=== PATIENT | male | born 1940 | race Caucasian/White ===

== ENCOUNTER 2020-01-14 12:06 | Inpatient (IN) | payer MEDICARE, SELFPAY ==
[2020-01-14] VITALS (9 sets, daily range): BP systolic 106–142; BP diastolic 56–96; PULSE 39–68; RESP 16–22; TEMP 36.1–36.6; O2SAT 99–100; BMI 37.5
--- NOTE | ~2020-01-14 | CT_ITS ---
EXAMINATION: CT brain wo con INDICATION: Dizziness COMPARISON: None TECHNIQUE: Standard unenhanced head CT. The dose-length product (DLP) was 681.00 mGy-cm. The mA was a djusted according to patient size. Iterative reconstruction technique was employed. FINDINGS: There is no acute intraparenchymal hemorrhage. No evidence of mass lesion. No evidence of a cute infarction. There is mild periventricular and subcortical hypodensity probably related to small vessel ischemic disease. There is mild prominence of the sulci and ventricles related to cerebral atr ophy. Intracranial calcified cerebral atherosclerosis is noted. There are no extra-axial collections. There is no mass effect or midline shift. The orbits and soft tissues are unremarkable. The visuali zed sinuses and mastoid air cells are well aerated. IMPRESSION: 1. No acute intracranial abnormality. 2. Age related findings. Reviewed, dictated and finalized at location A.
--- NOTE | ~2020-01-14 | US_ITS ---
EXAMINATION: US venous doppler [facility] DATE: 01/15/2020 12:42 INDICATION: Bilateral lower limb edema TECHNIQUE: Decker scale images without and with compression and Doppler images of the bilateral lower e xtremity veins were obtained. COMPARISON: None FINDINGS: The right common femoral vein, profunda femoral vein, femoral vein, popliteal vein, peroneal trunk, p osterior tibial veins, and greater saphenous vein are patent. The left common femoral vein, profunda femoral vein, femoral vein, popliteal vein, peroneal trunk, po sterior tibial veins, and greater saphenous vein are patent. IMPRESSION: 1. Patent bilateral lower extremity veins. No evidence of deep venous thrombosis. Reviewed, dictated and finalized at location A. IMPRESSION: 1. Patent bilateral lower extremity veins. No evidence of deep venous thrombosi s.
--- NOTE | ~2020-01-14 | MR_ITS ---
EXAMINATION: MR brain/brain stem wo con DATE: 01/15/2020 13:09 INDICATION: Falls with weakness, unsteady gait and balance issues. TECHNIQUE: Magnetic resonance imaging (MRI) of the brain and brainstem was performed without intraven ous contrast. Sequences included sagittal and axial T1-weighted SE, axial diffusion-weighted FS SE, a xial T2*-weighted GRE, axial T2-weighted FLAIR, and axial T2-weighted FSE. Apparent diffusion coeffic ient (ADC) maps were created. COMPARISON: Head CT dated 01/14/2020 FINDINGS: There are no areas of restricted diffusion to suggest acute infarction. No intracranial hemorrhage or abnormal intracranial mass lesion. There are scattered areas of nonspecific increased T2-weighted si gnal intensity in the cerebral white matter, predominantly involving the deep and periventricular whi te matter. There are no intraparenchymal signal abnormalities seen on the other pulse sequences. Symm etric prominence of the sulci and ventricles consistent with mild age-appropriate diffuse cerebral vo lume loss. The ventricles are symmetric and normal in size. There are no abnormal extra-axial fluid c ollections. Flow voids are seen in the cerebral arteries on the T2-weighted sequences consistent with their expected patency. Changes of bilateral intraocular lens replacement. Mild mucosal thickening i n the bilateral ethmoid and maxillary sinuses. Trace left mastoid effusion. IMPRESSION: 1. No acute intracranial process. 2. Age-related changes including mild diffuse volume loss and mild to moderate scattered nonspecific white matter T2 hyperintensity consistent with chronic small vessel ischemic disease. Reviewed, dictated and finalized at location A. IMPRESSION: 1. No acute intracranial process. 2. Age-related changes including mild diffuse volume loss and mild to moderate scattered nonspecific white matter T2 hyperintensity consistent with chronic sm all vessel ischemic disease.
--- NOTE | ~2020-01-14 | XR_ITS ---
EXAMINATION: XR chest 2V DATE: 01/14/2020 12:22 INDICATION: Weakness and loss of balance TECHNIQUE: AP and lateral views of the chest are obtained. COMPARISON: 11/26/2013 FINDINGS: The lungs are free of acute opacities. There is no pleural effusion or pneumothorax. Cardio megaly is noted. There is moderate-sized hiatal hernia. There is moderate thoracic spondylosis. IMPRESSION: 1. No acute cardiopulmonary abnormality. Reviewed, dictated and finalized at location A.
--- NOTE | 2020-01-14 12:11 | ECG_ITS ---
Measurements Intervals [place] Rate: 65 P: [place]: 0 QRS: -11 QRSD: 93 T: 1 QT: 431 QTc: 449 Interpretive Statements ATRIAL FIBRILLATION LOW QRS VOLTAGE IN PRECORDIAL LEADS BORDERLINE R WAVE PROGRESSION, ANTERIOR LEADS BASELINE ARTIFACT- V2 ABNORMAL ECG Electronically Signed On 01-14-2020 12:43:32 CDT by Devon Jarvis D.O.
[2020-01-14 12:35] LABS: Basophils Absolute Auto 0.1 K/mm3 (0.0-0.1); Basophils Percent Auto 1.2 % (0.2-1.2); Eosinophils Absolute Auto 0.1 K/mm3 (0-0.3); Eosinophils Percent Auto 1.2 % (0-4.4); Hematocrit 42.5 % (42.0-52.0); Hemoglobin 14.2 g/dL (14.0-18.0); Immature Granulocyte Absolute 0.02 K/mm3 (0.00-0.031); Immature Granulocyte Percent A 0.3 % (0-0.5); Lymphocytes Absolute Auto 2.01 K/mm3 (0.9-3.2); Lymphocytes Percent Auto 29.1 % (18.3-44.2); Mean Corpuscular HGB Conc 33.4 g/dl (32-36); Mean Corpuscular Hemoglobin 31.7 pg (26-34); Mean Corpuscular Volume 94.9 fl (80-100); Mean Platelet Volume 9.6 fl (7.4-10.4); Monocytes Absolute Auto 0.8 K/mm3 (0.1-0.6); Monocytes Percent Auto 11.6 % (2.6-8.5); Neutrophils Absolute Auto 3.9 K/mm3 (1.3-6.7); Neutrophils Percent Auto 56.6 % (45.5-73.1); Platelet Count Result 245 k/mm3 (150-375); Red Blood Count 4.48 M/mm3 (4.6-6.20); Red Cell Distribution Width 12.7 % (11.5-14.5); White Blood Count 6.9 K/mm3 (4.5-10.0)
[2020-01-14 12:48] LABS: Alanine Aminotransferase 32 U/L (4-50); Albumin Level 4.4 g/dL (3.5-5.1); Alkaline Phosphatase 61 U/L (38-126); Anion Gap 10 mmol/L (8-16); Aspartate Amino Transferase 36 U/L (17-59); Bilirubin,Total 0.6 mg/dL (0.2-1.3); Blood Urea Nitrogen 18 mg/dL (9-20); Calcium 8.7 mg/dL (8.4-10.2); Carbon Dioxide 29 mmol/L (22-30); Chloride 96 mmol/L (98-107); Estimated CRCL calculation 91 ml/min; Estimated Glomerular Filt Rate > 60; Glucose 156 mg/dL (75-110); Potassium 4.6 mmol/L (3.4-5.0); Sodium 135 mmol/L (137-145)
[2020-01-14 12:50] LABS: INR 2.4
[2020-01-14 12:59] LABS: NT Pro B Type Natriuretic Pept 793 PG/ML (5-100); Troponin I < 0.012 ng/mL (0.000-0.034)
--- NOTE | 2020-01-14 13:45 | ED.WEAKNESS ---
HPI - Weakness General Chief complaint: Weakness Stated complaint: dizziness Time Seen by Provider: 01/14/20 12:14 Source: patient, family and EMS Mode of arrival: EMS Limitations: no limitations History of Present Illness HPI Narrative: 79-year-old with a history of hypertension, diabetes, AF was brought in from home with complaints of feeling extremely dizzy for past 2 days. Patient states that he is unable to balance himself, fell couple times at home. He denies any headache, chest pain, shortness of breath. No history of nausea or vomiting. MD Complaint: generalized weakness Onset (ago): day(s) (2) Duration: constant Location: generalized Migration: none Relieving factors: none Exacerbating factors: none Related Data Home Medications Medication Instructions Recorded Confirmed tamsulosin 0.4 mg capsule 0.4 mg PO DAILY 12/15/19 12/15/19 Allergies Allergy/AdvReac Type Severity Reaction Status Date / Time No Known Allergies Allergy Verified 01/14/20 13:17 Review of Systems Constitutional: Constitutional: Reports as per HPI Eyes: Eyes: Reports no additional eye complaints ENT: Reports system reviewed and no additional complaints, except as documented Cardiovascular: Cardiovascular: Reports no additional cardiovascular complaints Respiratory: Respiratory: Reports no additional respiratory complaints Gastrointestinal: Gastrointestinal: Reports no additional gastrointestinal complaints Musculoskeletal: Musculoskeletal: Reports no additional musculoskeletal complaints Integumentary/Breasts: Skin/Breast: Reports system reviewed and no additional complaints, except as docu Neurologic: Reports system reviewed and no additional complaints, except as documented PMFSH Past Medical History Medical History Personal history of malignant neoplasm of bladder Social History Social History Smoking status: Never smoker Alcohol intake: never Exam Narrative: Exam Narrative: GENERAL: Well-appearing, well-nourished, and in no acute distress. HEAD: Normocephalic, atraumatic. EYES: .blind ENT: Nares clear, no rhinorrhea or epistaxis. Mucous membranes moist. NECK: Supple. CHEST: Clear to auscultation. No respiratory distress. HEART: Irregular ABDOMEN: Soft, nontender, nondistended, normal active bowel sounds. EXTREMITIES: Normal range of motion. No edema. SKIN: Warm, dry, no rash. NEURO: No focal deficits. Alert and oriented x3. PSYCH: Normal mood and affect. Course Course Emergency Course: Letter given history of unstable gait, fall will do a CT of the head make sure there is no bleed or stroke. Also do CBC and chemistry make sure that he is not anemic or having electrolyte imbalance. I suspect most likely could be from his peripheral neuropathy that his balance is off at this time however posterior cerebellar stroke stroke cannot be excluded. I discussed lab, CT Scan results with pt and is , pt is uncomfortable taking him home and is fear of falling. Vital Signs Vital signs: Vital Signs Temperature 36.6 C 01/14/20 12:05 Pulse Rate 67 01/14/20 12:05 Respiratory Rate 22 H 01/14/20 12:05 Blood Pressure 132/76 01/14/20 12:05 Pulse Oximetry 100 01/14/20 12:05 Temperature 36.6 C 01/14/20 12:05 Pulse Rate 51 L 01/14/20 13:18 Respiratory Rate 18 01/14/20 13:18 Blood Pressure 142/96 H 01/14/20 13:18 Pulse Oximetry 99 01/14/20 13:18 MDM - Weakness Differential Diagnosis Differential diagnosis: Likely hypoglycemia, dehydration and other (CVA, peripheral neuropathy, vertigo) Lab Data Result diagrams: 01/14/20 12:22 01/14/20 12:22 Labs: Lab Results 01/14/20 01/14/20 01/14/20 Range/Units 12:22 12:22 12:22 WBC 6.9 (4.5-10.0) K/mm3 RBC 4.48 L (4.6-6.20) M/mm3 Hgb 14.2 (14.0-18.0) g/dL Hct 42.5 (42.0-52.0)
[2020-01-14 15:05] LABS: Add Urine Microscopic? YES; Appearance Urine Cloudy (Clear); Bilirubin Urine Negative (Negative); Blood Urine Negative (Negative); Color Urine Yellow (Yellow); Glucose Urine UA Negative (Negative); Ketones Urine Negative (Negative); Leukocyte Esterase Ur Negative LEU/UL (Negative); Nitrate Urine Negative (Negative); Protein Urine Negative (Negative); RBC Urine 0-2 /hpf (0-2); Specific Grav Ur 1.014 (1.001-1.035); Squamous Epithelial Cell Urine Rare /hpf (Few); Urobilinogen Urine Negative mg/dL (<2.0); WBC Urine 0-3 /hpf
--- NOTE | 2020-01-14 15:15 | ADMGEN ---
This patient, Neri Ruiz, was admitted to Medical Room 249-01. Patient/family oriented to hospital policies and general routines including ID bracelet, bed and alarms, visiting hours, pain management, procedures, bathroom and other care routines, personal items, smoking policy, room service/diet, and visiting hours. Valuables list has been completed. Information on how to activate the Rapid Response Team has been discussed. Patient/Family are encouraged to report perceived risks to care and to ask questions if they do not understand what they are told or what they should do.
--- NOTE | 2020-01-14 17:15 | PM.IMHP ---
H&P: HPI History of Present Illness Date/Time: 01/14/20 17:30 Chief complaint: Falls, balance problems. 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 For the past couple of days he has been extremely off balance, and is difficult for him to further qualify that. Apparently he reported to the ED physician that he was feeling dizzy, however denies feeling lightheaded and dizzy to me and says I just keep losing my balance. He does not necessarily have vertigo either, specifically denying spinning sensations and feelings of being pulled. Two nights ago he fell, requiring EMS to come for lift assist, and he declined transport at that time. Unfortunately, his balance continues to be poor, mainly when standing and walking and thus he was brought in for evaluation. He denies head trauma and loss of consciousness with his falls, and states that he did not injure himself. It is been documented that he has peripheral neuropathy from his diabetes, however he adamantly denies that to me. He also denies paresthesias, focal weakness, chest pain, pleuritic pain, palpitations, and shortness of breath. He has been eating and drinking as per usual and denies nausea, vomiting, and diarrhea. He has not had any recent change in medications, and his pills are dispensed to him by his , thus he could not have accidentally taken extra medication. Review of Systems Review of Systems: Narrative: Twelve systems were reviewed with pertinent positives and negatives as per HPI. No headache. 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 No recent cold or flu symptoms. He denies recent travel and sick contacts. No cough or shortness of breath. He denies nausea, vomiting, diarrhea. No dysuria. Except as documented, all other systems were reviewed and are negative. [facility] Past Medical History Medical History (Updated 01/14/20 @ 18:34 by Lilliam Rice PA-C) Atrial fibrillation Benign prostatic hyperplasia Current use of senior care anticoagulation On warfarin for stroke prophylaxis due to atrial fibrillation. Depression Essential hypertension Gastroesophageal reflux disease Hearing loss Hiatal hernia Legal blindness Secondary to macular degeneration. Mixed hyperlipidemia Obstructive sleep apnea on CPAP Osteoarthritis Personal history of malignant neoplasm of bladder Type 2 diabetes mellitus Hemoglobin A1c was 7.1% in November 2019. Surgical History Surgical History (Updated 01/14/20 @ 18:22 by Lilliam Rice PA-C) History of appendectomy History of tonsillectomy Family History Family History Other Adopted Social History Social History (Updated 01/14/20 @ 18:23 by Lilliam Rice PA-C) Social History: Surrogate decision maker: Celina Ruiz, spouse. Code status: Full code. Smoking status: Never smoker Alcohol intake: never Substance use: never Additional living arrangements comments: Resides in [place], [place] with his . They have 2 grown daughters. 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 Previously enjoyed flying single engine airplanes. Gender identity (if verbalized by the patient): Male Spiritual care concerns: No Meds Home Medications and Allergies Home Medications Medication Instructions Recorded Confirmed Type glipizide 5 mg tablet, extended 5 mg PO DAILY #90 tablet 06/07/19 01/14/20 Rx release 24 hr spironolactone 25 mg tablet 25 mg PO DAILY #90 tablet 10/13/19 01/14/20 Rx metoprolol tartrate 25 mg tablet 25 mg P
[2020-01-14 17:48] LABS: Glucose Point of Care 124 (65-105)
[2020-01-14] MEDS: SERTRALINE HCL 50 MG TABLET PO (21:31)
[2020-01-14 22:13] LABS: Glucose Point of Care 128 (65-105)
[2020-01-15] VITALS (21 sets, daily range): BP systolic 101–141; BP diastolic 48–88; PULSE 46–86; RESP 12–20; TEMP 35.8–37.2; O2SAT 96–100
[2020-01-15 06:04] LABS: Hematocrit 40.4 % (42.0-52.0); Hemoglobin 13.4 g/dL (14.0-18.0); Mean Corpuscular HGB Conc 33.2 g/dl (32-36); Mean Corpuscular Hemoglobin 31.5 pg (26-34); Mean Corpuscular Volume 94.8 fl (80-100); Mean Platelet Volume 9.5 fl (7.4-10.4); Platelet Count Result 239 k/mm3 (150-375); Red Blood Count 4.26 M/mm3 (4.6-6.20); Red Cell Distribution Width 12.5 % (11.5-14.5); White Blood Count 6.3 K/mm3 (4.5-10.0)
[2020-01-15 06:22] LABS: Alanine Aminotransferase 31 U/L (4-50); Alkaline Phosphatase 65 U/L (38-126); Anion Gap 8 mmol/L (8-16); Aspartate Amino Transferase 36 U/L (17-59); Bilirubin,Total 0.6 mg/dL (0.2-1.3); Blood Urea Nitrogen 16 mg/dL (9-20); Calcium 8.6 mg/dL (8.4-10.2); Carbon Dioxide 26 mmol/L (22-30); Chloride 100 mmol/L (98-107); Estimated CRCL calculation 90 ml/min; Estimated Glomerular Filt Rate > 60; Glucose 130 mg/dL (75-110); Magnesium 2.5 mg/dL (1.6-2.3); Potassium 4.1 mmol/L (3.4-5.0); Sodium 134 mmol/L (137-145)
[2020-01-15 06:39] LABS: INR 2.6; Prothrombin Time 27.2 Seconds (11.1-14.7)
[2020-01-15] MEDS: ATORVASTATIN 20 MG TABLET PO (09:14)
[2020-01-15] MEDS: TAMSULOSIN HCL 0.4 MG CAPSULE PO (09:14)
[2020-01-15] MEDS: glipiZIDE XL 5 MG TABCR PO (09:14)
[2020-01-15] MEDS: SPIRONOLACTONE 25 MG TABLET PO (09:15)
[2020-01-15] MEDS: PANTOPRAZOLE 40 MG TABLET PO ×2 (09:15→16:51)
[2020-01-15 09:25] LABS: Glucose Point of Care 159 (65-105)
[2020-01-15] MEDS: ASPIRIN 81 MG CHEWABLE TABLET PO (09:55)
[2020-01-15] MEDS: LOSARTAN POTASSIUM 25 MG TABLET PO (12:01)
--- NOTE | 2020-01-15 13:06 | PM.IMPN ---
Progress Note: A&P Assessment and Plan (1) Recurrent falls: Code(s): R29.6 - Repeated falls Status: Acute Assessment and Plan: I am not certain why he just began having falls over the past couple of days, but seem to be related to his new onset of balance problems. Head CT and MRI were obtained due to concern for posterior stroke, both negative for acute process. He is orthostatic which may be contributing. Monitor on telemetry. Initiate fall precautions and consult PT/OT. (2) Balance problem: Code(s): R26.89 - Other abnormalities of gait and mobility Status: Acute Assessment and Plan: Patient has a difficult time describing why he feels off balance, but he denies vertigo, lightheadedness, and dizziness. He feels he must grab on to something to steady himself. 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 He denies symptoms with positional changes. As above, will initiate fall precautions and consult PT / OT. Brain MRI was negative for acute process. Patient is orthostatic which may explain symptoms. Continue to monitor Echo has been ordered and will await results (3) Orthostatic hypotension: Code(s): I95.1 - Orthostatic hypotension Status: Acute Assessment and Plan: Patient is orthostatic but reports he is asymptomatic with positional changes. Patient is euvolemic. Apply Edy hose Monitor orthostatics each shift Hold antihypertensives at this time and monitor blood pressures closely (4) Atrial fibrillation: Code(s): I48.91 - Unspecified atrial fibrillation Status: Acute Assessment and Plan: Rate controlled the time my evaluation however he has had episodes of bradycardia into the 30s and 40s. Review of telemetry shows atrial fibrillation with episodes of bradycardia into the 30-40s and sinus pauses. He remains asymptomatic with episodes. Possible that bradycardia/pauses are contributing to his balance issues/falls and therefore will obtain cardiology consult and appreciate recommendations. Continue metoprolol with parameters. (5) Current use of mcfp anticoagulation: Code(s): Z79.01 - intermodal dispatcher (current) use of anticoagulants Status: Acute Assessment and Plan: INR is 2.6 today. Warfarin had been held while awaiting MRI to rule out acute stroke. MRI was negative. Resume Warfarin Repeat INR tomorrow (6) Obstructive sleep apnea on CPAP: Code(s): G47.33 - Obstructive sleep apnea (adult) (pediatric); Z99.89 - Dependence on other enabling machines and devices Status: Acute Assessment and Plan: CPAP will be made available for him while hospitalized. (7) Essential hypertension: Code(s): I10 - Essential (primary) hypertension Status: Acute Assessment and Plan: Blood pressures were reviewed and they are well controlled however patient is orthostatic. Hold antihypertensives at this time and monitor blood pressures closely (8) Type 2 diabetes mellitus: Code(s): E11.9 - Type 2 diabetes mellitus without complications Status: Acute Assessment and Plan: Hemoglobin A1c was 7.1% in November 2019. Continue glipizide Initiate sliding scale insulin, Accu-Cheks, and hypoglycemic protocol. Subjective Date/time seen: 01/15/20 13:06 Interval history: Date of service: 01/15/2020 Patient is a legally blind 79-year-old male with a history of AFib, HTN, HLD, and RACHAEL who is here for evaluation of falls and balance problems. Patient reports that he is feeling well today. At this time, he denies any dizziness or lightheadedness. He says a when he gets up and walks he feels unsteady on his feet almost as if the earth is moving below him and he must grab onto something for balance. At rest, he feels comfortable. He does not endorse symptoms with positional changes.
[2020-01-15 13:29] LABS: Glucose Point of Care 125 (65-105)
[2020-01-15] MEDS: WARFARIN (*PBKC) 4 MG TABLET 8 MG PO (17:55)
[2020-01-15] MEDS: WARFARIN (*PBKC) 1 MG TABLET PO (17:56)
[2020-01-15 18:15] LABS: Glucose Point of Care 111 (65-105)
--- NOTE | 2020-01-15 18:50 | PC.NURSE ---
This patient, Neri Ruiz, was transferred to IMU on 01/15/20 at 1851. Personal belongings sent with patient. Belongings list checked and signed with receiving. Report given to Yumiko. Appropriate documentation sent with patient.
--- NOTE | 2020-01-15 18:55 | PC.NURSE ---
This patient, Neri uRiz, was received from [[id number] ] on 01/15/20 at 1845. Personal belongings list checked and signed. Patient/family oriented to unit policies and routines. Patient alert, awake, oriented. Vital signs stable, Patient on room air.
[2020-01-15 20:19] LABS: Glucose Point of Care 127 (65-105)
[2020-01-15] MEDS: SERTRALINE HCL 50 MG TABLET PO (20:22)
[2020-01-16] VITALS (20 sets, daily range): BP systolic 109–142; BP diastolic 54–84; PULSE 54–89; RESP 16–22; TEMP 36.1–36.6; O2SAT 95–100
[2020-01-16 04:58] LABS: Hematocrit 40.8 % (42.0-52.0); Hemoglobin 13.8 g/dL (14.0-18.0); Mean Corpuscular HGB Conc 33.8 g/dl (32-36); Mean Corpuscular Hemoglobin 32.2 pg (26-34); Mean Corpuscular Volume 95.1 fl (80-100); Mean Platelet Volume 9.4 fl (7.4-10.4); Platelet Count Result 225 k/mm3 (150-375); Red Blood Count 4.29 M/mm3 (4.6-6.20); Red Cell Distribution Width 12.5 % (11.5-14.5); White Blood Count 6.7 K/mm3 (4.5-10.0)
[2020-01-16 05:08] LABS: INR 1.9; Prothrombin Time 21.2 Seconds (11.1-14.7)
[2020-01-16 05:44] LABS: Alanine Aminotransferase 31 U/L (4-50); Albumin Level 3.9 g/dL (3.5-5.1); Alkaline Phosphatase 58 U/L (38-126); Anion Gap 7 mmol/L (8-16); Aspartate Amino Transferase 37 U/L (17-59); Blood Urea Nitrogen 14 mg/dL (9-20); Calcium 8.6 mg/dL (8.4-10.2); Carbon Dioxide 26 mmol/L (22-30); Chloride 101 mmol/L (98-107); Estimated CRCL calculation 90 ml/min; Estimated Glomerular Filt Rate > 60; Glucose 156 mg/dL (75-110); Magnesium 2.3 mg/dL (1.6-2.3); Potassium 4.3 mmol/L (3.4-5.0); Sodium 134 mmol/L (137-145)
--- NOTE | 2020-01-16 08:16 | PCPTNOTE ---
Patient okay to be continued to be seen by physical therapy, medically stable to progress as tolerated.
--- NOTE | 2020-01-16 08:17 | PCOTNOTE ---
Spoke to RN, ok to continue Occupational Therapy at this time.
[2020-01-16 08:56] LABS: Glucose Point of Care 157 (65-105)
--- NOTE | 2020-01-16 09:32 | PM.CNCAR ---
Assessment and Plan Additional Plan 79-year-old man who probably has chronic atrial fibrillation by his history. He has been treated with metoprolol and warfarin by his PCP and has not really had any other cardiac history from what he tells me. The concern at hand is that he has episodes of bradycardia. He is on a very small dose of metoprolol but nothing else to provide rate control. He is systemically anticoagulated with warfarin and his INR has been therapeutic. I would recommend discontinuing the metoprolol as I doubt he needs it for rate control any longer and follow his telemetry. At this point he does not have an indication for pacing he has no history of syncope with regard to this bradycardia. We will follow him with you while he is in the hospital Anatoliy Munoz MD [facility] History of Present Illness History of Present Illness Consult date/time: date of service:01/16/20 09:32 Consult reason: atrial fibrillation Reason For Visit: Falls, balance problems. Narrative: This is a 79-year-old man who I am seeing at the request of the hospitalist because of bradycardia which was noted on telemetry. He is unknown to me prior to this encounter. The patient is I believe legally blind and but is able to provide a fairly good history. He states that he was admitted to the hospital because he was having difficulty with unsteadiness of his gait at home. Over the last year this unsteady gait his resulted in a couple of falls he does not fall with any frequency he has never lost consciousness or had an abrupt syncopal episode. In the hospital he has been placed on telemetry and it is noticed that he is in atrial fibrillation with a somewhat slow ventricular response. At times his heart rate him on telemetry was as low as in the 30s and 40s so he was transferred to IMU from the regular telemetry floor last evening and we have been asked to see him in consultation. The patient follows with Dr. Macario Ferreira who is his PCP does not believe that he follows with a supervisor production managing. He does have a history of atrial fibrillation for a number of years he does not really know how many years this has been. He does not believe there has been any other difficulty with his heart besides AFib. For treatment of this he is taking warfarin and metoprolol. His metoprolol dosage is rather low at 25 mg daily. He does not report any symptoms of chest pain pressure or heaviness he denies any orthopnea PND or accumulating edema. Review of Systems Constitutional: Constitutional: Reports as per HPI Eyes: Eyes: Reports no additional eye complaints ENT: Reports system reviewed and no additional complaints, except as documented Cardiovascular: Cardiovascular: Reports no additional cardiovascular complaints Respiratory: Respiratory: Reports no additional respiratory complaints Gastrointestinal: Gastrointestinal: Reports no additional gastrointestinal complaints Genitourinary: Genitourinary: Reports no additional male genitourinary complaints Musculoskeletal: Musculoskeletal: Reports no additional musculoskeletal complaints Integumentary/Breasts: Skin/Breast: Reports system reviewed and no additional complaints, except as docu Neurologic: Reports abnormal gait Psychiatric: Psychiatric: Reports no additional psychiatric complaints Endocrine: Endocrine: Reports no additional endocrine complaints Hematologic/Lymphatic: Hematologic/Lymphatic: Reports no additional hematologic/lymphatic complaints Allergic/Immunologic: Allergic/Immunologic: Reports no additional allergic/immunologic complaints [facility] Past Medical History Medical History (Updated 01/15/20 @ 13:09 by Nancy Jay PA-C) Atrial fibrillation Benign prostatic hyperplasia Current use of mcfp anticoagulation On warfarin for stroke prophylaxis due to atrial fibrillation. Depression Essential hypertension Gastroesophageal reflux disease Hearing loss Hiatal hernia Legal blindness Se
[2020-01-16] MEDS: PERFLUTREN LIPID MICROSPHERES 1.5 ML VIAL DILUTED TO 10 ML TOTAL VOLUME IV PUSH (09:40)
[2020-01-16] MEDS: ATORVASTATIN 20 MG TABLET PO (10:03)
[2020-01-16] MEDS: ASPIRIN 81 MG CHEWABLE TABLET PO (10:03)
[2020-01-16] MEDS: glipiZIDE XL 5 MG TABCR PO (10:03)
[2020-01-16] MEDS: TAMSULOSIN HCL 0.4 MG CAPSULE PO (10:03)
[2020-01-16] MEDS: PANTOPRAZOLE 40 MG TABLET PO ×2 (10:04→17:05)
[2020-01-16] MEDS: SPIRONOLACTONE 25 MG TABLET PO (10:04)
--- NOTE | 2020-01-16 11:47 | P.PNIM_ITS ---
Progress Note: A&P Assessment and Plan (1) Recurrent falls: Code(s): R29.6 - Repeated falls Status: Acute Assessment and Plan: This seems to be related to his new onset of balance problems. Head CT and MRI were obtained due to concern for posterior stroke, both negative for acute process. He is orthostatic which may be contributing though he denies positional symptoms. * Monitor on telemetry. * Fall precautions and continue PT/OT. (2) Balance problem: Code(s): R26.89 - Other abnormalities of gait and mobility Status: Acute Assessment and Plan: Patient has a difficult time describing why he feels off balance, but he denies vertigo, lightheadedness, and dizziness. He feels he must grab on to something to steady himself. 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 He denies symptoms with positional changes. * As above, continue fall precautions and consult PT / OT. * Brain MRI was negative for acute process. * Patient is orthostatic which may contribute to symptoms. Continue to monitor * Echo has been performed and will await results (3) Orthostatic hypotension: Code(s): I95.1 - Orthostatic hypotension Status: Acute Assessment and Plan: Reports he is asymptomatic with positional changes. Patient is euvolemic. On r epeat monitoring today, he was not orthostatic. * Apply Edy hose * Monitor orthostatics each shift * Hold antihypertensives at this time and monitor blood pressures closely (4) Atrial fibrillation: Code(s): I48.91 - Unspecified atrial fibrillation Status: Acute Assessment and Plan: Review of telemetry shows atrial fibrillation with episodes of bradycardia into the 30-40s with sinus pauses lasting about 2 seconds. He remains asymptomatic with episodes. * Possible that bradycardia/pauses are contributing to his balance issues/falls and therefore will obtain cardiology consult and appreciate recommendations. * Metoprolol has been discontinued per cardiology recommendations. Monitor telemetry (5) Current use of superintendent container terminal anticoagulation: Code(s): Z79.01 - shelter (current) use of anticoagulants Status: Acute Assessment and Plan: Warfarin had been held while awaiting MRI to rule out acute stroke. MRI was negative. * Warfarin resumed 01/14. INR just below therapeutic range today at 1.9. No adjustments to be made at this time as this was probably a result of holding warfarin. Repeat INR tomorrow. (6) Obstructive sleep apnea on CPAP: Code(s): G47.33 - Obstructive sleep apnea (adult) (pediatric); Z99.89 - Dependence on o ther enabling machines and devices Status: Acute Assessment and Plan: * CPAP will be made available for him while hospitalized. (7) Essential hypertension: Code(s): I10 - Essential (primary) hypertension Status: Acute Assessment and Plan: Blood pressures were reviewed and they are well controlled, however patient is orthostatic. * Hold Losartan and monitor blood pressures closely (8) Type 2 diabetes mellitus: Code(s): E11.9 - Type 2 diabetes mellitus without complications Status: Acute Assessment and Plan: Hemoglobin A1c was 7.1% in November 2019. * Continue glipizide * sliding scale insulin, Accu-Cheks, and hypoglycemic protocol. Subjective Date/time seen: 01/16/20 11:47 Interval history: Date of service: 01/14
--- NOTE | 2020-01-16 11:47 | PM.IMPN ---
Progress Note: A&P Assessment and Plan (1) Recurrent falls: Code(s): R29.6 - Repeated falls Status: Acute Assessment and Plan: This seems to be related to his new onset of balance problems. Head CT and MRI were obtained due to concern for posterior stroke, both negative for acute process. He is orthostatic which may be contributing though he denies positional symptoms. Monitor on telemetry. Fall precautions and continue PT/OT. (2) Balance problem: Code(s): R26.89 - Other abnormalities of gait and mobility Status: Acute Assessment and Plan: Patient has a difficult time describing why he feels off balance, but he denies vertigo, lightheadedness, and dizziness. He feels he must grab on to something to steady himself. 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 He denies symptoms with positional changes. As above, continue fall precautions and consult PT / OT. Brain MRI was negative for acute process. Patient is orthostatic which may contribute to symptoms. Continue to monitor Echo has been performed and will await results (3) Orthostatic hypotension: Code(s): I95.1 - Orthostatic hypotension Status: Acute Assessment and Plan: Reports he is asymptomatic with positional changes. Patient is euvolemic. On repeat monitoring today, he was not orthostatic. Apply Edy hose Monitor orthostatics each shift Hold antihypertensives at this time and monitor blood pressures closely (4) Atrial fibrillation: Code(s): I48.91 - Unspecified atrial fibrillation Status: Acute Assessment and Plan: Review of telemetry shows atrial fibrillation with episodes of bradycardia into the 30-40s with sinus pauses lasting about 2 seconds. He remains asymptomatic with episodes. Possible that bradycardia/pauses are contributing to his balance issues/falls and therefore will obtain cardiology consult and appreciate recommendations. Metoprolol has been discontinued per cardiology recommendations. Monitor telemetry (5) Current use of intermediate frame tender anticoagulation: Code(s): Z79.01 - [facility] (current) use of anticoagulants Status: Acute Assessment and Plan: Warfarin had been held while awaiting MRI to rule out acute stroke. MRI was negative. Warfarin resumed 01/14. INR just below therapeutic range today at 1.9. No adjustments to be made at this time as this was probably a result of holding warfarin. Repeat INR tomorrow. (6) Obstructive sleep apnea on CPAP: Code(s): G47.33 - Obstructive sleep apnea (adult) (pediatric); Z99.89 - Dependence on other enabling machines and devices Status: Acute Assessment and Plan: CPAP will be made available for him while hospitalized. (7) Essential hypertension: Code(s): I10 - Essential (primary) hypertension Status: Acute Assessment and Plan: Blood pressures were reviewed and they are well controlled, however patient is orthostatic. Hold Losartan and monitor blood pressures closely (8) Type 2 diabetes mellitus: Code(s): E11.9 - Type 2 diabetes mellitus without complications Status: Acute Assessment and Plan: Hemoglobin A1c was 7.1% in November 2019. Continue glipizide sliding scale insulin, Accu-Cheks, and hypoglycemic protocol. 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 he denies any feelings of being off balance at this time. He worked with therapy earlier and tolerated this well. He did not feel dizzy or lightheaded. He denies symptoms at rest or with exertion. He did not any symptoms with positional changes. He denies chest pain or palpitations. He denies weakness
[2020-01-16] MEDS: INSULIN ASPART (*BKC) 100 UNITS/ML SUB-Q (11:58)
[2020-01-16 12:06] LABS: Glucose Point of Care 216 (65-105)
[2020-01-16] MEDS: MAGNESIUM HYDROXIDE SUSP 30 ML UDC PO (14:40)
[2020-01-16] MEDS: WARFARIN (*PBKC) 4 MG TABLET 8 MG PO (17:06)
[2020-01-16 17:21] LABS: Glucose Point of Care 114 (65-105)
--- NOTE | 2020-01-16 18:37 | ECHO_ITS ---
Patient Info Name: Neri Ruiz Age: 79 years : 1940 Gender: Male Ht: 71 in Wt: 269 lbs BSA: 2.52 m2 HR: 63 bpm BP: 109 / 63 mmHg Heart Rhythm: Atrial Fibrillation Technical Quality: Poor Exam Date: 01/16/2020 9:09 AM Exam Location: [facility] Pulmonary Patient Status: Inpatient Admit Date: 01/16/2020 Staff Ordering Physician: Lilliam Rice PA-C Licensing Analyst: Chandrika Covarrubias RDCS Attending Provider: Nancy Jay PA-C Referring Physician: Krystal MENDIOLA; Exam Type: CA echo dop color flow w con Study Info Indications I48.1 - Persistent atrial fibrillation Complete two-dimensional, color flow and Doppler transthoracic echocardiogram is performed with contrast to opacify the left ventricle and to improve the deliniation of the left ventricle endocardial borders. Contrast/Agitated Saline Contrast/Ag. Saline: Definity Amount: 1.00 ml IV Access Condition: patent with no signs of infiltration Site Condition: No extravasation Reason for Poor Study: patient body habitus Summary 1. Left ventricular chamber dimension is normal. 2. Left ventricular systolic function is normal, estimated at 55-60%. 3. Definity contrast injected to improve visualization. 4. Left atrial chamber dimension is moderately enlarged. 5. There is trace mitral valve regurgitation. Left Ventricle Left ventricular chamber dimension is normal. Left ventricular systolic function is normal, estimated at 55-60%. Definity contrast injected to improve visualization. Right Ventricle Right ventricular chamber dimension is normal. Left Atria Left atrial chamber dimension is moderately enlarged. Right Atria Right atrial chamber dimension is normal. Aortic Valve The aortic valve is trileaflet. There is mild aortic valve sclerosis. Pulmonic Valve The pulmonic valve is not well visualized. Mitral Valve The mitral valve has normal leaflets. There is trace mitral valve regurgitation. Tricuspid Valve The tricuspid valve leaflets are normal. Pericardium/Pleural The pericardium appears normal. Aorta The aortic root size at the sinus of Valsalva is normal. Left Ventricular Outflow Tract Name Value Normal LVOT 2D LVOT Diameter 1.86 cm LVOT Doppler LVOT Peak Gradient 3 mmHg LVOT Mean Gradient 2 mmHg LVOT VTI 26.94 cm LVOT VTI/AV VTI Ratio 0.93 LVOT Stroke Volume 73.49 ml LVOT CO 3.34 l/min LVOT CI 1.32 L/min/m2 Pulmonic Valve Name Value Normal RVOT Doppler RVOT Peak Gradient 3 mmHg PV Doppler PV
[2020-01-16 20:33] LABS: Glucose Point of Care 225 (65-105)
[2020-01-16] MEDS: SERTRALINE HCL 50 MG TABLET PO (21:14)
[2020-01-17] VITALS (10 sets, daily range): BP systolic 113–136; BP diastolic 68–71; PULSE 37–107; RESP 18–20; TEMP 36.1–36.7; O2SAT 97–100
[2020-01-17 04:46] LABS: Hematocrit 42.1 % (42.0-52.0); Hemoglobin 14.3 g/dL (14.0-18.0); Mean Corpuscular Hemoglobin 32.1 pg (26-34); Mean Corpuscular Volume 94.4 fl (80-100); Mean Platelet Volume 9.4 fl (7.4-10.4); Platelet Count Result 231 k/mm3 (150-375); Red Blood Count 4.46 M/mm3 (4.6-6.20); Red Cell Distribution Width 12.6 % (11.5-14.5); White Blood Count 6.5 K/mm3 (4.5-10.0)
[2020-01-17 04:58] LABS: INR 1.9
[2020-01-17 05:01] LABS: Anion Gap 7 mmol/L (8-16); Blood Urea Nitrogen 12 mg/dL (9-20); Calcium 8.5 mg/dL (8.4-10.2); Carbon Dioxide 27 mmol/L (22-30); Chloride 100 mmol/L (98-107); Estimated CRCL calculation 90 ml/min; Estimated Glomerular Filt Rate > 60; Glucose 154 mg/dL (75-110); Potassium 4.1 mmol/L (3.4-5.0); Sodium 134 mmol/L (137-145)
[2020-01-17] MEDS: ATORVASTATIN 20 MG TABLET PO (08:19)
[2020-01-17] MEDS: TAMSULOSIN HCL 0.4 MG CAPSULE PO (08:19)
[2020-01-17] MEDS: glipiZIDE XL 5 MG TABCR PO (08:19)
[2020-01-17] MEDS: PANTOPRAZOLE 40 MG TABLET PO (08:19)
[2020-01-17] MEDS: ASPIRIN 81 MG CHEWABLE TABLET PO (08:19)
[2020-01-17] MEDS: SPIRONOLACTONE 25 MG TABLET PO (08:19)
[2020-01-17 08:25] LABS: Glucose Point of Care 157 (65-105)
--- NOTE | 2020-01-17 13:26 | PM.PNCARD ---
Progress Note: A&P Assessment and Plan (1) Bradycardia: Code(s): R00.1 - Bradycardia, unspecified Status: Acute Assessment and Plan: Patient with persistent AFib and intermittent bradycardia with brief pauses. Metoprolol discontinued. Still has some mild bradycardia at night and brief pauses but nothing significant. Brief AFib RVR, but again very brief period So far nothing which would prompt pacemaker implant. If the patient had symptoms that could be definitely correlated with bradycardia we can reconsider. If he develops significant tachycardia and appears to have significant tachy-christopher syndrome we can also reconsider pacemaker. Okay for discharge from my point of view. Recommend outpatient monitoring for further evaluation. FU w/ my office. (2) Atrial fibrillation: Code(s): I48.91 - Unspecified atrial fibrillation Status: Acute Assessment and Plan: Persistent AFib, anticoagulated with warfarin, stable. (3) Orthostatic hypotension: Code(s): I95.1 - Orthostatic hypotension Status: Acute Assessment and Plan: History of balance problems, falls, and possible orthostasis. Patient feels improved. (4) Current use of parts counterman anticoagulation: Code(s): Z79.01 - senior living (current) use of anticoagulants Status: Acute Assessment and Plan: Takes warfarin, INR 1.9 - 2.6 . Subjective Date/time seen: 01/17/20 13:26 Patient with persistent AFib found to have some bradycardia taking metoprolol 25 mg daily. This was discontinued. Also was having balance problems and a fall. Date of service: 01/17/2020 Patient reports his problems have resolved and he is eager for discharge. Apparently has walked the halls several times with no problems. Had apnea link last night, I cannot find the results. telemetry shows AFib, heart rate occasionally down into the 40s at night, has pauses of about 2 0.0-2.1 seconds. Review of Systems Constitutional: Constitutional: Denies fatigue and Denies weakness Eyes: Eyes: Reports blurry vision ( Significant visual problems, chronic) ENT: Denies epistaxis Cardiovascular: Cardiovascular: Denies chest pain and Denies leg edema ( wears compression stockings) Respiratory: Respiratory: Denies chest congestion and Denies dyspnea Gastrointestinal: Gastrointestinal: Denies abdominal pain Genitourinary: Genitourinary: Denies dysuria Musculoskeletal: Musculoskeletal: Denies back pain Integumentary/Breasts: Skin/Breast: Denies rash Neurologic: Reports system reviewed and no additional complaints, except as documented Psychiatric: Psychiatric: Reports no additional psychiatric complaints Exam Narrative: Exam Narrative: Old male sitting in a chair, visual impairment, hard of hearing, no distress. Const: General: comfortable and no acute distress HENMT: General nose exam: no epistaxis Neck: Neck: supple Resp: Effort & Inspection: normal respiratory effort Auscultation: clear to auscultation bilaterally Cardio: Rate: regular rate Rhythm: abnormal rhythm and abnormal rhythm irregularly irregular GI: Inspection: non-distended Skin: General skin exam: normal color Neuro: Cognition (Neuro): normal cognition Speech: normal speech Extrem: General: no pedal edema ( Wearing compression stockings) Psych: Mental Status: mental status grossly normal Affect: normal affect Objective Data Vital Signs Vital Signs: Vital Signs - 24 hr 01/16/20 14:00 01/16/20 16:00 01/16/20 16:23 Temperature 96.9 F L Pulse Rate 67 89 79 Respiratory Rate 16 Blood Pressure 137/65 Pulse Oximetry 100 01/16/20 19:24 01/16/20 20:00 01/16/20 21:00 Temperature 97.4 F L 97.4 F L Pulse Rate 84 84 Respiratory Rate 20 20 Blood Pressure 142/70 H 142/70 H 110/63 Pulse Oximetry 100 10
[2020-01-17 16:52] LABS: Glucose Point of Care 167 (65-105)
--- NOTE | 2020-01-17 17:25 | PM.DS ---
DS: Admitting Diagnosis Admitting Diagnosis Admitting Diagnosis: Falls, balance problems. DS: Discharge Diagnosis Discharge Diagnosis (1) Recurrent falls: Code(s): R29.6 - Repeated falls Status: Acute Assessment and Plan: Date of Service 01/17/20 Mr. Ruiz is a very pleasant, blind 79yo M with history of atrial fibrillation, long-term anticoagulation with warfarin, non-insulin dependent type 2 diabetes mellitus and obstructive sleep apnea who presented to the ER for evaluation of losing balance while attempting to walk and a fall 2 days prior to arrival. He required EMS lift assistance at home. On arrival, CT and MRI brain show no acute findings. He was monitored with cardiac telemetry and noted to have bradycardia with rates into the 30s with some short pauses. He was evaluated by cardiology for this and his oral metoprolol was discontinued. He was feeling much improved on day of discharge and heart rates were stable in 60s-80s. He was hemodynamically stable for discharge 01/17/20 with instructions to discontinue metoprolol and follow up with cardiology outpatient. Home health for PT/OT was arranged. (2) Balance problem: Code(s): R26.89 - Other abnormalities of gait and mobility Status: Acute Assessment and Plan: Patient has a difficult time describing why he feels off balance, but he denies vertigo, lightheadedness, and dizziness. He feels he must grab on to something to steady himself. 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 He denies symptoms with positional changes. PT/OT. May have been related to bradycardia. Improved. (3) Orthostatic hypotension: Code(s): I95.1 - Orthostatic hypotension Status: Acute (4) Atrial fibrillation: Code(s): I48.91 - Unspecified atrial fibrillation Status: Acute Assessment and Plan: Metoprolol held due to bradycardia. Anticoagulated with warfarin. Follow up with cardiology. (5) Current use of oysterman anticoagulation: Code(s): Z79.01 - care home (current) use of anticoagulants Status: Acute Assessment and Plan: describes he is supposed to get INR checked monthly, managed by PCP and has been on the same warfarin dose for many years. INR 1.9 on day of discharge and will continue his current dose. Warfarin was held for a brief period while awaiting imaging results to ensure no hemorrhagic stroke. Slightly subtherapeutic INR may be related to the brief hold on warfarin. Continue his normal dose and follow up with PCP for monitoring. (6) Obstructive sleep apnea on CPAP: Code(s): G47.33 - Obstructive sleep apnea (adult) (pediatric); Z99.89 - Dependence on other enabling machines and devices Status: Acute Assessment and Plan: CPAP (7) Essential hypertension: Code(s): I10 - Essential (primary) hypertension Status: Acute Assessment and Plan: Some orthostatic hypotension was noted during the admission, but BP stable at discharge. Continue home losartan. Metoprolol discontinued due to bradycardia. (8) Type 2 diabetes mellitus: Code(s): E11.9 - Type 2 diabetes mellitus without complications Status: Acute Assessment and Plan: Hemoglobin A1c was 7.1% in November 2019. Continue glipizide and metformin. Follow up with PCP. DS: Summary Time Spent with Patient Time attestation: Total time spent providing and/or coordinating discharge services: 35 minutes Exam Narrative: Exam Narrative: Mr. Ruiz is a well-nourished 79-year-old male who is comfortably sitting up in bedside chair in no acute di
== END 2020-01-17 15:05 | disposition home health service (06) | DRG 310 ==
LOC: ANHED 13:53 → ANH2MED 14:31 → ANHIMU 01-15 18:57
PROVIDERS: Emergency Medicine; Internal Medicine; Physician Assistant; Admitting Provider Family Medicine; Emergency Provider Family Medicine; PCP Family Medicine; Visit Provider Physician Assistant
DX: I48.19 Other persistent atrial fibrillation (principal); R00.1 Bradycardia, unspecified; I95.1 Orthostatic hypotension; R26.89 Other abnormalities of gait and mobility; R29.6 Repeated falls; E11.9 Type 2 diabetes mellitus without complications; G47.33 Obstructive sleep apnea (adult) (pediatric); I10 Essential (primary) hypertension; N40.0 Benign prostatic hyperplasia without lower urinary tract symptoms; K21.9 Gastro-esophageal reflux disease without esophagitis; H54.8 Legal blindness, as defined in USA; E78.2 Mixed hyperlipidemia; M19.90 Unspecified osteoarthritis, unspecified site; K44.9 Diaphragmatic hernia without obstruction or gangrene; Z79.01 Long term (current) use of anticoagulants; Z85.46 Personal history of malignant neoplasm of prostate
CPT/HCPCS: 36415; 70450; 70551; 71046; 80048; 80053; 81001; 83735; 83880; 84443; 84484; 85025; 85027; 85610; 93005; 93970; 96374; 97110; 97116; 97161; 97165; 99285; A9270; C8929; G0378; J1815; Q9957

== ENCOUNTER 2020-02-28 08:29 | Observation (INO) | payer MEDICARE, SELFPAY ==
[2020-02-28] VITALS (16 sets, daily range): BP systolic 124–140; BP diastolic 56–89; PULSE 58–107; RESP 12–18; TEMP 36.1–36.8; O2SAT 97–100; BMI 37.6; BMI 37.9
--- NOTE | ~2020-02-28 | MR_ITS ---
EXAMINATION: MR cervical spine wo/w con EXAM DATE: 02/29/2020 14:19 INDICATION: Dizziness. Lightheadedness. Gait dysfunction. TECHNIQUE: Multi-sequential, multiplanar MR images of the cervical spine were obtained without contra st. Axial T2, axial T2 MERGE sequence. Sagittal T1, T2, T2 fat saturation images also obtained. Axi al T1 weighted sequence. Patient was then injected with 20 mL Multihance intravenous contrast and re imaged. Postcontrast axial and sagittal T1-weighted fat saturation sequences were obtained. There i s no prior study for comparison. FINDINGS: There is mild to moderate disc disease C5-6, mild at the other cervical levels. The spinal cord signal intensity and intrinsic morphology is normal. Cervicomedullary junction is normal in soren earance. There are no suspicious marrow signal abnormalities. Paraspinal soft tissue is unremarkable. There are no areas of abnormal enhancement on the post contrast images. Level by level evaluation: C2-C3: Disc does not extend beyond the endplate margin. Uncovertebral joint arthropathy: Mild bilateral. Facet joint arthropathy: Mild to moderate left, mild right. Neural foraminal stenosis: No stenosis. Central canal stenosis: No stenosis. C3-C4: Small central protrusion. Uncovertebral joint arthropathy: Mild bilateral. Facet joint arthropathy: Moderate bilateral. Neural foraminal stenosis: Mild left. Central canal stenosis: Mild. C4-C5: There is a mild diffuse disc bulge. Uncovertebral joint arthropathy: Mild to moderate bilateral. Facet joint arthropathy: Moderate bilateral. Neural foraminal stenosis: Moderate left, mild to moderate right. Central canal stenosis: Mild. C5-C6: There is a mild diffuse disc bulge. Uncovertebral joint arthropathy: Mild to moderate bilateral. Facet joint arthropathy: Moderate bilateral. Neural foraminal stenosis: Moderate bilateral. Central canal stenosis: Mild. C6-C7: Disc does not extend beyond the endplate margin. Uncovertebral joint arthropathy: Mild to moderate bilateral. Facet joint arthropathy: Moderate right, mild to moderate left. Neural foraminal stenosis: Mild bilateral. Central canal stenosis: No stenosis. IMPRESSION: 1. Mild to moderate cervical spondylosis. 2. Normal cord signal. No acute findings. Reviewed, dictated and finalized at location B.
--- NOTE | ~2020-02-28 | MR_ITS ---
EXAMINATION: MR brain/brain stem wo/w con EXAM DATE: 02/29/2020 14:19 INDICATION: Lightheadedness. Dizziness. TECHNIQUE: Magnetic resonance imaging (MRI) of the brain/brain stem obtained without contrast. Sagit emily T1, axial diffusion, gradient echo (T2*), T1, T2, FLAIR sequences obtained. Patient was then inj ected with 20 cc intravenous Multihance contrast. Axial and coronal postcontrast T1 weighted sequence s obtained. Comparison is made to prior examination from 01/15/2020. FINDINGS: There are no areas of restricted diffusion to suggest acute infarction. There is no acute hemorrhage seen on the T2*, a hemosiderin sensitive sequence. No intraparenchymal brain mass lesion. There is moderate periventricular and subcortical T2/FLAIR signal hyperintensity, nonspecific but pr obably related to small vessel ischemic disease (microangiopathy). There is moderate prominence of the sulci and ventricles related to cerebral atrophy. There are no extra-axial collections. Flow v oids are seen in the cerebral arteries on the T2-weighted sequences consistent with their expected pa tency. Patient has had bilateral ocular lens surgery. Soft tissue is unremarkable. There are no ar eas of abnormal enhancement on the postcontrast images. IMPRESSION: 1. No acute intracranial findings. 2. Chronic age related findings. Reviewed, dictated and finalized at location B.
--- NOTE | ~2020-02-28 | CT_ITS ---
EXAMINATION: CT brain wo con DATE: 02/28/2020 09:03 INDICATION: Lightheadedness. Dizziness. TECHNIQUE: Computed tomography (CT) of the head was performed without intravenous contrast. Sagittal and coronal reconstructions were performed. The mA was adjusted according to patient size. Iterative reconstruction technique was employed. The dose-length product was 681.00 mGy-cm. COMPARISON: head CT dated 01/14/2020 and brain MR dated 01/15/2020 FINDINGS: No acute intracranial hemorrhage, acute infarction or mass/mass effect. There is symmetric prominence of the sulci consistent with mild age-appropriate diffuse cerebral volume loss. The ventricles are normal and symmetric. Moderate periventricular and subcortical white matter hypoattenuation consisten t with chronic small vessel ischemic disease. The orbits, paranasal sinuses and mastoid air cells ar e normal. Intracranial calcified cerebral atherosclerosis is noted. IMPRESSION: 1. No acute intracranial process. 2. Age-related changes including mild diffuse volume loss and moderate scattered white matter hypoatt enuation consistent with chronic small vessel ischemic disease. Reviewed, dictated and finalized at location A. IMPRESSION: 1. No acute intracranial process. 2. Age-related changes including mild diffuse volume loss and moderate scattere d white matter hypoattenuation consistent with chronic small vessel ischemic di sease.
--- NOTE | ~2020-02-28 | XR_ITS ---
EXAMINATION: XR chest 2V EXAM DATE: 02/28/2020 09:10 INDICATION: Lightheadedness, dizziness. TECHNIQUE: Frontal and lateral projections of the chest obtained and reviewed. Comparison is made to prior examination from 01/14/2020. FINDINGS: Moderate cardiomegaly. No confluent consolidation, pneumothorax or pleural effusion suspec trung. There are mild bony degenerative changes. There is no significant interval change. IMPRESSION: Moderate cardiomegaly Reviewed, dictated and finalized at location B. IMPRESSION: Moderate cardiomegaly
--- NOTE | 2020-02-28 08:37 | ED.DIZZY ---
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 Patient denies any diego dizziness, but states that beginning last night he notices that he is falling to the side and becomes lightheaded when he goes from a sitting to standing position. Patient denies any syncope events. He denies any chest pain, cough or shortness of breath. He denies any vertiginous symptoms, denies any sensation that the room is spinning. He denies any earache, ear pain, states in the past he has had labyrinthitis and the symptoms are much different. Patient states he was seen previously in the hospital for very similar presentation, was diagnosed with bradycardia, and taken off of his beta-tripp medication. He was prompted to follow-up with a middle school director but never did follow-up with anybody. He denies any nausea, vomiting, no decreased oral intake. No urinary symptoms. He denies any abdominal pain. Related Data Home Medications Medication Instructions Recorded Confirmed tamsulosin 0.4 mg capsule 0.4 mg PO DAILY 12/15/19 01/25/20 atorvastatin 20 mg PO DAILY 01/14/20 01/25/20 losartan 25 mg DAILY 01/14/20 01/25/20 metformin 1,000 mg PO BID 01/14/20 01/25/20 sertraline 50 mg DAILY 01/14/20 01/25/20 warfarin 8 mg PO DAILY 01/14/20 01/25/20 warfarin 9 mg PO DIRECTED 01/14/20 01/25/20 cholecalciferol (vitamin D3) 50 50 mcg PO DAILY 01/25/20 01/25/20 mcg (2,000 unit) capsule Allergies Allergy/AdvReac Type Severity Reaction Status Date / Time No Known Allergies Allergy Verified 02/28/20 08:35 Review of Systems Review of Systems: Narrative: CONSTITUTIONAL: Denies fever, chills, or sweats. ENT: Denies rhinorrhea, congestion, sore throat, or otalgia. CARDIOVASCULAR: Denies chest pain, palpitations, or edema. RESPIRATORY: Denies cough or dyspnea. GASTROINTESTINAL: Denies abdominal pain, nausea, vomiting, or diarrhea. GENITOURINARY: Denies dysuria or hematuria. SKIN: Denies rash or itching. MUSCULOSKELETAL: Denies back pain, joint pain, or myalgia. NEUROLOGIC: Denies headache, numbness, patient states that his lower legs feel slightly weak PMFSH Past Medical History Medical History Atrial fibrillation Balance problem Benign prostatic hyperplasia Bradycardia Current use of correction anticoagulation On warfarin for stroke prophylaxis due to atrial fibrillation. Depression Essential hypertension Gastroesophageal reflux disease Hearing loss Hiatal hernia Legal blindness Secondary to macular degeneration. Mixed hyperlipidemia Obstructive sleep apnea on CPAP Orthostatic hypotension Osteoarthritis Personal history of malignant neoplasm of bladder Recurrent falls Type 2 diabetes mellitus Hemoglobin A1c was 7.1% in November 2019. Unsteady gait Weakness Surgical History Surgical History History of appendectomy History of tonsillectomy Social History Social History Social History: Surrogate decision maker: Celina Ruiz, spouse. Code status: Full code. Smoking status: Never smoker Alcohol intake: never Substance use: never Additional living arrangements comments: Resides in [place], [place] with his . They have 2 grown daughters. 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 Previously enjoyed flying single engine airplanes. Gender identity (if verbalized by the patient): Male Spiritual care concerns: No Exam
--- NOTE | 2020-02-28 08:45 | ECG_ITS ---
Measurements Intervals [place] Rate: 47 P: MA: 0 QRS: 237 QRSD: 93 T: -33 QT: 430 QTc: 383 Interpretive Statements ATRIAL FIBRILLATION LOW QRS VOLTAGE- PRECORDIAL LEADS BORDERLINE R WAVE PROGRESSION, ANTERIOR LEADS INFERIOR INFARCT, AGE INDETERMINATE BASELINE WANDER- V1 ABNORMAL ECG Electronically Signed On 02-28-2020 10:36:29 CDT by Devon Jarvis D.O.
[2020-02-28 09:01] LABS: Basophils Absolute Auto 0.1 K/mm3 (0.0-0.1); Basophils Percent Auto 1.8 % (0.2-1.2); Eosinophils Absolute Auto 0.1 K/mm3 (0-0.3); Eosinophils Percent Auto 2.1 % (0-4.4); Hematocrit 40.9 % (42.0-52.0); Hemoglobin 13.8 g/dL (14.0-18.0); Immature Granulocyte Absolute 0.01 K/mm3 (0.00-0.031); Immature Granulocyte Percent A 0.2 % (0-0.5); Lymphocytes Absolute Auto 1.64 K/mm3 (0.9-3.2); Lymphocytes Percent Auto 28.9 % (18.3-44.2); Mean Corpuscular HGB Conc 33.7 g/dl (32-36); Mean Corpuscular Hemoglobin 32.7 pg (26-34); Mean Corpuscular Volume 96.9 fl (80-100); Mean Platelet Volume 9.5 fl (7.4-10.4); Monocytes Absolute Auto 0.7 K/mm3 (0.1-0.6); Monocytes Percent Auto 12.5 % (2.6-8.5); Neutrophils Absolute Auto 3.1 K/mm3 (1.3-6.7); Neutrophils Percent Auto 54.5 % (45.5-73.1); Platelet Count Result 240 k/mm3 (150-375); Red Blood Count 4.22 M/mm3 (4.6-6.20); Red Cell Distribution Width 12.5 % (11.5-14.5); White Blood Count 5.7 K/mm3 (4.5-10.0)
[2020-02-28 09:10] LABS: INR 2.6; Prothrombin Time 27.1 Seconds (11.1-14.7)
[2020-02-28 09:11] LABS: Partial Thromboplastin Time 42.3 SECONDS (22.3-36.8)
[2020-02-28 09:12] LABS: Anion Gap 8 mmol/L (8-16); Blood Urea Nitrogen 17 mg/dL (9-20); Calcium 9.1 mg/dL (8.4-10.2); Carbon Dioxide 30 mmol/L (22-30); Chloride 97 mmol/L (98-107); Estimated CRCL calculation 62 ml/min; Estimated Glomerular Filt Rate > 60; Glucose 168 mg/dL (75-110); Potassium 4.4 mmol/L (3.4-5.0); Sodium 135 mmol/L (137-145)
[2020-02-28] MEDS: MECLIZINE HCL 25 MG TABLET PO (09:16)
[2020-02-28] MEDS: SODIUM CHLORIDE 0.9% IV 1,000 ML 999 ML IV CONT (09:16)
[2020-02-28 09:24] LABS: Troponin I < 0.012 ng/mL (0.000-0.034)
[2020-02-28 12:05] LABS: Add Urine Microscopic? NO; Appearance Urine Clear (Clear); Bacteria Urine Trace /hpf; Bilirubin Urine Negative (Negative); Blood Urine Negative (Negative); Color Urine Yellow (Yellow); Glucose Urine UA Negative (Negative); Ketones Urine Negative (Negative); Leukocyte Esterase Ur Negative LEU/UL (Negative); Nitrate Urine Negative (Negative); Protein Urine Negative (Negative); RBC Urine 0-2 /hpf (0-2); Specific Grav Ur 1.013 (1.001-1.035); Urobilinogen Urine Negative mg/dL (<2.0); WBC Urine 0-3 /hpf
--- NOTE | 2020-02-28 14:00 | PCOTNOTE ---
OT evaluation attempted. Patient not yet admitted to floor. Will complete OT evaluation at later time.
--- NOTE | 2020-02-28 15:44 | PC.NURSE ---
This patient, Neri Ruiz, was admitted to [facility] Surg Room 305-02. Patient/family oriented to hospital policies and general routines including ID bracelet, bed and alarms, visiting hours, pain management, procedures, bathroom and other care routines, personal items, smoking policy, room service/diet, and visiting hours. Valuables list has been completed. Information on how to activate the Rapid Response Team has been discussed. Patient/Family are encouraged to report perceived risks to care and to ask questions if they do not understand what they are told or what they should do.
--- NOTE | 2020-02-28 19:00 | PM.IMHP ---
H&P: HPI History of Present Illness Date/Time: 02/28/20 19:00 Chief complaint: Dizziness. 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 The patient is known to myself as I admitted him to the hospital on 01/14/2020 which she attributed to balance issues. And at times he was bradycardic with rates into the 30s with some short pauses for which she was evaluated by cardiology. His oral metoprolol was discontinued and he was feeling much better on day of discharge, ambulating with physical therapy, was able to be discharged home on 01/17/2020. ?I thought we had it whipped? by discontinuing the beta-tripp however he had another episode overnight where he got out of bed to use the restroom and reports that his balance was so bad that it caused him to fall forward into his dresser. Had the dresser not been there he thinks he probably would have just fallen to the ground. It is difficult for him to describe this dizziness, and it sounds less like lightheadedness and more so like vertigo however he denies spinning sensations and simply says ?my balance is off.? He is a diabetic but denies symptoms of neuropathy. As mentioned he is legally blind however he has some vision in his left eye, and he does not think his balance issues are related to his vision as his vision problems have been stable and ongoing and the balance problems are more recent. He denies episodes of hypoglycemia however and only sounds like he checks his glucose maybe 1 time a week. Aside from discontinuing the metoprolol he has had no change in medications recently. He denies fever, chills, and sweats. No headache or neck ache. He denies focal weakness (his legs have been weak for quite some time and this is unchanged) and paresthesias. No chest pain or shortness of breath. He has been eating and drinking as per usual. No nausea, vomiting, or diarrhea. Review of Systems Review of Systems: Narrative: Twelve systems were reviewed with pertinent positives and negatives as per HPI. No fever, chills, or sweats. No recent cold or flu symptoms. He denies cough and shortness of breath. He is compliant with his CPAP. He takes milk of magnesia every day in order to have a bowel movement. He denies gastroparesis. No difficulties urinating. Except as documented, all other systems were reviewed and are negative. [facility] Past Medical History Medical History (Updated 02/28/20 @ 21:02 by Lilliam Rice PA-C) Benign prostatic hyperplasia Bradycardia (~12/2019) At which time his metoprolol was discontinued. Current use of buttermaker anticoagulation On warfarin for stroke prophylaxis due to atrial fibrillation. Depression Essential hypertension Gastroesophageal reflux disease Hearing loss Hiatal hernia Legal blindness Secondary to macular degeneration. Mixed hyperlipidemia Obstructive sleep apnea on CPAP Osteoarthritis Paroxysmal atrial fibrillation Personal history of malignant neoplasm of bladder Type 2 diabetes mellitus Hemoglobin A1c was 7.1% in November 2019. Surgical History Surgical History History of appendectomy History of tonsillectomy Family History Family History Other Adopted Social History Social History Social History: Surrogate decision maker: Celinakim Ruiz, spouse. Code status: Full code. Smoking status: Never smoker Alcohol intake: never Substance use: never Substance use type: does not use Additional living arrangements comments: Resides in [place], [place] with his . They have 2 musa
--- NOTE | 2020-02-28 19:51 | WPDCN ---
Assessment and Plan Assessment and plan (1) Balance problem: Code(s): R26.89 - Other abnormalities of gait and mobility Status: Acute Assessment and Plan: Patient's symptom, that of loss of balance, sounds like It may be a neurologic problem, or he he may have benign positional vertigo, although he states that he does not feel vertiginous. It does not sound like it is related to bradycardia or any cardiac problems. Check for orthostatic hypotension. Continue telemetry monitoring. (2) Bilateral leg weakness: Code(s): R29.898 - Other symptoms and signs involving the musculoskeletal system Status: Acute Assessment and Plan: Patient tells me his bilateral leg weakness is a longstanding problem. (3) Bradycardia: Code(s): R00.1 - Bradycardia, unspecified Status: Acute Assessment and Plan: History of mild bradycardia, heart rate 47 on his EKG but this may be an on unelated phenomenon. Continue telemetry monitoring. (4) Paroxysmal atrial fibrillation: Code(s): I48.0 - Paroxysmal atrial fibrillation Status: Acute Assessment and Plan: History of paroxysmal AFib, now in AFib with a controlled heart rate. (5) Current use of care home anticoagulation: Code(s): Z79.01 - snf (current) use of anticoagulants Status: Acute Assessment and Plan: Anticoagulated with warfarin. INR was 2.6. Therapeutic. HPI Data of Consult Date/Time: 02/28/20 19:51 Requesting Physician: Leland Feldman MD Primary Care Provider: Muriel Ferreira MD Consult Narrative Narrative: Date of service: 02/28/2020 Neri Ruiz is a 79 year old male whom we were asked to see at the request of the hospitalist for our advice and opinion regarding his weakness, in consultation. He has a history of paroxysmal atrial fibrillation and is anticoagulated with warfarin. The patient was seen by us during his admission of 01/14/2020 when he was admitted for dizziness and found to have mild bradycardia. He was on a small dose of metoprolol which was discontinued with improvement. The patient has been doing well until very early this morning when he went to go to the bathroom he suddenly felt dizzy and could maintain his balance. He did not feel presyncopal and not even dizzy but simply he could not maintain his balance and he stumbled into the bureau. He felt like he might fall. Normally he does not need a walker or cane but this morning he needed to hold on to furniture to get through the house. He denied a feeling of vertigo. He went back to bed and awoke this morning, still feeling trouble with his balance so an ambulance was called. He is feeling fine in bed but is thinks that if he were to get up he would still feel problems with his balance. He says this is similar to the event he had in December. He has longstanding leg weakness which has not changed. He cannot walk fast. The patient sees Dr. Macario Ferreira who follows his warfarin. He has a history of hypertension and diabetes. He does not complain of any palpitations, chest pain, shortness of breath, edema, bleeding, diarrhea, or strokes. No falls or presyncope over the last few weeks. Review of Systems Constitutional: Constitutional: Reports weakness Eyes: Eyes: Reports blurry vision ( Legally blind from macular degeneration) ENT: Denies Normal hearing present Cardiovascular: Cardiovascular: Denies chest pain, Denies pedal edema, Denies lightheadedness and Denies palpitations Respiratory: Respiratory: Denies cough, Denies dyspnea and Denies dyspnea on exertion Gastrointestinal: Gastrointestinal: Denies abdominal pain, Denies melena, Denies hematochezia and Denies randal
[2020-02-28 21:34] LABS: Glucose Point of Care 143 (65-105)
[2020-02-28] MEDS: PANTOPRAZOLE 40 MG TABLET PO (22:37)
[2020-02-28] MEDS: SERTRALINE HCL 50 MG TABLET FEED TUBE (22:37)
[2020-02-28] MEDS: WARFARIN (*PBKC) 4 MG TABLET 8 MG PO (22:37)
[2020-02-28 22:38] LABS: Folic Acid 10.3 ng/mL (2.76->20)
[2020-02-29] VITALS (10 sets, daily range): BP systolic 119–153; BP diastolic 70–90; PULSE 53–99; RESP 16–18; TEMP 36.3–36.6; O2SAT 97–100
[2020-02-29 06:30] LABS: Hematocrit 39.7 % (42.0-52.0); Hemoglobin 13.4 g/dL (14.0-18.0); Mean Corpuscular HGB Conc 33.8 g/dl (32-36); Mean Corpuscular Hemoglobin 31.8 pg (26-34); Mean Corpuscular Volume 94.3 fl (80-100); Mean Platelet Volume 9.4 fl (7.4-10.4); Platelet Count Result 228 k/mm3 (150-375); Red Blood Count 4.21 M/mm3 (4.6-6.20); Red Cell Distribution Width 12.3 % (11.5-14.5); White Blood Count 5.8 K/mm3 (4.5-10.0)
[2020-02-29 06:37] LABS: Anion Gap 6 mmol/L (8-16); Blood Urea Nitrogen 14 mg/dL (9-20); Calcium 8.7 mg/dL (8.4-10.2); Carbon Dioxide 27 mmol/L (22-30); Chloride 103 mmol/L (98-107); Estimated CRCL calculation 90 ml/min; Estimated Glomerular Filt Rate > 60; Glucose 150 mg/dL (75-110); Magnesium 2.5 mg/dL (1.6-2.3); Potassium 4.1 mmol/L (3.4-5.0); Sodium 136 mmol/L (137-145)
[2020-02-29 06:45] LABS: INR 2.4
[2020-02-29] MEDS: LOSARTAN POTASSIUM 25 MG TABLET PO (08:40)
[2020-02-29] MEDS: PANTOPRAZOLE 40 MG TABLET PO (08:40)
[2020-02-29] MEDS: glipiZIDE XL 5 MG TABCR PO (08:40)
[2020-02-29] MEDS: ATORVASTATIN 20 MG TABLET PO (08:40)
[2020-02-29] MEDS: CHOLECALCIFEROL 1,000 UNITS TABLET 2000 UNITS PO (08:40)
[2020-02-29] MEDS: metFORMIN HCL XR 500 MG TAB.SR.24H 1000 MG PO (08:40)
[2020-02-29] MEDS: SPIRONOLACTONE 25 MG TABLET PO (08:40)
[2020-02-29 09:19] LABS: Glucose Point of Care 147 (65-105)
[2020-02-29] MEDS: ASPIRIN 81 MG CHEWABLE TABLET PO (09:43)
[2020-02-29] MEDS: MECLIZINE HCL 12.5 MG TABLET PO ×2 (09:43→12:56)
--- NOTE | 2020-02-29 11:35 | PM.PNCARD ---
Progress Note: A&P Assessment and Plan (1) Balance problem: Code(s): R26.89 - Other abnormalities of gait and mobility Status: Acute Assessment and Plan: His symptom, that of loss of balance, may be a neurologic problem or he he may have benign positional vertigo, although he states that he does not feel vertiginous. It does not sound like it is related to bradycardia or any cardiac problems. No significant bradycardia noted on telemetry today. No pauses. Appropriate heart rate response to activity. Is orthostatic this morning. 34 mm drop between lying and sitting. No symptoms. Walked with physical therapy without symptoms (2) Bilateral leg weakness: Code(s): R29.898 - Other symptoms and signs involving the musculoskeletal system Status: Acute Assessment and Plan: Bilateral leg weakness is a longstanding problem. (3) Bradycardia: Onset Date: ~12/2019 Code(s): R00.1 - Bradycardia, unspecified Status: Acute Assessment and Plan: Tele as above (4) Paroxysmal atrial fibrillation: Code(s): I48.0 - Paroxysmal atrial fibrillation Status: Acute Assessment and Plan: History of paroxysmal AFib, now in AFib with a controlled heart rate. (5) Current use of intermediate accountant anticoagulation: Code(s): Z79.01 - FDC (current) use of anticoagulants Status: Acute Assessment and Plan: Anticoagulated with warfarin. INR was 2.4 02/29/2020. Therapeutic. Additional Plan No further cardiac recommendations. OK to discharge from cardiac standpoint. Follow-up with Primary Care Provider Plan discussed Dr Oliva Manohar 02/29/2020 Subjective Date/time seen: 02/29/20 11:35 Interval history: Follow-up for: Balance, lower extremity weakness, bradycardia, paroxysmal now persistent atrial fibrillation, long-term use anticoagulation with warfarin Date of service: 02/29/2020 Subjective: no complaints of dizziness or lightheadedness today. No chest discomfort or shortness of breath. Did not feel unbalanced when he walked with therapy today. Review of Systems Constitutional: Constitutional: Reports weakness ( Improved) Eyes: Eyes: Reports blurry vision ( Legally blind from macular degeneration) ENT: Reports vertigo ( problems with balance) and Reports hearing loss Cardiovascular: Cardiovascular: Denies chest pain, Denies pedal edema, Denies lightheadedness, Denies palpitations, Denies dyspnea and Denies dyspnea on exertion Respiratory: Respiratory: Denies cough, Denies dyspnea and Denies dyspnea on exertion Gastrointestinal: Gastrointestinal: Denies abdominal pain, Denies melena, Denies hematochezia and Denies diarrhea Genitourinary: Genitourinary: Denies dysuria Musculoskeletal: Musculoskeletal: Reports arthralgias Integumentary/Breasts: Skin/Breast: Denies rash Neurologic: Denies behavioral changes, Reports vertigo ( problems with balance), Denies dizziness, Denies syncope and Reports weakness Psychiatric: Psychiatric: Denies anxiety and Denies behavioral changes Endocrine: Endocrine: Denies flushing and Denies palpitations Hematologic/Lymphatic: Hematologic/Lymphatic: Denies easy bleeding and Denies easy bruising Allergic/Immunologic: Allergic/Immunologic: Denies lip swelling, Denies throat swelling and Denies tongue swelling Exam Narrative: Exam Narrative: Observed walking and almanza with therapy. Appropriate heart rate response to activity. Const: General: comfortable and no acute distress HENMT: Mouth: Yes moist mucous membranes Eyes: EOM: EOMs intact bilaterally Neck: Neck: supple Resp: Effort & Inspection: normal respiratory effort Auscultation: clear to auscultation bilaterally Cardio: Rate: re
--- NOTE | 2020-02-29 11:44 | WPDNEUROPN ---
Progress Note: A&P Assessment and Plan (1) Balance problem: Code(s): R26.89 - Other abnormalities of gait and mobility Status: Acute (2) Paroxysmal atrial fibrillation: Code(s): I48.0 - Paroxysmal atrial fibrillation Status: Acute (3) Dizziness on standing: Code(s): R42 - Dizziness and giddiness Status: Acute (4) Bilateral leg weakness: Code(s): R29.898 - Other symptoms and signs involving the musculoskeletal system Status: Acute (5) Atrial fibrillation: Qualifiers: Atrial fibrillation type: unspecified chronic Qualified Code(s): I48.20 - Chronic atrial fibrillation, unspecified Code(s): I48.91 - Unspecified atrial fibrillation Status: Acute (6) Diabetic polyneuropathy associated with type 2 diabetes mellitus: Code(s): E11.42 - Type 2 diabetes mellitus with diabetic polyneuropathy Status: Acute (7) Legal blindness, as defined in [place]: Code(s): H54.8 - Legal blindness, as defined in [place] Status: Acute Additional Plan in addition to the history of the atrial fibrillation in the history of adjustment of the medication and continual complaint of gait dysfunction with dizziness most likely his symptomatology is related to autonomic diabetic neuropathy with gait dysfunction otherwise will need the continuation of the medication as such and possibly rehab and orthostatic monitoring definitely show the significant drop on the orthostatic then we might start Florinef or midodrine Review of Systems Review of Systems: All systems reviewed & are unremarkable except as noted in HPI and below Exam Narrative: Exam Narrative: examination today revealed him to be awake alert cooperative in no obvious acute distress ear nose throat examination normal with moist mucous membrane no rhinorrhea extraocular movements are full neck is supple with no restricted range of motion no JVD heart is regular lungs clear with no rhonchi no crepitation abdomen is soft with no organomegaly neurologically he is awake alert follows instructions fairly wel extraocular movements are full facial sensation intact face symmetrical tongue midline uvula midline motor examination revealed him to have decreased strength with sluggish reflexes and downgoing plantar responses in addition he has subtle decreased sensation distallyl Objective Data Vital Signs Vital Signs: Vital Signs - 24 hr 02/28/20 12:59 02/28/20 15:01 02/28/20 15:30 Temperature 36.1 C L Pulse Rate 67 58 L 58 L Respiratory Rate 14 18 18 Blood Pressure 136/89 133/56 L Pulse Oximetry 99 100 100 02/28/20 20:00 02/28/20 22:00 02/28/20 22:24 Temperature 36.8 C Pulse Rate 74 107 H Respiratory Rate 18 16 Blood Pressure 124/60 Pulse Oximetry 97 02/29/20 00:00 02/29/20 04:00 02/29/20 04:40 Temperature Pulse Rate 53 L 71 Respiratory Rate 18 Blood Pressure Pulse Oximetry 02/29/20 06:00 02/29/20 08:00 02/29/20 11:26 Temperature 36.6 C 36.3 C L Pulse Rate 82 63 65 Respiratory Rate 16 18 Blood Pressure 144/70 H 153/84 H Pulse Oximetry 99 100 02/29/20 11:27 Temperature Pulse Rate 88 Respiratory Rate 18 Blood Pressure 124/90 Pulse Oximetry 99 Intake/Output Intake/Output: Intake & Output 02/26/20 02/27/20 02/28/20 02/29/20 23:59 23:59 23:59 23:59 Intake Total 1490 440 Output Total 700 Balance 1490 -260 Meds/Results Medications: Active Medications Generic Name Dose Route Start Last Admin Trade Name Freq PRN Reason Stop Dose Admin Aspirin 81 mg 02/29/20 08:00 02/29/20 09:43 Aspirin Chewable PO 81 mg DAILY@0800 RENU Administration Atorvastatin Calcium 20 mg 02/29/20 09:00 02/29/20 08:40 Lipitor PO 20 mg DAILY RENU Administration Dextrose 12.5 gm 02/28/20 21:10 Dextrose 50% Syringe IV PUSH PRN PRN Hypoglycemia Protocol Glipizide 5 mg 02/29/20 08:00 02/29/20 08:40 Glucotrol Xl PO 5 mg
--- NOTE | 2020-02-29 11:50 | PCOTNOTE ---
Attempted OT evaluation, but unable to complete as patient with cardiology. Will attempt again later.
--- NOTE | 2020-02-29 14:05 | PCOTNOTE ---
Attempted OT evaluation, but unable to complete as patient gone for a MRI. Will attempt again at another time.
--- NOTE | 2020-02-29 16:09 | PM.DS ---
DS: Admitting Diagnosis Admitting Diagnosis Admitting Diagnosis: Dizziness. DS: Discharge Diagnosis Discharge Diagnosis (1) Balance problem: Code(s): R26.89 - Other abnormalities of gait and mobility Status: Acute Assessment and Plan: Discharge Summary (Date of service 02/29/20): Mr. Ruiz is a 79 y.o. male with PMH significant for T2DM, HTN, paroxysmal atrial fibrillation on warfarin, RACHAEL, HLD, legal blindness, BPH who presented to the emergency department for the evaluation of dizziness, lightheadedness, and difficulty with balance. He reported similar symptoms during his hospitalization 12/2019 which were attributed to bradycardia. Metoprolol was discontinued which seemed to help for awhile, however symptoms returned prompting this admission. He reported that he fell forward into his dresser. He did not have any loss of consciousness, focal weakness, speech change, or vision change. He is legally blind. Initial workup in the emergency department included CT brain which demonstrated age-related change with no evidence of acute infarction, mass, hemorrhage. He was admitted and cardiology and neurology were consulted. MRI was performed as well with no acute infarct, mass, hemorrhage. He was monitored on telemetry which demonstrated rate-controlled atrial fibrillation without significant bradycardia, pause, or other arrhythmia. He was orthostatic but remained asymptomatic during these episodes. He was advised to wear TIMMY hose during the day.He worked with PT/OT and remained asymptomatic. Cardiology recommended no further medication adjustments. They did not recommend starting midodrine or fludrocortisone at this time sine he is asymptomatic. This may be considered in the future should further symptoms develop. He may have a component of autonomic dysfunction as well. His blindness likely also contributes to his balance issues. I spent extensive time speaking with the patient and his regarding the importance of rising slowly with position change and practicing fall precautions. They verbalized understanding. Outpatient PT/OT were ordered to help with his balance. He felt much better and requested to go home. He was discharged in stable condition on the afternoon of 02/29/20. (2) Paroxysmal atrial fibrillation: Code(s): I48.0 - Paroxysmal atrial fibrillation Status: Chronic (3) Current use of long-term anticoagulation: Code(s): Z79.01 - intermediate (current) use of anticoagulants Status: Chronic (4) Obstructive sleep apnea on CPAP: Code(s): G47.33 - Obstructive sleep apnea (adult) (pediatric); Z99.89 - Dependence on other enabling machines and devices Status: Chronic (5) Type 2 diabetes mellitus: Qualifiers: Diabetes mellitus complication status: without complication Diabetes mellitus long-term insulin use: without termite treater helper use Qualified Code(s): E11.9 - Type 2 diabetes mellitus without complications Code(s): E11.9 - Type 2 diabetes mellitus without complications Status: Chronic (6) Essential hypertension: Code(s): I10 - Essential (primary) hypertension Status: Chronic DS: Summary Hospital Course Reason for hospitalization: Dizziness Hospital Course: As above. Status at Discharge Functional status at discharge: uses cane/walker Overall status at discharge: patient is back to baseline Time Spent with Patient Time attestation: Total time spent providing and/or coordinating discharge services: 40 minutes Exam Narrative: Exam Narrative: Vitals at presentation: Pulse Resp BP Pulse Ox 72 18 140/84 100 02/28/20 08:30 02/28/20 08:30 02/28/20 08:30 02/28/20 08:30 Vitals at discharge: Temp Pulse Resp BP Pulse Ox 97.3 F L 77 18 140/7
[2020-02-29 16:20] LABS: Hemoglobin A1C 6.8 % (<5.7)
[2020-02-29 16:53] LABS: Glucose Point of Care 156 (65-105)
== END 2020-02-29 16:50 | disposition home health service (06) ==
LOC: ANHED 12:37 → ANH3MEDSUR 13:48
PROVIDERS: Physician Assistant; Admitting Provider Internal Medicine; Emergency Provider Emergency Medicine; PCP Family Medicine; Visit Provider Family Medicine
DX: R42 Dizziness and giddiness (principal); R26.89 Other abnormalities of gait and mobility; G47.33 Obstructive sleep apnea (adult) (pediatric); H54.7 Unspecified visual loss; H35.30 Unspecified macular degeneration; E11.9 Type 2 diabetes mellitus without complications; I10 Essential (primary) hypertension; I48.0 Paroxysmal atrial fibrillation; N40.0 Benign prostatic hyperplasia without lower urinary tract symptoms; R00.1 Bradycardia, unspecified; Z79.01 Long term (current) use of anticoagulants; Z99.89 Dependence on other enabling machines and devices; Z23 Encounter for immunization
CPT/HCPCS: 36415; 70450; 70553; 71046; 72156; 80048; 81003; 82607; 82746; 83036; 83735; 84484; 85025; 85027; 85610; 85730; 90471; 90653; 93005; 94660; 96360; 97110; 97116; 97161; 97165; 99285; A9270; A9577; G0008; G0378; J7030

== ENCOUNTER 2022-01-13 05:59 | Inpatient (IN) | payer MEDICARE, SELFPAY ==
[2022-01-13] VITALS (12 sets, daily range): BP systolic 92–141; BP diastolic 57–76; PULSE 74–99; RESP 11–22; TEMP 36.2–38.4; O2SAT 90–100; BMI 34.2
--- NOTE | ~2022-01-13 | CT_ITS ---
EXAMINATION: CT cervical spine wo con DATE: 01/13/2022 09:04 INDICATION: Fall with head injury and increased weakness TECHNIQUE: Computed tomography (CT) of the cervical spine was performed without intravenous contrast. Automated exposure control and iterative reconstruction technique were employed. The dose-length pro duct was 522.27 mGy-cm. COMPARISON: Cervical spine MR dated 03/10/2020 FINDINGS: Alignment is normal. Vertebral body heights are normal. No fracture. Severe osteoarthritis at the flaco antoaxial articulation. Moderate disc height loss at C5-C6 and at C7-T1 and T1-T2. Mild disc height l oss at the remaining cervical levels. Consider disc bulges resulting in mild central canal stenosis a t C3-C4 through C5-C6. Multilevel bilateral moderate to severe cervical and upper thoracic facet oste oarthritis. Mild to moderate neural foraminal stenosis bilaterally at C4-C5 and C5-C6 with mild neura l foraminal stenosis at a few additional levels in the cervical and upper thoracic spine. Small amoun t of atherosclerotic calcification at the bilateral carotid bulbs. There is heterotopic ossification along the nuchal ligament. The upper thoracic esophagus is patulous. Visualized portion of the apices of lungs are clear. IMPRESSION: 1. Mild to moderate cervical spondylosis. No acute osseous abnormality. Reviewed, dictated and finalized at location A.
--- NOTE | ~2022-01-13 | XR_ITS ---
EXAMINATION: XR chest 2V DATE: 01/13/2022 07:11 INDICATION: Weakness. TECHNIQUE: Frontal and lateral views of the chest were obtained. COMPARISON: Chest 2 views 02/28/2020, CT abdomen and pelvis 05/26/2018 FINDINGS: A calcified right lung nodule is consistent with old granulomatous disease. There are airsp dustin opacities in the lower lung zones. No pleural effusion or pneumothorax. Cardiomegaly is noted. Th ere is a large hiatal hernia. There are prominent paracardial fat pads. IMPRESSION: 1. Airspace opacities in the lower lung zones, consistent with atelectasis/scarring versus pneumonia. 2. Cardiomegaly. 3. Large hiatal hernia. Reviewed, dictated and finalized at location A. IMPRESSION: 1. Airspace opacities in the lower lung zones, consistent with atelectasis/scar ring versus pneumonia. 2. Cardiomegaly. 3. Large hiatal hernia.
--- NOTE | ~2022-01-13 | XR_ITS ---
EXAMINATION: XR chest 1V portable Exam Date/Time: 01/14/2022 18:02 CDT HISTORY: fevers Comparison: 01/13/2022 7:08 AM. RESULT: Lines, tubes, and devices: An external electronic device projects over the right lower chest. Lungs and pleura: Slightly improved aeration of the right lung base. Persistent left basal opacities . Cardiomediastinal silhouette: Stable. Cardiomegaly. Large hiatal hernia. Other: No acute osseous or upper abdominal finding. IMPRESSION: Persistent atelectasis/consolidation in the left lower lung. Reviewed, dictated and finalized at location K.
--- NOTE | ~2022-01-13 | CT_ITS ---
EXAMINATION: CT brain wo con DATE: 01/13/2022 07:36 INDICATION: Head injury. TECHNIQUE: Computed tomography (CT) of the head was performed without intravenous contrast. The mA wa s adjusted according to patient size. Iterative reconstruction technique was employed. The dose-lengt h product was 681.00 mGy-cm. COMPARISON: Head CT 02/28/2020, brain MRI 02/29/2020 FINDINGS: There are scattered areas of low attenuation in the cerebral white matter. There is no intr acranial hemorrhage, acute infarction, or abnormal intracranial mass lesion. The ventricles are deborah l in size. There are likely changes of ocular lens replacement surgeries. There is mild mucosal thick ening in the paranasal sinuses. The mastoid air cells are normal. IMPRESSION: 1. Stable moderate nonspecific cerebral white matter disease, which likely represents chronic small v essel ischemic disease. Reviewed, dictated and finalized at location A. IMPRESSION: 1. Stable moderate nonspecific cerebral white matter disease, which likely repr esents chronic small vessel ischemic disease.
--- NOTE | 2022-01-13 06:14 | ECG_ITS ---
Measurements Intervals [place] Rate: 82 P: [place]: 0 QRS: -23 QRSD: 89 T: 17 QT: 379 QTc: 445 Interpretive Statements ATRIAL FIBRILLATION LOW QRS VOLTAGE IN PRECORDIAL LEADS CANNOT RULE OUT INFERIOR INFARCTION, AGE INDETERMINATE ABNORMAL ECG COMPARED TO ECG 02/28/2020 08:41:37 NO SIGNIFICANT CHANGES Electronically Signed On 01-13-2022 16:18:49 CDT by Arden Buckner M.D.
[2022-01-13 06:57] LABS: Basophils Absolute Auto 0.1 K/mm3 (0.0-0.1); Basophils Percent Auto 0.9 % (0.2-1.2); Eosinophils Percent Auto 0.1 % (0-4.4); Hematocrit 40.3 % (42.0-52.0); Hemoglobin 13.6 g/dL (14.0-18.0); Immature Granulocyte Absolute 0.03 K/mm3 (0.00-0.031); Immature Granulocyte Percent A 0.3 % (0-0.5); Lymphocytes Absolute Auto 0.58 K/mm3 (0.9-3.2); Lymphocytes Percent Auto 5.6 % (18.3-44.2); Mean Corpuscular HGB Conc 33.7 g/dl (32-36); Mean Corpuscular Hemoglobin 32.4 pg (26-34); Mean Platelet Volume 9.1 fl (7.4-10.4); Monocytes Absolute Auto 1.1 K/mm3 (0.1-0.6); Monocytes Percent Auto 10.3 % (2.6-8.5); Neutrophils Absolute Auto 8.6 K/mm3 (1.3-6.7); Neutrophils Percent Auto 82.8 % (45.5-73.1); Platelet Count Result 229 k/mm3 (150-375); Red Cell Distribution Width 13.2 % (11.5-14.5); White Blood Count 10.4 K/mm3 (4.5-10.0)
[2022-01-13 07:08] LABS: Appearance Urine Clear (Clear); Bilirubin Urine Negative (Negative); Color Urine Yellow (Yellow); Glucose Urine UA Trace mg/dL (Negative); Ketones Urine Negative (Negative); Leukocyte Esterase Ur 1+ LEU/UL (Negative); Nitrate Urine Negative (Negative); Protein Urine 1+ mg/dL (Negative); Urobilinogen Urine 0.2 mg/dL (<2.0); pH Urine 7.5 (5.0-9.0)
[2022-01-13 07:15] LABS: Mucus Urine Rare /lpf; Squamous Epithelial Cell Urine Rare /hpf (Few); WBC Clumps Urine Present /HPF; WBC Urine 31-50 /hpf
--- NOTE | 2022-01-13 07:18 | PC.NURSE ---
Report given to CLIFFORD JENSEN
[2022-01-13 07:21] LABS: Add Urine Microscopic? YES; Blood Urine Trace-Intact (Negative)
--- NOTE | 2022-01-13 07:22 | ED.GENADULT ---
HPI - General Adult General Chief complaint: Weakness Stated complaint: multiple falls increased weakness Time Seen by Provider: 01/13/22 06:59 Source: RN notes reviewed History of Present Illness HPI narrative: Patient presents emergency room from home for weakness. Patient states he has been feeling more weak over the past several days with several falls he states that he walks with a walker and this morning he was walking and felt like his legs just gave out and he fell landing on his buttocks he denies striking his head or any loss of consciousness does note that he is on blood thinners denies any neck or back pain. Patient states he is just been feeling generally more weak during this time he denies any fevers or chills chest pain shortness of breath abdominal pain nausea vomiting Related Data Home Medications Medication Instructions Recorded Confirmed tamsulosin 0.4 mg capsule 0.4 mg PO HS 12/15/19 06/13/21 cholecalciferol (vitamin D3) 50 50 mcg PO DAILY 01/25/20 06/13/21 mcg (2,000 unit) capsule magnesium hydroxide 400 mg/5 mL 5 ml PO DAILY PRN 11/21/21 oral suspension (Milk of Magnesia) melatonin 10 mg capsule 10 mg PO QHS 11/21/21 Allergies Allergy/AdvReac Type Severity Reaction Status Date / Time No Known Allergies Allergy Verified 01/13/22 06:09 Review of Systems Review of Systems: Gen.: Denies fevers or chills Eyes: Denies eye pain or visual change ENT: Denies congestion Respiratory: Denies shortness of breath or cough CV: Denies chest pain or palpitations GI: Denies abdominal pain nausea, emesis or diarrhea Musculoskeletal: Denies back pain or muscle pain Neuro: Reports weakness Skin: Denies rash Except as documented, all other systems reviewed and negative FOR[facility]LY [facility] Past Medical History Medical History Benign prostatic hyperplasia Bradycardia (~12/2019) At which time his metoprolol was discontinued. Current use of mcfp anticoagulation On warfarin for stroke prophylaxis due to atrial fibrillation. 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 Mixed hyperlipidemia Obstructive sleep apnea on CPAP Osteoarthritis Paroxysmal atrial fibrillation Personal history of malignant neoplasm of bladder Surgical History Surgical History History of appendectomy History of tonsillectomy Family History Family History Other Adopted Social History Social History Social History: Surrogate decision maker: Celina Ruiz, spouse. Code status: Full code. Alcohol intake: never Substance use: never Substance use type: does not use Additional living arrangements comments: Resides in [place], [place] with his . They have 2 grown daughters. 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 Previously enjoyed flying single engine airplanes. Gender identity (if verbalized by the patient): Male Spiritual care concerns: No Exam Narrative: APPEARANCE: No acute distress, nontoxic, resting in bed EYES: EOMI, PERRL HEENT: Normocephalic, atraumatic, OMM RESPIRATORY: No respiratory distress Clear to auscultation bilaterally with no rhonchi wheezing or rales. CARDIOVASCULAR: Regular rate and rhythm without murmurs rubs or gallops. ABDOMINAL: Soft, nontender, nondistended, no rebound or guarding MUSCULOSKELETAl: Moves all extremities. No clubbing, cyanosis or edema. NEURO: Awake and alert x 4. Following commands, speech normal, no focal deficits SKIN:: Warm, dry. No rashes lesions or abrasions PSYCHIATRIC: Normal affect/mood, Course Course Emergency Course: Discussed with Dr. Sterling presentation work-up agrees wi
[2022-01-13 07:26] LABS: Alanine Aminotransferase 28 U/L (6-50); Albumin Level 4.4 g/dL (3.5-5.1); Alkaline Phosphatase 95 U/L (38-126); Anion Gap 13 mmol/L (8-16); Aspartate Amino Transferase 29 U/L (17-59); Bilirubin,Total 1.5 mg/dL (0.2-1.3); Blood Urea Nitrogen 13 mg/dL (9-20); Calcium 8.6 mg/dL (8.4-10.2); Carbon Dioxide 23 mmol/L (22-30); Chloride 94 mmol/L (98-107); Estimated CRCL calculation 74 ml/min; Estimated Glomerular Filt Rate > 60; Glucose 206 mg/dL (65-110); Potassium 4.4 mmol/L (3.4-5.0); Sodium 130 mmol/L (137-145)
[2022-01-13] MEDS: SODIUM CHLORIDE 0.9% IV 1,000 ML 999 ML IV CONT (07:53)
[2022-01-13 08:40] LABS: INR 2.1; Prothrombin Time 22.9 Seconds (11.1-14.7)
[2022-01-13 08:42] LABS: Lactic Acid Reflex 2.5 mmol/L (0.7-2.0)
[2022-01-13 08:52] LABS: SARS-CoV-2 RNA PCR Negative
[2022-01-13 09:13] LABS: Creatine Kinase 47 U/L (55-170); Magnesium 2.3 mg/dL (1.6-2.3)
[2022-01-13] MEDS: SODIUM CHLORIDE 0.9% IV 1,000 ML 80 ML IV CONT ×2 (09:30→21:00)
--- NOTE | 2022-01-13 10:00 | PC.NURSE ---
This patient, Neri Ruiz, was admitted to [facility] Surg Room 306-01. Patient/family oriented to hospital policies and general routines including ID bracelet, bed and alarms, visiting hours, pain management, procedures, bathroom and other care routines, personal items, smoking policy, room service/diet, and visiting hours. Information on how to activate the Rapid Response Team has been discussed. Patient/Family are encouraged to report perceived risks to care and to ask questions if they do not understand what they are told or what they should do.
[2022-01-13 11:26] LABS: Reflex Lactic Acid Yes or No Add Lactic
[2022-01-13 11:55] LABS: Lactic Acid 2.3 mmol/L (0.7-2.0)
--- NOTE | 2022-01-13 12:33 | PM.IMHP ---
H&P: HPI History of Present Illness Date/Time: 01/13/22 12:33 Chief Complaint: Fall Narrative: Date of service: 01/13/2022 Neri Marin is a legally blind 81-year-old male with a history of bladder cancer and BPH, hypertension, paroxysmal atrial fibrillation on chronic anticoagulation, type 2 diabetes mellitus, RACHAEL on CPAP who presented to the emergency department on 01/13/2022 after a fall at home. He is a fair historian but is limited as he is hard of hearing. He states he was feeling in his usual state of health when he got up yesterday to walk with his walker when his ?legs gave way and he hit the floor. He states he did not hit his head and did not lose consciousness. He estimates that he was down for 20 minutes. His was present at the time and was able to call 911. EMS assisted him off the ground. He denies any precipitating dizziness, lightheadedness, shortness of breath, or chest pain. With further questioning, he notes since yesterday he noticed burning with urination as well as urinary frequency. He was unsure regarding blood in his urine as he cannot see this. He denied fevers or chills but then states that yesterday his teeth were chattering, which is unlike him. He denied back or flank pain. No episodes of nausea, vomiting, or diarrhea. He notes no change to his appetite. He denies any recent episodes of weakness, dizziness, or lightheadedness. He typically is able to ambulate using a walker or brad-cane. Denies any other recent falls. The patient is being admitted to the hospitalist service for observation. Supervising physician for this history and physical is Dr. Patrice Sterling. Review of Systems Review of Systems: All systems reviewed & are unremarkable except as noted in HPI and below PMFSH Past Medical History Medical History (Updated 01/13/22 @ 12:55 by Nancy Jay PA-C) Benign prostatic hyperplasia Bradycardia (~12/2019) At which time his metoprolol was discontinued. Current use of intermodal dispatcher anticoagulation On warfarin for stroke prophylaxis due to atrial fibrillation. 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 Mixed hyperlipidemia Obstructive sleep apnea on CPAP Osteoarthritis Paroxysmal atrial fibrillation Personal history of malignant neoplasm of bladder Type 2 diabetes mellitus Surgical History Surgical History (Updated 01/13/22 @ 12:43 by Nancy Jay PA-C) History of appendectomy History of bladder surgery Tumor removal History of tonsillectomy Family History Family History Other Adopted Social History Social History (Updated 01/13/22 @ 12:44 by Nancy Jay PA-C) Social History: Lives at home with his to whom he has been 50 years. He is typically independent with his activities. He enjoys working in his home [employer] shop. He has 2 adult children. His primary care provider is Dr. Muriel Ferreira. He designates his , Celina Stewart as his surrogate decision maker. He would like to be a full code Smoking status: Never smoker Alcohol intake: never Substance use: never Additional living arrangements comments: Spiritual care concerns: No Meds Home Medications and Allergies Home Medications Medication Instructions Recorded Confirmed Type tamsulosin 0.4 mg capsule 0.4 mg PO DAILY 12/15/19 01/13/22 History cholecalciferol (vitamin D3) 50 50 mcg PO DAILY 01/25/20 01/13/22 History mcg (2,000 unit) capsule melatonin 10 mg capsule 10 mg PO QHS 11/21/21 01/13/22 History atorvastatin 20 mg tablet 20 mg PO DAILY 01/13/22 01/13/22 History glipizide 5 mg tablet, extended 5 mg PO DAILY 01/13/22 01/13/22 History release 24 hr losartan 25 mg tablet 25 mg PO DAILY 01/13/22 01/13/22 History metformin 500 mg tablet,extended 500 mg
[2022-01-13 13:30] LABS: Lactic Acid Reflex 2.1 mmol/L (0.7-2.0)
[2022-01-13] MEDS: CALCIUM CARBONATE (TUMS) 500 MG (200 MG ELEMENTAL) PO (15:57)
[2022-01-13 16:21] LABS: Glucose Point of Care 194 mg/dl (65-105)
[2022-01-13] MEDS: WARFARIN (*PBKC) 4 MG TABLET PO (16:56)
[2022-01-13 20:54] LABS: Glucose Point of Care 173 mg/dl (65-105)
[2022-01-13] MEDS: MELATONIN 5 MG TABLET 10 MG PO (20:58)
[2022-01-14] VITALS (7 sets, daily range): BP systolic 115–125; BP diastolic 54–62; PULSE 56–93; RESP 16–18; TEMP 36.6–38.2; O2SAT 94–98
[2022-01-14 06:43] LABS: Basophils Absolute Auto 0.1 K/mm3 (0.0-0.1); Basophils Percent Auto 0.5 % (0.2-1.2); Immature Granulocyte Absolute 0.07 K/mm3 (0.00-0.031); Immature Granulocyte Percent A 0.6 % (0-0.5); Lymphocytes Absolute Auto 1.12 K/mm3 (0.9-3.2); Mean Corpuscular HGB Conc 33.3 g/dl (32-36); Mean Corpuscular Volume 96.1 fl (80-100); Mean Platelet Volume 9.5 fl (7.4-10.4); Monocytes Absolute Auto 1.4 K/mm3 (0.1-0.6); Monocytes Percent Auto 12.6 % (2.6-8.5); Neutrophils Absolute Auto 8.5 K/mm3 (1.3-6.7); Neutrophils Percent Auto 76.3 % (45.5-73.1); Platelet Count Result 227 k/mm3 (150-375); Red Blood Count 4.06 M/mm3 (4.6-6.20); Red Cell Distribution Width 13.2 % (11.5-14.5); White Blood Count 11.2 K/mm3 (4.5-10.0)
[2022-01-14 06:50] LABS: Prothrombin Time 21.7 Seconds (11.1-14.7)
[2022-01-14 06:57] LABS: Alanine Aminotransferase 21 U/L (6-50); Albumin Level 3.8 g/dL (3.5-5.1); Alkaline Phosphatase 83 U/L (38-126); Anion Gap 8 mmol/L (8-16); Aspartate Amino Transferase 24 U/L (17-59); Bilirubin,Total 1.5 mg/dL (0.2-1.3); Blood Urea Nitrogen 12 mg/dL (9-20); Calcium 8.2 mg/dL (8.4-10.2); Carbon Dioxide 26 mmol/L (22-30); Chloride 97 mmol/L (98-107); Estimated CRCL calculation 74 ml/min; Estimated Glomerular Filt Rate > 60; Glucose 163 mg/dL (65-110); Potassium 3.8 mmol/L (3.4-5.0); Sodium 131 mmol/L (137-145)
[2022-01-14 07:17] LABS: Hemoglobin A1C 5.9 % (<5.7)
[2022-01-14 07:57] LABS: Glucose Point of Care 148 mg/dl (65-105)
[2022-01-14] MEDS: ATORVASTATIN 20 MG TABLET PO (09:52)
[2022-01-14] MEDS: PANTOPRAZOLE 40 MG TABLET PO (09:52)
[2022-01-14] MEDS: TAMSULOSIN HCL 0.4 MG CAPSULE PO (09:52)
[2022-01-14] MEDS: SERTRALINE HCL 50 MG TABLET PO (09:52)
[2022-01-14] MEDS: LOSARTAN POTASSIUM 25 MG TABLET PO (09:52)
[2022-01-14] MEDS: CHOLECALCIFEROL 1,000 UNITS TABLET 2000 UNITS PO (09:52)
[2022-01-14] MEDS: SPIRONOLACTONE 25 MG TABLET PO (09:52)
[2022-01-14 11:34] LABS: Glucose Point of Care 184 mg/dl (65-105)
--- NOTE | 2022-01-14 14:28 | P.PNIM_ITS ---
Progress Note: A&P Assessment and Plan (1) Acute UTI: Code(s): N39.0 - Urinary tract infection, site not specified Status: Acute Assessment and Plan: UA abnormal on presentation and patient endorsed dysuria * Urine culture is pending * Blood cultures pending * Continue IV ceftriaxone * Await culture results and tailor antibiotics accordingly * Patient febrile 101.1 yesterday afternoon, afebrile >24 hours. Slight increase in WBC, continue to monitor (2) Fall: Code(s): W19.XXXA - Unspecified fall, initial encounter Status: Acute Assessment and Plan: Patient fell while ambulating with his walker. Did not hit head or lose consciousness. Was down 20 minutes. * Fortunately no injuries sustained * May have been precipitated by weakness secondary to acute UTI * Head CT and cervical spine CT with no acute injuries * Implement fall precautions * Appreciate PT/OT evaluation (3) Gait instability: Code(s): R26.81 - Unsteadiness on feet Status: Acute Assessment and Plan: See above * Patient typically uses walker or brad cane for evaluation * Appreciate PT/OT * requiring more assistance with therapy. May need to consider SNF. Care coordination following (4) Paroxysmal atrial fibrillation: Code(s): I48.0 - Paroxysmal atrial fibrillation Status: Chronic Assessment and Plan: Rate is controlled. EKG on presentation demonstrates patient to be in atrial fibrillation * Does not appear to be on any medications for rate/rhythm control. Metoprolol reportedly discontinued due to issues with bradycardia * Continue warfarin (5) Current use of alf anticoagulation: Code(s): Z79.01 - assistant terminal manager (current) use of anticoagulants Status: Chronic Assessment and Plan: Maintained on warfarin for paroxysmal atrial fibrillation * INR is 2.0 * Continue warfarin 4 mg * Monitor PT/INR daily (6) Essential hypertension: Code(s): I10 - Essential (primary) hypertension Status: Chronic Assessment and Plan: Blood pressure reviewed and has been controlled. Last BP 125/59 * Continue losartan and spironolactone * Monitor BP trends (7) Obstructive sleep apnea (adult) (pediatric): Code(s): G47.33 - Obstructive sleep apnea (adult) (pediatric) Status: Acute Assessment and Plan: Continue CPAP during admission (8) Abnormal CXR: Code(s): R93.89 - Abnormal findings on diagnostic imaging of other specified body structures Status: Acute Assessment and Plan: CXR on presentation showed airspace opacities of the lower lung zones consistent with atelectasis/scarring versus pneumonia * Patient with no clinical signs/symptoms to suggest pneumonia * Continue incentive spirometry as atelectasis is most likely (9) Type 2 diabetes mellitus: Code(s): E11.9 - Type 2 diabetes mellitus without complications Status: Acute Assessment and Plan: A1c is 5.9. blood sugars have been well controlled this admission * Continue Accu-Cheks, sliding scale insulin, hypoglycemic protocol * Hold home metformin * Monitor glucose trends Subjective Date/time seen: 01/14/22 14:28 Interval history: Date of service: 01/14/2022 Neri Marin is a legally blind 81-year-old male with a history of bladder cancer and BPH, hypertension, paroxysmal atrial fibrillation on chronic anticoagulation, type 2 diabetes mellitus, RACHAEL on CPAP who is see
--- NOTE | 2022-01-14 14:28 | PM.IMPN ---
Progress Note: A&P Assessment and Plan (1) Acute UTI: Code(s): N39.0 - Urinary tract infection, site not specified Status: Acute Assessment and Plan: UA abnormal on presentation and patient endorsed dysuria Urine culture is pending Blood cultures pending Continue IV ceftriaxone Await culture results and tailor antibiotics accordingly Patient febrile 101.1 yesterday afternoon, afebrile >24 hours. Slight increase in WBC, continue to monitor (2) Fall: Code(s): W19.XXXA - Unspecified fall, initial encounter Status: Acute Assessment and Plan: Patient fell while ambulating with his walker. Did not hit head or lose consciousness. Was down 20 minutes. Fortunately no injuries sustained May have been precipitated by weakness secondary to acute UTI Head CT and cervical spine CT with no acute injuries Implement fall precautions Appreciate PT/OT evaluation (3) Gait instability: Code(s): R26.81 - Unsteadiness on feet Status: Acute Assessment and Plan: See above Patient typically uses walker or brad cane for evaluation Appreciate PT/OT requiring more assistance with therapy. May need to consider SNF. Care coordination following (4) Paroxysmal atrial fibrillation: Code(s): I48.0 - Paroxysmal atrial fibrillation Status: Chronic Assessment and Plan: Rate is controlled. EKG on presentation demonstrates patient to be in atrial fibrillation Does not appear to be on any medications for rate/rhythm control. Metoprolol reportedly discontinued due to issues with bradycardia Continue warfarin (5) Current use of fpc anticoagulation: Code(s): Z79.01 - termite treater helper (current) use of anticoagulants Status: Chronic Assessment and Plan: Maintained on warfarin for paroxysmal atrial fibrillation INR is 2.0 Continue warfarin 4 mg Monitor PT/INR daily (6) Essential hypertension: Code(s): I10 - Essential (primary) hypertension Status: Chronic Assessment and Plan: Blood pressure reviewed and has been controlled. Last BP 125/59 Continue losartan and spironolactone Monitor BP trends (7) Obstructive sleep apnea (adult) (pediatric): Code(s): G47.33 - Obstructive sleep apnea (adult) (pediatric) Status: Acute Assessment and Plan: Continue CPAP during admission (8) Abnormal CXR: Code(s): R93.89 - Abnormal findings on diagnostic imaging of other specified body structures Status: Acute Assessment and Plan: CXR on presentation showed airspace opacities of the lower lung zones consistent with atelectasis/scarring versus pneumonia Patient with no clinical signs/symptoms to suggest pneumonia Continue incentive spirometry as atelectasis is most likely (9) Type 2 diabetes mellitus: Code(s): E11.9 - Type 2 diabetes mellitus without complications Status: Acute Assessment and Plan: A1c is 5.9. blood sugars have been well controlled this admission Continue Accu-Cheks, sliding scale insulin, hypoglycemic protocol Hold home metformin Monitor glucose trends Subjective Date/time seen: 01/14/22 14:28 Interval history: Date of service: 01/14/2022 Neri Marin is a legally blind 81-year-old male with a history of bladder cancer and BPH, hypertension, paroxysmal atrial fibrillation on chronic anticoagulation, type 2 diabetes mellitus, RACHAEL on CPAP who is seen in follow-up for UTI. He feels more tired today. he participated in therapy but did not get out bed. He did leg exercises in bed and did set up at the side of the bed for few minutes. He feels very weak. He has been able to use the urinal and denies dysuria. he denies fevers or chills. States he ate a good lunch today. He slept well last night but still feels tired. Denies shortness of breath, cough, chest pain. His is present at the bedside. Review of Systems Revi
[2022-01-14 16:31] LABS: Glucose Point of Care 164 mg/dl (65-105)
[2022-01-14] MEDS: WARFARIN (*PBKC) 4 MG TABLET PO (17:36)
[2022-01-14] MEDS: ACETAMINOPHEN 325 MG TABLET 650 MG PO (18:21)
[2022-01-14] MEDS: cefTRIAXone 2 GM in SODIUM CHLORIDE 0.9% IV 100 ML 200 ML IVPB (21:37)
[2022-01-14] MEDS: MELATONIN 5 MG TABLET 10 MG PO (21:37)
[2022-01-15] VITALS (7 sets, daily range): BP systolic 116–126; BP diastolic 67–76; PULSE 65–74; RESP 16–18; TEMP 35.8–37; O2SAT 96–100
[2022-01-15 06:45] LABS: Basophils Absolute Auto 0.1 K/mm3 (0.0-0.1); Eosinophils Percent Auto 0.5 % (0-4.4); Hematocrit 39.6 % (42.0-52.0); Immature Granulocyte Absolute 0.03 K/mm3 (0.00-0.031); Immature Granulocyte Percent A 0.4 % (0-0.5); Lymphocytes Absolute Auto 1.27 K/mm3 (0.9-3.2); Lymphocytes Percent Auto 15.8 % (18.3-44.2); Mean Corpuscular HGB Conc 32.8 g/dl (32-36); Mean Corpuscular Hemoglobin 32.1 pg (26-34); Mean Corpuscular Volume 97.8 fl (80-100); Mean Platelet Volume 9.3 fl (7.4-10.4); Monocytes Absolute Auto 1.2 K/mm3 (0.1-0.6); Monocytes Percent Auto 14.6 % (2.6-8.5); Neutrophils Absolute Auto 5.5 K/mm3 (1.3-6.7); Neutrophils Percent Auto 67.7 % (45.5-73.1); Platelet Count Result 180 k/mm3 (150-375); Red Blood Count 4.05 M/mm3 (4.6-6.20); Red Cell Distribution Width 13.5 % (11.5-14.5); White Blood Count 8.1 K/mm3 (4.5-10.0)
[2022-01-15 07:02] LABS: Anion Gap 9 mmol/L (8-16); Blood Urea Nitrogen 14 mg/dL (9-20); Calcium 8.1 mg/dL (8.4-10.2); Carbon Dioxide 26 mmol/L (22-30); Chloride 96 mmol/L (98-107); Estimated CRCL calculation 83 ml/min; Estimated Glomerular Filt Rate > 60; Glucose 164 mg/dL (65-110); Potassium 3.7 mmol/L (3.4-5.0); Sodium 131 mmol/L (137-145)
[2022-01-15 07:03] LABS: Prothrombin Time 21.9 Seconds (11.1-14.7)
[2022-01-15] MEDS: CALCIUM CARBONATE (TUMS) 500 MG (200 MG ELEMENTAL) PO (08:23)
[2022-01-15] MEDS: PANTOPRAZOLE 40 MG TABLET PO (08:24)
[2022-01-15] MEDS: TAMSULOSIN HCL 0.4 MG CAPSULE PO (08:24)
[2022-01-15] MEDS: LOSARTAN POTASSIUM 25 MG TABLET PO (08:24)
[2022-01-15] MEDS: ATORVASTATIN 20 MG TABLET PO (08:24)
[2022-01-15] MEDS: CHOLECALCIFEROL 1,000 UNITS TABLET 2000 UNITS PO (08:25)
[2022-01-15] MEDS: SPIRONOLACTONE 25 MG TABLET PO (08:25)
[2022-01-15] MEDS: SERTRALINE HCL 50 MG TABLET PO (08:25)
[2022-01-15 09:11] LABS: Glucose Point of Care 173 mg/dl (65-105)
[2022-01-15 11:34] LABS: Glucose Point of Care 202 mg/dl (65-105)
[2022-01-15] MEDS: INSULIN ASPART (*BKC) 100 UNITS/ML SUB-Q (12:23)
--- NOTE | 2022-01-15 13:00 | P.PNIM_ITS ---
Progress Note: A&P Assessment and Plan (1) Acute UTI: Code(s): N39.0 - Urinary tract infection, site not specified Status: Acute Assessment and Plan: UA abnormal on presentation and patient endorsed dysuria * Urine culture is pending * Blood cultures pending * Continue IV ceftriaxone * (2) Fall: Code(s): W19.XXXA - Unspecified fall, initial encounter Status: Acute Assessment and Plan: Patient fell while ambulating with his walker. Did not hit head or lose consciousness. Was down 20 minutes. * Fortunately no injuries sustained * May have been precipitated by weakness secondary to acute UTI * Head CT and cervical spine CT with no acute injuries * Implement fall precautions * Appreciate PT/OT evaluation (3) Gait instability: Code(s): R26.81 - Unsteadiness on feet Status: Acute Assessment and Plan: See above * Patient typically uses walker or brad cane for evaluation * Appreciate PT/OT * requiring more assistance with therapy. May need to consider SNF. Care coordination following (4) Paroxysmal atrial fibrillation: Code(s): I48.0 - Paroxysmal atrial fibrillation Status: Chronic Assessment and Plan: Rate is controlled. EKG on presentation demonstrates patient to be in atrial fibrillation * Does not appear to be on any medications for rate/rhythm control. Metoprolol reportedly discontinued due to issues with bradycardia * Continue warfarin (5) Current use of retirement anticoagulation: Code(s): Z79.01 - shelter (current) use of anticoagulants Status: Chronic Assessment and Plan: Maintained on warfarin for paroxysmal atrial fibrillation * INR is 2.0 * Continue warfarin 4 mg * Monitor PT/INR daily (6) Essential hypertension: Code(s): I10 - Essential (primary) hypertension Status: Chronic Assessment and Plan: Blood pressure reviewed and has been controlled. Last BP 125/59 * Continue losartan and spironolactone * Monitor BP trends (7) Obstructive sleep apnea (adult) (pediatric): Code(s): G47.33 - Obstructive sleep apnea (adult) (pediatric) Status: Acute Assessment and Plan: Continue CPAP during admission (8) Abnormal CXR: Code(s): R93.89 - Abnormal findings on diagnostic imaging of other specified body structures Status: Acute Assessment and Plan: CXR on presentation showed airspace opacities of the lower lung zones consistent with atelectasis/scarring versus pneumonia * Patient with no clinical signs/symptoms to suggest pneumonia * Continue incentive spirometry as atelectasis is most likely (9) Type 2 diabetes mellitus: Code(s): E11.9 - Type 2 diabetes mellitus without complications Status: Acute Assessment and Plan: A1c is 5.9. blood sugars have been well controlled this admission * Continue Accu-Cheks, sliding scale insulin, hypoglycemic protocol * Hold home metformin * Monitor glucose trends Subjective Date/time seen: 01/15/22 13:00 No complaints Exam Narrative: General: well-nourished, well-appearing 81-year-old male, sitting up in bed, comfortable, NARD Neuro: slightly more drowsy in comparison to yesterday, alert and oriented x4, speech clear, no focal neuro deficits noted HEENMT: normocephalic, atraumatic, EOMI, sclerae anicteric, hard of hearing, legally blind Respiratory: clear to auscultation anteriorly, nonlabored breathing
--- NOTE | 2022-01-15 13:00 | PM.IMPN ---
Progress Note: A&P Assessment and Plan (1) Acute UTI: Code(s): N39.0 - Urinary tract infection, site not specified Status: Acute Assessment and Plan: UA abnormal on presentation and patient endorsed dysuria Urine culture is pending Blood cultures pending Continue IV ceftriaxone (2) Fall: Code(s): W19.XXXA - Unspecified fall, initial encounter Status: Acute Assessment and Plan: Patient fell while ambulating with his walker. Did not hit head or lose consciousness. Was down 20 minutes. Fortunately no injuries sustained May have been precipitated by weakness secondary to acute UTI Head CT and cervical spine CT with no acute injuries Implement fall precautions Appreciate PT/OT evaluation (3) Gait instability: Code(s): R26.81 - Unsteadiness on feet Status: Acute Assessment and Plan: See above Patient typically uses walker or brad cane for evaluation Appreciate PT/OT requiring more assistance with therapy. May need to consider SNF. Care coordination following (4) Paroxysmal atrial fibrillation: Code(s): I48.0 - Paroxysmal atrial fibrillation Status: Chronic Assessment and Plan: Rate is controlled. EKG on presentation demonstrates patient to be in atrial fibrillation Does not appear to be on any medications for rate/rhythm control. Metoprolol reportedly discontinued due to issues with bradycardia Continue warfarin (5) Current use of [facility] anticoagulation: Code(s): Z79.01 - watermelon inspector (current) use of anticoagulants Status: Chronic Assessment and Plan: Maintained on warfarin for paroxysmal atrial fibrillation INR is 2.0 Continue warfarin 4 mg Monitor PT/INR daily (6) Essential hypertension: Code(s): I10 - Essential (primary) hypertension Status: Chronic Assessment and Plan: Blood pressure reviewed and has been controlled. Last BP 125/59 Continue losartan and spironolactone Monitor BP trends (7) Obstructive sleep apnea (adult) (pediatric): Code(s): G47.33 - Obstructive sleep apnea (adult) (pediatric) Status: Acute Assessment and Plan: Continue CPAP during admission (8) Abnormal CXR: Code(s): R93.89 - Abnormal findings on diagnostic imaging of other specified body structures Status: Acute Assessment and Plan: CXR on presentation showed airspace opacities of the lower lung zones consistent with atelectasis/scarring versus pneumonia Patient with no clinical signs/symptoms to suggest pneumonia Continue incentive spirometry as atelectasis is most likely (9) Type 2 diabetes mellitus: Code(s): E11.9 - Type 2 diabetes mellitus without complications Status: Acute Assessment and Plan: A1c is 5.9. blood sugars have been well controlled this admission Continue Accu-Cheks, sliding scale insulin, hypoglycemic protocol Hold home metformin Monitor glucose trends Subjective Date/time seen: 01/15/22 13:00 No complaints Exam Narrative: General: well-nourished, well-appearing 81-year-old male, sitting up in bed, comfortable, NARD Neuro: slightly more drowsy in comparison to yesterday, alert and oriented x4, speech clear, no focal neuro deficits noted HEENMT: normocephalic, atraumatic, EOMI, sclerae anicteric, hard of hearing, legally blind Respiratory: clear to auscultation anteriorly, nonlabored breathing Cardio: regular rate, regular rhythm with S1-S2 Abdomen: nondistended, normoactive bowel sounds, soft, nontender to palpation Extremities: no edema, erythema, or tenderness to palpation, DP pulses 2+ bilaterally Skin: no rashes or lesions, warm and dry Psych: appropriate mood and affect, judgment and insight intact Objective Data Vital Signs Vital Signs: Vital Signs - 24 hr 01/14/22 13:59 01/14/22 18:21 01/14/22 22:00 Temperature 98.6 F 100.7 F H 97.8 F Pulse Rate 82 56 L Respirat
[2022-01-15 16:12] LABS: Glucose Point of Care 174 mg/dl (65-105)
[2022-01-15] MEDS: WARFARIN (*PBKC) 4 MG TABLET PO (17:57)
[2022-01-15] MEDS: cefTRIAXone 2 GM in SODIUM CHLORIDE 0.9% IV 100 ML 200 ML IVPB (20:17)
[2022-01-15] MEDS: MELATONIN 5 MG TABLET 10 MG PO (20:19)
--- NOTE | 2022-01-15 23:00 | PCRCNOTE ---
RT put home unit on patient and noticed the tubing and mask were leaking. RT found that the mask was broken at the bridge and the hose connected to pt's home unit was cracked. RT placed hospital S9 unit on patient in place of his home unit, AUTOPAP 5-15 cmh20.
[2022-01-16 02:48] VITALS: PULSE 67; RESP 24; O2SAT 98
[2022-01-16 05:47] VITALS: BP 116/62; PULSE 73; RESP 16; TEMP 36.1; O2SAT 96
[2022-01-16 07:01] LABS: INR 2.2; Prothrombin Time 23.7 Seconds (11.1-14.7)
[2022-01-16 08:00] VITALS: PULSE 68; RESP 16; O2SAT 95
[2022-01-16 08:09] LABS: Glucose Point of Care 165 mg/dl (65-105)
[2022-01-16 08:45] VITALS: PULSE 68; O2SAT 95
[2022-01-16] MEDS: CHOLECALCIFEROL 1,000 UNITS TABLET 2000 UNITS PO (08:52)
[2022-01-16] MEDS: TAMSULOSIN HCL 0.4 MG CAPSULE PO (08:52)
[2022-01-16] MEDS: LOSARTAN POTASSIUM 25 MG TABLET PO (08:53)
[2022-01-16] MEDS: SERTRALINE HCL 50 MG TABLET PO (08:53)
[2022-01-16] MEDS: ATORVASTATIN 20 MG TABLET PO (08:53)
[2022-01-16] MEDS: PANTOPRAZOLE 40 MG TABLET PO (08:53)
[2022-01-16] MEDS: SPIRONOLACTONE 25 MG TABLET PO (08:53)
[2022-01-16 11:17] LABS: Glucose Point of Care 174 mg/dl (65-105)
--- NOTE | 2022-01-16 12:00 | PM.DS ---
DS: Admitting Diagnosis Discharge Date January 16, 2022 Admitting Diagnosis Pneumonia DS: Summary Hospital Course Hospital Course: Patient was admitted for gait instability and weakness. Found have pneumonia and urinary tract infection. He was started on Rocephin and azithromycin and did exceptionally well. He never required any oxygen. Patient will be sent home on Omnicef which will cover treatment for both his UTI and also pneumonia. Time Spent with Patient Time attestation: Total time spent providing and/or coordinating discharge services: DS: Data Data Completed and Pending Labs on day of discharge: Labs from last 24 hours 01/16/22 01/16/22 01/16/22 11:11 07:31 06:15 PT 23.7 H INR 2.2 POC Capillary Glucose 174 H 165 H 01/15/22 16:10 PT INR POC Capillary Glucose 174 H Preliminary micro results at discharge 01/13/22 08:19 Blood Culture - Preliminary Blood Staphylococcus epidermis 01/14/22 18:15 Blood Culture - Preliminary Blood 01/14/22 18:15 Blood Culture - Preliminary Blood 01/13/22 08:19 Blood Culture - Preliminary Blood Staphylococcus epidermis Discharge Plan Discharge Attending physician on discharge: Anatoliy Cuellar Discharging Clinician: Anatoliy Cuellar Patient Disposition: Home, Self-Care Activity: no preference Diet: as tolerated Patient Instructions: Antibiotic Form, Warfarin (By mouth) Stand Alone Forms: General Discharge Information Follow-up/Referrals: Muriel Ferreira MD [Primary Care Provider] - Discharge Medications: New cefdinir 300 mg capsule 300 mg PO Q12H Qty: 10 0RF Continued tamsulosin 0.4 mg capsule 0.4 mg PO DAILY cholecalciferol (vitamin D3) 50 mcg (2,000 unit) capsule 50 mcg PO DAILY melatonin 10 mg capsule 10 mg PO QHS oxybutynin chloride 10 mg tablet extended release 24hr 10 mg PO DAILY atorvastatin 20 mg tablet 20 mg PO DAILY glipizide 5 mg tablet extended release 24hr 5 mg PO DAILY omeprazole 40 mg capsule,delayed release(DR/EC) 40 mg PO DAILY spironolactone 25 mg tablet 25 mg PO DAILY warfarin 4 mg tablet 4 mg PO DAILY losartan 25 mg tablet 25 mg PO DAILY metformin 500 mg tablet extended release 24 hr 500 mg PO BID sertraline 50 mg tablet 50 mg PO DAILY Date of admission: 01/14/22 13:36 Primary Care Provider: Muriel Ferreira Admitting Provider: Patrice Sterling Attending physician on admission: Nancy Jay Condition: Stable
== END 2022-01-16 14:45 | disposition home or self-care (01) | DRG 690 ==
LOC: ANHED 06:59 → ANH3MEDSUR 08:51
PROVIDERS: General Practice; Physician Assistant; Admitting Provider Family Medicine; Emergency Provider Emergency Medicine; PCP Family Medicine; Visit Provider Chiropractor
DX: N39.0 Urinary tract infection, site not specified (principal); N40.0 Benign prostatic hyperplasia without lower urinary tract symptoms; I48.0 Paroxysmal atrial fibrillation; I10 Essential (primary) hypertension; E78.5 Hyperlipidemia, unspecified; K21.9 Gastro-esophageal reflux disease without esophagitis; K44.9 Diaphragmatic hernia without obstruction or gangrene; H35.30 Unspecified macular degeneration; H54.8 Legal blindness, as defined in USA; G47.33 Obstructive sleep apnea (adult) (pediatric); M19.90 Unspecified osteoarthritis, unspecified site; R29.6 Repeated falls; F32.A Depression, unspecified; Z20.822 Contact with and (suspected) exposure to COVID-19; Z85.51 Personal history of malignant neoplasm of bladder; Z79.01 Long term (current) use of anticoagulants
CPT/HCPCS: 36415; 70450; 71045; 71046; 72125; 80048; 80053; 81001; 82550; 82948; 83036; 83605; 83735; 85025; 85610; 85730; 87040; 87077; 87086; 87088; 87186; 93005; 96361; 96365; 97110; 97161; 97165; 97530; 97535; 99285; A9270; C9803; G0378; J0456; J0696; J1815; J7030; U0003; U0005

== ENCOUNTER 2022-06-28 12:56 | Emergency (ER) | payer MEDICARE, SELFPAY ==
--- NOTE | ~2022-06-28 | CT_ITS ---
EXAMINATION: CT brain wo con INDICATION: Head injury COMPARISON: 01/13/2022 TECHNIQUE: Standard unenhanced head CT. The dose-length product (DLP) was 605.33 mGy-cm. The mA was a djusted according to patient size. Iterative reconstruction technique was employed. FINDINGS: There is no acute intraparenchymal hemorrhage. No evidence of mass lesion. No evidence of a cute infarction. There is mild periventricular and subcortical hypodensity probably related to small vessel ischemic disease. There is mild prominence of the sulci and ventricles related to cerebral atr ophy. Intracranial calcified cerebral atherosclerosis is noted. There are no extra-axial collections. There is no mass effect or midline shift. The orbits and soft tissues are unremarkable. There is mil d mucosal thickening of the paranasal sinuses. IMPRESSION: 1. No acute intracranial abnormality. 2. Age related findings. Reviewed, dictated and finalized at location A. W REMOVER
[2022-06-28 13:06] VITALS: BP 129/70; PULSE 85; RESP 18; TEMP 36.4; O2SAT 99
[2022-06-28 13:19] LABS: Basophils Absolute Auto 0.1 K/mm3 (0.0-0.1); Basophils Percent Auto 1.3 % (0.2-1.2); Eosinophils Absolute Auto 0.1 K/mm3 (0-0.3); Eosinophils Percent Auto 0.8 % (0-4.4); Hematocrit 39.4 % (42.0-52.0); Immature Granulocyte Absolute 0.02 K/mm3 (0.00-0.031); Immature Granulocyte Percent A 0.3 % (0-0.5); Lymphocytes Absolute Auto 1.99 K/mm3 (0.9-3.2); Lymphocytes Percent Auto 31.4 % (18.3-44.2); Mean Corpuscular Hemoglobin 29.7 pg (26-34); Mean Platelet Volume 8.6 fl (7.4-10.4); Monocytes Absolute Auto 0.5 K/mm3 (0.1-0.6); Monocytes Percent Auto 8.2 % (2.6-8.5); Neutrophils Absolute Auto 3.7 K/mm3 (1.3-6.7); Platelet Count Result 352 k/mm3 (150-375); Red Blood Count 4.38 M/mm3 (4.6-6.20); Red Cell Distribution Width 13.1 % (11.5-14.5); White Blood Count 6.3 K/mm3 (4.5-10.0)
[2022-06-28 13:25] VITALS: PULSE 69; RESP 14; O2SAT 98
[2022-06-28 13:30] LABS: Alanine Aminotransferase 30 U/L (6-50); Albumin Level 4.3 g/dL (3.5-5.1); Alkaline Phosphatase 141 U/L (38-126); Anion Gap 5 mmol/L (8-16); Aspartate Amino Transferase 38 U/L (17-59); Bilirubin,Total 0.7 mg/dL (0.2-1.3); Blood Urea Nitrogen 11 mg/dL (9-20); Calcium 8.9 mg/dL (8.4-10.2); Carbon Dioxide 32 mmol/L (22-30); Chloride 92 mmol/L (98-107); Estimated CRCL calculation 71 ml/min; Estimated Glomerular Filt Rate > 60; Glucose 141 mg/dL (65-110); Potassium 4.2 mmol/L (3.4-5.0); Sodium 129 mmol/L (137-145)
[2022-06-28 13:31] LABS: Prothrombin Time 75.6 Seconds (11.1-14.7)
[2022-06-28 13:33] LABS: Partial Thromboplastin Time 122.1 SECONDS (22.3-36.8)
[2022-06-28 13:38] LABS: INR 9.7
[2022-06-28 14:03] VITALS: PULSE 77; RESP 18
[2022-06-28 14:05] VITALS: BP 100/61; RESP 15; O2SAT 98
[2022-06-28] MEDS: LACTATED RINGERS 1,000 ML 999 ML IV CONT (14:09)
[2022-06-28 14:15] VITALS: PULSE 61; RESP 14; O2SAT 99
[2022-06-28 14:35] VITALS: BP 103/58; PULSE 79; RESP 19; O2SAT 100
--- NOTE | 2022-06-28 14:51 | ED.RECABL ---
HPI - Recheck/Abnormal Lab/Rx General Chief Complaint: Recheck/Abnormal Lab/Rx Stated Complaint: abnormal labs Time Seen by Provider: 06/28/22 13:12 History of Present Illness HPI narrative: Patient hasn't had his INR checked in months, has been on same dosage of warfarin for afib for years. Called by PCP today due to routine INR being 18, came in today. Denies any new symptoms, though over the past month has had several falls at home. Denies any bleeding anywhere including from rectum. Related Data Home Medications Medication Instructions Recorded Confirmed tamsulosin 0.4 mg capsule 0.4 mg PO DAILY 12/15/19 01/29/22 cholecalciferol (vitamin D3) 50 50 mcg PO DAILY 01/25/20 01/29/22 mcg (2,000 unit) capsule melatonin 10 mg capsule 10 mg PO QHS 11/21/21 01/29/22 atorvastatin 20 mg tablet 20 mg PO DAILY 01/13/22 01/29/22 glipizide 5 mg tablet, extended 5 mg PO DAILY 01/13/22 01/29/22 release 24 hr oxybutynin chloride 10 mg 10 mg PO DAILY 01/13/22 01/29/22 tablet,extended release 24 hr sertraline 50 mg tablet 50 mg PO DAILY 01/13/22 01/29/22 spironolactone 25 mg tablet 25 mg PO DAILY 01/13/22 01/29/22 Allergies Allergy/AdvReac Type Severity Reaction Status Date / Time No Known Allergies Allergy Verified 01/29/22 16:28 Review of Systems Review of Systems: CONST: No fever. HEENT: No sore throat C/V: No chest pain RESP: No cough GI: No abdominal pain : No dysuria. M/S: No joint pain. SKIN: No rash. NEURO: [No headache or focal numbness or weakness] PSYCH: [No depression] [facility] Past Medical History Medical History Benign prostatic hyperplasia Bradycardia (~12/2019) At which time his metoprolol was discontinued. Current use of halfway anticoagulation On warfarin for stroke prophylaxis due to atrial fibrillation. 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 Mixed hyperlipidemia Obstructive sleep apnea on CPAP Osteoarthritis Paroxysmal atrial fibrillation Personal history of malignant neoplasm of bladder Type 2 diabetes mellitus Surgical History Surgical History History of appendectomy History of bladder surgery Tumor removal History of tonsillectomy Family History Family History Other Adopted Social History Social History Social History: Lives at home with his to whom he has been 50 years. He is typically independent with his activities. He enjoys working in his home [employer] shop. He has 2 adult children. His primary care provider is Dr. Muriel Ferreira. He designates his , Celina Stewart as his surrogate decision maker. He would like to be a full code Smoking status: Never smoker Alcohol intake: never Substance use: never Additional living arrangements comments: Spiritual care concerns: No Exam Narrative: EXAMINATION OF ORGAN SYSTEMS/BODY AREAS: Constitutional: Vital signs per nursing GENERAL:[No acute distress, non-toxic appearing.] HEAD: Normal with no signs of head trauma. ENT: No signs of blood in nares or throat LUNGS: Nonlabored breathing. HEART: [Regular rate and rhythm] ABD: [Soft], [nontender to palpation] EXT: Normal range of motion SKIN: Slight bruise to right abdomen but no bruising anywhere else on body NEURO: [Alert. No gross focal sensory or strength deficits.] PSYCH: Normal affect Course Vital Signs Vital signs: Vital Signs Temperature 97.5 F L 06/28/22 13:06 Pulse Rate 85 06/28/22 13:06 Respiratory Rate 18 06/28/22 13:06 Blood Pressure 129/70 06/28/22 13:06 Pulse Oximetry 99 06/28/22 13:06 Oxygen Delivery Room Air 06/28/22 13:06 Temperature 97.5 F L 06/28/22 13:06 Pulse Rate
[2022-06-28] MEDS: PHYTONADIONE 2.5 MG TAB PO (14:55)
== END 2022-06-28 15:10 | disposition home or self-care (01) ==
PROVIDERS: Emergency Medicine; Emergency Provider Emergency Medicine; PCP Family Medicine
DX: R79.1 Abnormal coagulation profile (principal); I48.91 Unspecified atrial fibrillation; I10 Essential (primary) hypertension; E78.2 Mixed hyperlipidemia; E11.9 Type 2 diabetes mellitus without complications; Z79.01 Long term (current) use of anticoagulants; Z85.51 Personal history of malignant neoplasm of bladder
CPT/HCPCS: 36415; 70450; 80053; 85025; 85610; 85730; 99284; A9270; J7120

== ENCOUNTER 2022-07-02 09:28 | Outpatient (CLI) | payer MEDICARE, SELFPAY ==
[2022-07-02 11:03] LABS: Alanine Aminotransferase 24 U/L (6-50); Albumin Level 3.8 g/dL (3.5-5.1); Alkaline Phosphatase 132 U/L (38-126); Anion Gap 6 mmol/L (8-16); Aspartate Amino Transferase 29 U/L (17-59); Bilirubin,Total 0.8 mg/dL (0.2-1.3); Blood Urea Nitrogen 8 mg/dL (9-20); Calcium 8.8 mg/dL (8.4-10.2); Carbon Dioxide 29 mmol/L (22-30); Chloride 97 mmol/L (98-107); Estimated Glomerular Filt Rate > 60; Glucose 155 mg/dL (65-110); INR 3.5; Potassium 4.8 mmol/L (3.4-5.0); Prothrombin Time 33.8 Seconds (11.1-14.7); Sodium 132 mmol/L (137-145)
== END 2022-07-02 09:29 | disposition home or self-care (01) ==
PROVIDERS: PCP Family Medicine; Visit Provider Family Medicine
DX: E87.1 Hypo-osmolality and hyponatremia (principal); Z79.01 Long term (current) use of anticoagulants
CPT/HCPCS: 36415; 80053; 85610

== ENCOUNTER 2022-07-08 11:34 | Outpatient (CLI) | payer MEDICARE, SELFPAY ==
[2022-07-08 15:44] LABS: INR 2.2; Prothrombin Time 23.9 Seconds (11.1-14.7)
== END 2022-07-08 11:35 | disposition home or self-care (01) ==
LOC: ANHGOSHLAB 11:38
PROVIDERS: PCP Family Medicine; Visit Provider Family Medicine
DX: I48.0 Paroxysmal atrial fibrillation (principal); Z79.01 Long term (current) use of anticoagulants
CPT/HCPCS: 36415; 85610

== ENCOUNTER 2022-07-16 11:14 | Outpatient (NON) | payer MEDICARE, SELFPAY ==
[2022-07-16 11:38] LABS: INR 3.1; Prothrombin Time 30.6 Seconds (11.1-14.7)
== END 2022-07-16 11:15 | disposition home or self-care (01) ==
PROVIDERS: PCP Family Medicine; Visit Provider Family Medicine
DX: I48.91 Unspecified atrial fibrillation (principal); R79.1 Abnormal coagulation profile; E11.9 Type 2 diabetes mellitus without complications; E87.1 Hypo-osmolality and hyponatremia
CPT/HCPCS: 85610

== ENCOUNTER 2022-10-23 11:29 | Outpatient (RCR) | payer MEDICARE, SELFPAY ==
[2022-08-06 19:25] LABS: INR 1.7; Prothrombin Time 19.1 Seconds (11.1-14.7)
[2022-08-13 19:42] LABS: INR 2.6; Prothrombin Time 27.2 Seconds (11.1-14.7)
[2022-10-23 18:28] LABS: INR 2.2; Prothrombin Time 25.9 Seconds (11.1-14.7)
== END 2022-11-04 23:59 | disposition home or self-care (01) ==
LOC: ANHGOSHLAB 11:29
PROVIDERS: PCP Family Medicine; Visit Provider Family Medicine
DX: Z51.81 Encounter for therapeutic drug level monitoring (principal); Z79.01 Long term (current) use of anticoagulants
CPT/HCPCS: 36415; 85610

== ENCOUNTER 2023-01-19 14:48 | Outpatient (CLI) | payer MEDICARE, SELFPAY ==
[2023-01-19 19:07] LABS: INR 1.9; Prothrombin Time 23.1 Seconds (11.1-14.7)
== END 2023-01-19 14:49 | disposition home or self-care (01) ==
PROVIDERS: PCP Family Medicine; Visit Provider Family Medicine
DX: I48.0 Paroxysmal atrial fibrillation (principal); Z79.01 Long term (current) use of anticoagulants
CPT/HCPCS: 36415; 85610

== ENCOUNTER 2023-08-25 09:31 | Outpatient (CLI) | payer MEDICARE, SELFPAY ==
[2023-08-25 14:41] LABS: Alanine Aminotransferase 24 U/L (6-50); Albumin Level 4.2 g/dL (3.5-5.1); Alkaline Phosphatase 75 U/L (38-126); Anion Gap 8 mmol/L (4-12); Aspartate Amino Transferase 40 U/L (17-59); Basophils Absolute Auto 0.1 K/mm3 (0.0-0.1); Bilirubin,Total 0.8 mg/dL (0.2-1.3); Blood Urea Nitrogen 19 mg/dL (9-20); Calcium 9.4 mg/dL (8.4-10.2); Carbon Dioxide 30 mmol/L (22-30); Chloride 96 mmol/L (98-107); Cholesterol 116 mg/dL (0-200); Eosinophils Absolute Auto 0.1 K/mm3 (0-0.3); Eosinophils Percent Auto 1.8 % (0-4.4); Estimated Glomerular Filt Rate > 60; Glucose 127 mg/dL (65-110); HDL Direct 44 mg/dL; Hematocrit 41.7 % (42.0-52.0); Hemoglobin 13.5 g/dL (14.0-18.0); Immature Granulocyte Absolute 0.01 K/mm3 (0.00-0.031); Immature Granulocyte Percent A 0.2 % (0-0.5); Lymphocytes Absolute Auto 1.85 K/mm3 (0.9-3.2); Lymphocytes Percent Auto 36.9 % (18.3-44.2); Mean Corpuscular HGB Conc 32.4 g/dl (32-36); Mean Corpuscular Hemoglobin 32.1 pg (26-34); Mean Corpuscular Volume 99.3 fl (80-100); Mean Platelet Volume 9.5 fl (7.4-10.4); Monocytes Absolute Auto 0.5 K/mm3 (0.1-0.6); Monocytes Percent Auto 10.2 % (2.6-8.5); Neutrophils Absolute Auto 2.5 K/mm3 (1.3-6.7); Neutrophils Percent Auto 48.9 % (45.5-73.1); Platelet Count Result 243 k/mm3 (150-375); Potassium 4.8 mmol/L (3.4-5.0); Red Cell Distribution Width 12.8 % (11.5-14.5); Sodium 134 mmol/L (137-145); Triglycerides 142 mg/dL (<150)
[2023-08-25 14:54] LABS: INR 1.6; Prothrombin Time 19.9 Seconds (11.1-14.7)
[2023-08-25 15:00] LABS: LDL Cholesterol Direct 49 mg/dL
[2023-08-25 18:28] LABS: Hemoglobin A1C 5.9 % (<5.7)
[2023-08-25 22:17] LABS: Creatinine Urine 148.3 mg/dL
[2023-08-25 22:26] LABS: MALB Creatinine Ratio 24.8 mg/g (0-30); Microalbumin Urine Random 36.8 mg/L (0-16.7)
== END 2023-08-25 09:32 | disposition home or self-care (01) ==
PROVIDERS: PCP Family Medicine; Visit Provider Family Medicine
DX: G47.33 Obstructive sleep apnea (adult) (pediatric) (principal); E11.42 Type 2 diabetes mellitus with diabetic polyneuropathy; F33.9 Major depressive disorder, recurrent, unspecified; Z99.89 Dependence on other enabling machines and devices; Z79.01 Long term (current) use of anticoagulants
CPT/HCPCS: 36415; 80053; 80061; 82043; 82607; 82728; 83036; 84443; 85025; 85610

== ENCOUNTER 2023-10-20 14:48 | Outpatient (RCR) | payer MEDICARE, SELFPAY ==
[2023-10-20 19:54] LABS: INR 3.3; Prothrombin Time 36.8 Seconds (11.1-14.7)
== END 2024-01-18 23:59 | disposition home or self-care (01) ==
LOC: ANHGOSHLAB 14:48
PROVIDERS: PCP Family Medicine; Visit Provider Student in an Organized Health Care Education/Training Program
DX: I48.0 Paroxysmal atrial fibrillation (principal)
CPT/HCPCS: 36415; 85610

== ENCOUNTER 2024-07-18 09:22 | Emergency (ER) | payer MEDICARE, SELFPAY ==
[2024-07-18] VITALS (25 sets, daily range): BP systolic 126–153; BP diastolic 64–84; PULSE 59–76; RESP 12–23; TEMP 36.7; O2SAT 97–100
--- NOTE | ~2024-07-18 | CT_ITS ---
EXAMINATION: CTA chest abdomen pelvis DATE: 07/18/2024 10:16 SORTER/ASSAY TECH INDICATION: Chest pain radiating into right flank. Aortic dissection suspected clinically COMPARISON: 05/26/2018 TECHNIQUE: Computed tomographic angiography (CTA) of the chest was performed, along with multiple con tiguous axial images of the abdomen and pelvis with 100 mL Omnipaque-350 intravenous contrast. The do se-length product was 1819.79 mGy-cm. Maximum intensity projection 3D-reconstructions of the aorta an d other arteries were constructed by the technologist on a separate workstation. FINDINGS/OBSERVATIONS: PULMONARY ARTERIES: No filling defect is identified within the main or proximal pulmonary artery. The main pulmonary artery is not enlarged. THORACIC AORTA: No aneurysmal dilatation or dissection is present. The great vessels are intact LUNGS: Trace basilar atelectasis. MEDIASTINUM: No morphologically suspicious or pathologically enlarged lymph nodes are identified with in the mediastinum or bilateral axilla. A large hiatal hernia is identified extending along the entirety of the chest, unchanged from 2019. BONES OF THE CHEST: No acute fracture. No significant degenerative disease. No lytic or blastic lesions. HEART: The heart is enlarged, without pericardial effusion. LIVER: The liver enhances homogeneously and is not enlarged measuring 18 cm in longitudinal dimension. GALLBLADDER AND BILIARY SYSTEM: The gallbladder is only minimally distended, and otherwise unremarkable. PANCREAS: The pancreas enhances homogeneously without ductal dilatation. SPLEEN: The spleen enhances homogeneously and is not enlarged measuring 4 cm in longitudinal dimension. KIDNEYS: Mild right-sided hydroureteronephrosis without an obstructing stone. The left kidney demonstrates a fluid attenuation well-circumscribed focus along the medial margin of the upper pole, consistent with a simple cyst. ADRENAL GLANDS: Unremarkable. GASTROINTESTINAL TRACT: Colonic diverticulosis without surrounding inflammatory change. Fecal stasis within the rectum APPENDIX: The appendix is not definitively visualized. However, no pericecal inflammatory change is identified suggest the presence of acute appendicitis. VASCULATURE: No aneurysmal dilatation or densely calcified disease. LYMPH NODES: No pathologically enlarged or morphologically suspicious lymph nodes within the retroperitoneum or at the root of the mesentery. PELVIC STRUCTURES: The bladder is distended, and otherwise unremarkable. The prostate gland is not enlarged. BODY WALL AND MUSCULOSKELETAL: Small fat-containing umbilical hernia. No significant degenerative disease within the lower thoracic or lumbosacral spine. IMPRESSION: Redemonstration of a large gastroesophageal hiatal hernia, largely unchanged from 2019 Mild right-sided hydroureteronephrosis without an obstructing stone. Colonic diverticulosis. No aortic dissection identified. Reviewed, dictated and finalized at location A. ER/ASSAY TECH IMPRESSION: Redemonstration of a large gastroesophageal hiatal hernia, largely unchanged fr om 2019 Mild right-sided hydroureteronephrosis without an obstructing stone. Colonic diverticulosis. No aortic dissection identified.
--- NOTE | ~2024-07-18 | XR_ITS ---
EXAMINATION: XR chest 1V portable DATE: 07/18/2024 10:32 INDICATION: Chest pain TECHNIQUE: frontal view of the chest was obtained. COMPARISON: Chest radiograph dated 11/14/2021 FINDINGS: Calcified nodule at the right lung base consistent with old granulomatous disease. The lungs are othe rwise clear with no focal airspace opacities, pulmonary edema, pleural effusion or pneumothorax. Card iomegaly. Prominent gaseous distention of the esophagus particularly upper chest. IMPRESSION: 1. Cardiomegaly. No other acute cardiopulmonary disease. 2. Nonspecific prominent gaseous distention of the esophagus. Reviewed, dictated and finalized at location B. INUM POURER
--- NOTE | 2024-07-18 09:29 | ECG_ITS ---
Test Date: 2024-07-18 12:43:06 Measurements Intervals [place] Rate: 68 P: 0 AL: 0 QRS: -33 QRSD: 86 T: 53 QT: 389 QTc: 415 Interpretive Statements ATRIAL FIBRILLATION LEFT AXIS DEVIATION LOW QRS VOLTAGE IN PRECORDIAL LEAD ANTEROSEPTAL INFARCT, AGE INDETERMINATE INFERIOR INFARCT, AGE INDETERMINATE BORDERLINE ST ABNORMALITY- LATERAL LEADS BASELINE ARTIFACT- I, II, III ABNORMAL ECG No previous ECG available for comparison Electronically Signed On 07-18-2024 14:45:02 [employer] CAR OPERATOR by Devon Jarvis D.O.
--- NOTE | 2024-07-18 09:36 | ED_ITS ---
HPI - General Adult General Chief complaint: Chest Pain Stated complaint: chest pain Time Seen by Provider: 07/18/24 09:28 History of Present Illness HPI narrative: 84-year-old male presents to the emergency department for evaluation for chest pain. Patient states the chest pain radiate from his chest into his back. When EMS arrived they were told that the chest pain was improving. At time of initial evaluation patient denies any chest pain chest tightness or chest pressure. Patient says he does have some right flank pain which he has had for proximal the past 2 weeks. Patient denies any prior history of kidney stones. Patient denies any pain with urination. Related Data Home Medications ?Medication ?Instructions ?Recorded ?Confirmed ?Last Taken ?Type tamsulosin 0.4 mg capsule 0.4 mg PO DAILY 12/15/19 08/27/23 02/27/20 History cholecalciferol (vitamin D3) 50 50 mcg PO DAILY 01/25/20 08/27/23 02/28/20 History mcg (2,000 unit) capsule melatonin 10 mg capsule 10 mg PO QHS 11/21/21 08/27/23 Unknown History vibegron 75 mg tablet (Gemtesa) 75 mg PO DAILY 02/10/23 08/27/23 Unknown History Allergies Allergy/AdvReac Type Severity Reaction Status Date / Time No Known Allergies Allergy Verified 08/27/23 13:31 Review of Systems 2 Review of Systems: All systems reviewed & are unremarkable except as noted in HPI and below PMFSH Past Medical History Medical History Acute UTI Benign prostatic hyperplasia Bilateral leg weakness Bradycardia (~12/2019) At which time his metoprolol was discontinued. Current use of prison anticoagulation On warfarin for stroke prophylaxis due to atrial fibrillation. 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 Mixed hyperlipidemia Obstructive sleep apnea on CPAP Osteoarthritis Paroxysmal atrial fibrillation On warfarin for stroke prophylaxis due to atrial fibrillation. 2.2022 [id number]: 4, HASBLED 3( when INR fluctuating), 2 ( when inr stable) Personal history of malignant neoplasm of bladder Surgical History Surgical History History of appendectomy History of bladder surgery Tumor removal History of tonsillectomy Family History Family History Other Adopted Social History Social History (Updated 08/27/23 @ 13:33 by Ita James MA) Social History: Lives at home with his to whom he has been 50 years. He is typically independent with his activities. He enjoys working in his home [employer] shop. He has 2 adult children. His primary care provider is Dr. Muriel Ferreira. He designates his , Celina Stewart as his surrogate decision maker. He would like to be a full code Smoking status: Never smoker Alcohol intake: never Substance use: never Substance use type: does not use Do You Feel Safe in your Home?: Yes Lack of Transportation: No Lack of Food: Never True Current Housing: I Have Housing Concerned About Future Housing: No Difficulty Paying Gas/Electric Bills: No Difficulty Paying for Meds: No Currently Unemployed: No Education: Master's Degree or Higher Difficulty w/ Childcare or Family Care: No Living arrangements: with family Additional living arrangements comments: Spiritual care concerns: No Exam 2 Narrative: APPEARANCE: Well appearing, no pain, no distress, well-nourished. HEAD: normocephalic, atraumatic. EYES: Blind NOSE: Normal no drainage EARS:TMS clear with good light reflex. THROAT: Pharynx clear, no exudate. NECK: Supple. No adenopathy, no masses. RESPIRATORY: Airway patent, respirations nonlabored. Clear to auscultation bilaterally, no rales, rhonchi, wheezing. CARDIOVASCULAR: Regular rate and rhythm without murmurs rubs or gallops. ABDOMINAL: Soft, nontender, nondistended, normal bowel sounds MUSCULOSKELETAL: Moves all extremities. Strength/ROM intact, No edema, No calf tenderness. NEURO: Alert. Cranial nerves II through XII intact. Good gait. Good coordination SKIN: Warm, dry. Normal Color Course Vital Signs Vital signs: Vital Signs Temperature 98.1 F 07/18/24 09:20 Pulse Rate 73 07/18/24 09:20 Respiratory Rate 15 07/18/24 09:20 Blood Pressure 129/79 07/18/24 09:20 Pulse Oximetry 98 07/18/24 09:20 Oxygen Delivery Room Air 07/18/24 09:20 Temperature 98.1 F 07/18/24 09:20 Pulse Rate 63 07/18/24 14:15 Respiratory Rate 14 07/18/24 14:15 Blood Pressure 126/66 07/18/24 14:01 Pulse Oximetry 99 07/18/24 14:15 Oxygen Delivery Room Air 07/18/24 10:16 Medical Decision Making MDM Narrative Medical decision making narrative: 84-year-old male present to the emergency department for evaluation for right flank pain and episode chest pain this morning. Patient has been chest pain chest pressure free the entire time he has been in the emergency department. Patient is afebrile with no leukocytosis and a hemoglobin of 13.0. Patient has an INR of 3.2 and patient does take Coumadin. Patient had negative serial troponins and negative serial EKGs UA was concerning for urinary tract infection and this may be the underlying cause of the patient's flank pain. Patient was negative for influenza RSV and for COVID. CTA chest abdomen pelvis did show a large hiatal hernia that was unchanged. On re-evaluation patient states he does feel improved. They were comfortable with plan for discharge and close follow- up. Patient strongly prefers to be discharged home and both and patient feel he is able to be cared for at home. Differential Diagnosis Differential Diagnosis: Dissection, ACS, NSTEMI, ureteral calculi, urinary tract infection Vital Signs Vital Signs: Vital Signs Temperature 98.1 F 07/18/24 09:20 Pulse Rate 73 07/18/24 09:20 Respiratory Rate 15 07/18/24 09:20 Blood Pressure 129/79 07/18/24 09:20 Pulse Oximetry 98 07/18/24 09:20 Oxygen Delivery Room Air 07/18/24 09:20 Temperature 98.1 F 07/18/24 09:20 Pulse Rate 63 07/18/24 14:15 Respiratory Rate 14 07/18/24 14:15 Blood Pressure 126/66 07/18/24 14:01 Pulse Oximetry 99 07/18/24 14:15 Oxygen Delivery Room Air 07/18/24 10:16 Lab Data Lab results reviewed: Yes I reviewed the patient's lab results. 07/18/24 09:35 07/18/24 09:35 Labs: Lab Results 07/18/24 07/18/24 07/18/24 Range/Units 09:35 09:35 10:13 WBC 5.0 (4.5-10.0) K/mm3 RBC 4.11 L (4.6-6.20) M/mm3 Hgb 13.0 L (14.0-18.0) g/dL Hct 39.1 L (42.0-52.0) % MCV 95.1 (80-100) fl MCH 31.6 (26-34) pg MCHC 33.2 (32-36) g/dl RDW 12.6 (11.5-14.5) % Plt Count 216 (150-375) k/mm3 MPV 9.0 (7.4-10.4) fl Immature Gran % (Auto) 0.4 (0-0.5) % Neut % (Auto) 59.5 (45.5-73.1) % Lymph % (Auto) 27.2 (18.3-44.2) % [place] % (Auto) 9.5 H (2.6-8.5) % Eos % (Auto) 1.4 (0-4.4) % Baso % (Auto) 2.0 H (0.2-1.2) % Lymph # (Auto) 1.35 (0.9-3.2) K/mm3 [place] # (Auto) 0.5 (0.1-0.6) K/mm3 Eos # (Auto) 0.1 (0-0.3) K/mm3 Baso # (Auto) 0.1 (0.0-0.1) K/mm3 Abs Immat Gran (auto) 0.02 (0.00-0.031) K/mm3 Absolute Neuts (auto) 3.0 (1.3-6.7) K/mm3 Absolute Nucleated RBC 0.000 (0.0-0.012) K/mm3 Nucleated RBC % 0.0 (0.0-0.2) % PT 33.3 H (11.1-14.7) Seconds INR 3.2 APTT 41.8 H (22.3-36.8) Seconds Sodium 132 L (137-145) mmol/L Potassium 4.6 (3.4-5.0) mmol/L Chloride 96 L (98-107) mmol/L Carbon Dioxide 26 (22-30) mmol/L Anion Gap 10 (4-12) mmol/L BUN 13 D (9-20) mg/dL Creatinine 0.85 (0.7-1.3) mg/dL Estim Creat Clear Calc 72 ml/min Estimated GFR > 60 (59 - ) Glucose 146 H (65-110) mg/dL Calcium 9.2 (8.4-10.2) mg/dL Total Bilirubin 0.8 (0.2-1.3) mg/dL AST 30 (17-59) U/L ALT 30 (6-50) U/L Alkaline Phosphatase 106 (38-126) U/L Troponin I < 0.012 Cancelled (0.000-0.034) ng/mL NT-Pro-B Natriuret Pep 725 H (19.9-100) pg/mL Total Protein 8.0 (6.3-8.2) g/dL Albumin 4.3 (3.5-5.1) g/dL Urine Color (Yellow) Urine Appearance (Clear) Urine pH (5.0-9.0) Ur Specific [place] (1.001-1.035) Urine Protein (Negative) mg/dL Urine Glucose (UA) (Negative) mg/dL Urine Ketones (Negative) mg/dL Ur Blood (Man) (Negative) Urine Nitrate (Negative) Urine Bilirubin (Negative) Urine Urobilinogen (<2.0) mg/dL Add Ur Microanalysis Leukocyte Esterase Rfl (Negative) MORIS/UL Urine RBC (0-2) /hpf Urine WBC (0-3) /hpf Ur Squamous Epith Cells (Few) /hpf Urine Bacteria /hpf Urine Casts Influenza A (RT-PCR) Negative (Negative) Influenza B (RT-PCR) Negative (Negative) RSV (RT-PCR) Negative (Negative) SARS-CoV-2 RNA (RT-PCR) Negative (Negative) 07/18/24 07/18/24 Range/Units 11:27 12:44 WBC (4.5-10.0) K/mm3 RBC (4.6-6.20) M/mm3 Hgb (14.0-18.0) g/dL Hct (42.0-52.0) % MCV (80-100) fl MCH (26-34) pg MCHC (32-36) g/dl RDW (11.5-14.5) % Plt Count (150-375) k/mm3 MPV (7.4-10.4) fl Immature Gran % (Auto) (0-0.5) % Neut % (Auto) (45.5-73.1) % Lymph % (Auto) (18.3-44.2) % [place] % (Auto) (2.6-8.5) % Eos % (Auto) (0-4.4) % Baso % (Auto) (0.2-1.2) % Lymph # (Auto) (0.9-3.2) K/mm3 [place] # (Auto) (0.1-0.6) K/mm3 Eos # (Auto) (0-0.3) K/mm3 Baso # (Auto) (0.0-0.1) K/mm3 Abs Immat Gran (auto) (0.00-0.031) K/mm3 Absolute Neuts (auto) (1.3-6.7) K/mm3 Absolute Nucleated RBC (0.0-0.012) K/mm3 Nucleated RBC % (0.0-0.2) % PT (11.1-14.7) Seconds INR APTT (22.3-36.8) Seconds Sodium (137-145) mmol/L Potassium (3.4-5.0) mmol/L Chloride (98-107) mmol/L Carbon Dioxide (22-30) mmol/L Anion Gap (4-12) mmol/L BUN (9-20) mg/dL Creatinine (0.7-1.3) mg/dL Estim Creat Clear Calc ml/min Estimated GFR (59 - ) Glucose (65-110) mg/dL Calcium (8.4-10.2) mg/dL Total Bilirubin (0.2-1.3) mg/dL AST (17-59) U/L ALT (6-50) U/L Alkaline Phosphatase (38-126) U/L Troponin I < 0.012 (0.000-0.034) ng/mL NT-Pro-B Natriuret Pep (19.9-100) pg/mL Total Protein (6.3-8.2) g/dL Albumin (3.5-5.1) g/dL Urine Color Yellow (Yellow) Urine Appearance Clear (Clear) Urine pH 6.5 (5.0-9.0) Ur Specific [place] 1.013 (1.001-1.035) Urine Protein Negative (Negative) mg/dL Urine Glucose (UA) Negative (Negative) mg/dL Urine Ketones Negative (Negative) mg/dL Ur Blood (Man) Negative (Negative) Urine Nitrate Negative (Negative) Urine Bilirubin Negative (Negative) Urine Urobilinogen 0.2 (<2.0) mg/dL Add Ur Microanalysis Reviewed Leukocyte Esterase Rfl 2+ H (Negative) MORIS/UL Urine RBC 0-2 (0-2) /hpf Urine WBC 21-50 H (0-3) /hpf Ur Squamous Epith Cells None seen (Few) /hpf Urine Bacteria 4+ H /hpf Urine Casts 0-2 Influenza A (RT-PCR) (Negative) Influenza B (RT-PCR) (Negative) RSV (RT-PCR) (Negative) SARS-CoV-2 RNA (RT-PCR) (Negative) Imaging Data Radiologist's impression: Impressions Chest/Abdomen/Pelvis CTA 07/18/24 10:16 IMPRESSION: Redemonstration of a large gastroesophageal hiatal hernia, largely unchanged from 2019 Mild right-sided hydroureteronephrosis without an obstructing stone. Colonic diverticulosis. No aortic dissection identified. Chest X-Ray 07/18/24 10:32 IMPRESSION: 1. Cardiomegaly. No other acute cardiopulmonary disease. 2. Nonspecific prominent gaseous distention of the esophagus. Discharge Plan Discharge Clinical Impression: Chest pressure, Hernia, hiatal, Acute UTI Patient Disposition: Home, Self-Care Condition: Stable Instructions: Antibiotic Form, Urinary Tract Infection in Men (ED) Additional Instructions: Antibiotic as directed for the urinary tract infection. Pyridium as needed for urinary symptoms. Have close follow-up with her primary care physician for additional outpatient cardiac testing. If you have any worsening symptoms then please call or return to the emergency department. Your medications may increase your INR so please have your INR/warfarin level checked in the next few days. Patient Language: Guyanese Prescriptions: New cephalexin 500 mg capsule 500 mg PO Q8H 7 Days Qty: 21 0RF phenazopyridine [Pyridium] 100 mg tablet 100 mg PO TID PRN (Reason: pain) Qty: 6 0RF No Action Gemtesa 75 mg tablet 75 mg PO DAILY tamsulosin 0.4 mg capsule 0.4 mg PO DAILY cholecalciferol (vitamin D3) 50 mcg (2,000 unit) capsule 50 mcg PO DAILY melatonin 10 mg capsule 10 mg PO QHS warfarin 1 mg tablet 3 mg PO DAILY Qty: 270 3RF Rx Instructions: Take 3 mg q day with 4mg q day for total daily dose of 7 mg glipizide 5 mg tablet extended release 24hr 5 mg PO DAILY Qty: 90 2RF atorvastatin 20 mg tablet 20 mg PO DAILY Qty: 90 1RF Rx Instructions: DUE FOR APPOINTMENT spironolactone 25 mg tablet 25 mg PO DAILY Qty: 90 0RF Rx Instructions: DUE FOR AN APPOINTMENT sertraline 50 mg tablet 50 mg PO DAILY Qty: 90 0RF Rx Instructions: DUE FOR AN APPOINTMENT metformin 500 mg tablet extended release 24 hr 1,000 mg PO DAILY Qty: 180 0RF Rx Instructions: NEEDS APPOINTMENT FOR FURTHER REFILLS omeprazole 40 mg capsule,delayed release(DR/EC) See Rx Instructions .ROUTE .COMPLEX Qty: 90 0RF Dose Instruction: TAKE 1 CAPSULE BY MOUTH DAILY Rx Instructions: TAKE 1 CAPSULE BY MOUTH DAILY losartan 25 mg tablet See Rx Instructions .ROUTE .COMPLEX Qty: 90 1RF Dose Instruction: TAKE 1 TABLET BY MOUTH DAILY Rx Instructions: TAKE 1 TABLET BY MOUTH DAILY warfarin 4 mg tablet 4 mg PO DAILY Qty: 90 0RF Rx Instructions: take 4mg tab q day with 3 mg q day to equal total daily dose of 7 mg NEEDS APPOINTMENT,LAST REFILL Follow-up/Referrals: Muriel Ferreira MD [Primary Care Provider] - Quality HEART score for chest pain patients History: slightly suspicious ECG: normal Age: > or = to 65 years Risk factors: 1 or 2 risk factors Troponin: < or = to 1x normal limit Heart score: 3
[2024-07-18 09:42] LABS: Basophils Absolute Auto 0.1 K/mm3 (0.0-0.1); Eosinophils Absolute Auto 0.1 K/mm3 (0-0.3); Eosinophils Percent Auto 1.4 % (0-4.4); Hematocrit 39.1 % (42.0-52.0); Immature Granulocyte Absolute 0.02 K/mm3 (0.00-0.031); Immature Granulocyte Percent A 0.4 % (0-0.5); Lymphocytes Absolute Auto 1.35 K/mm3 (0.9-3.2); Lymphocytes Percent Auto 27.2 % (18.3-44.2); Mean Corpuscular HGB Conc 33.2 g/dl (32-36); Mean Corpuscular Hemoglobin 31.6 pg (26-34); Mean Corpuscular Volume 95.1 fl (80-100); Monocytes Absolute Auto 0.5 K/mm3 (0.1-0.6); Monocytes Percent Auto 9.5 % (2.6-8.5); Neutrophils Percent Auto 59.5 % (45.5-73.1); Platelet Count Result 216 k/mm3 (150-375); Red Blood Count 4.11 M/mm3 (4.6-6.20); Red Cell Distribution Width 12.6 % (11.5-14.5)
[2024-07-18 09:54] LABS: INR 3.2; Prothrombin Time 33.3 Seconds (11.1-14.7)
[2024-07-18 09:55] LABS: Partial Thromboplastin Time 41.8 Seconds (22.3-36.8)
[2024-07-18 09:56] LABS: Alanine Aminotransferase 30 U/L (6-50); Albumin Level 4.3 g/dL (3.5-5.1); Alkaline Phosphatase 106 U/L (38-126); Anion Gap 10 mmol/L (4-12); Aspartate Amino Transferase 30 U/L (17-59); Bilirubin,Total 0.8 mg/dL (0.2-1.3); Blood Urea Nitrogen 13 mg/dL (9-20); Calcium 9.2 mg/dL (8.4-10.2); Carbon Dioxide 26 mmol/L (22-30); Chloride 96 mmol/L (98-107); Estimated CRCL calculation 72 ml/min; Estimated Glomerular Filt Rate > 60; Glucose 146 mg/dL (65-110); Potassium 4.6 mmol/L (3.4-5.0); Sodium 132 mmol/L (137-145)
[2024-07-18 10:07] LABS: NT Pro B Type Natriuretic Pept 725 pg/mL (19.9-100); Troponin I < 0.012 ng/mL (0.000-0.034)
[2024-07-18 10:57] LABS: Influenza A QL RT-PCR Negative (Negative); Influenza B QL RT-PCR Negative (Negative); RSV RNA, RT-PCR Negative (Negative); SARS-CoV-2 RNA PCR Negative (Negative)
--- OUTSIDE RECORDS SUMMARY | 2024-07-18 11:02 | XMS_ITS | Continuity of Care Document ---
Author Organization [facility] Address [address] [facility] [address] [place] [address] Phone Care Team Providers Care Practice Coordinator Name Role Phone Vandana OD OD, Muriel Unavailable Unavai lable Allergies, Adverse Reactions, Alerts Substance Reaction Status Criticality No Known Allergies Active No Inform ation Medications Medication Instructions Dosage Effective Dates (start - stop) Status Comments warfarin 7.5 mg tablet take 1 tablet by oral route every day 7.5 MG - Active metformin 1,000 mg tablet take 1 tablet by oral route 2 times every day with morning and evening meals 1000 MG - Active atorvastatin 20 mg tablet take 1 tablet by oral route every day 20 MG - Active sertraline 50 mg tablet take 1 tablet by oral route every day 50 MG - Active metoprolol tartrate 25 mg tablet take 1 tablet by oral route 2 times every day 25 MG - Active spironolactone 25 mg tablet take 1 tablet by oral route every day 25 MG - Active losartan 25 mg tablet take 1 tablet by o ral route every day 25 MG - Active tamsulosin 0.4 mg capsule take 1 capsule by oral route every day 1/2 hour following the same meal each day 0.4 MG - Active Tylenol 325 mg tablet take 1 tablet by o ral route every 4 hours as needed 325 MG - Active Ocuvite 150 mg-30 unit-5 mg-150 mg capsule - Active Procedures Procedure Date POSTOP FOLLOW-UP VISIT GDX Retina POSTOP FOLLOW-UP VISIT CATARACT SURG W/IOL, 1 STAGE POSTOP FOLLOW-UP VISIT POSTOP FOLLOW-UP VISIT CATARACT SURG W/IOL, 1 STAGE EYE EXAM, NEW PATIENT REFRACTION MEDICARE OPHTHALMIC BIOMETRY OPHTHALMIC BIOMETRY DILATED EXAM RIGHT EYE DILATED EXAM LEFT EYE EYE EXAM WITH PHOTOS MICROFLUID JULITO TEARS MCR ONLY 018 MICROFLUID JULITO TEARS MCR ONLY 018 PHARMACY 2 EYES Advance Directives Directive Yes / No Effective Date File Name No Information Encounters Encounter Description Practice Location Reason(s) For Visit Diagnoses Date Provider Providers Copied on Encounter [facility], [address] [place] [address], [place], [place], [id number], tel:[phone] OPH CONSULT KAREN CHAPPELL cat sx post op (chief complaint) Pseudoaphakia Oct- 8 Derheimer OD Muriel. [address], [address], [place], [place], [id number], [place]. tel:[phone] Referring Provider: Muriel Ross OD, [address], [place], [place], [id number]. tel:[phone] [facility], [address] [place] [address], [place], [place], [id number], tel:[phone] OPH CONSULT KAREN CHAPPELL Post-Op (chief complaint) Pseudoaphakia Oct- 8 Derheimer OD Muriel. [address], [address], [place], [place], [address], [place]. tel:[phone] Referring Provider: Muriel Ross OD, [address], [place], [place], [address]. tel:[phone] [facility], [address] [place] [address], [place], [place], [id number], tel:[phone] [facility] No Information Oct- 0 8 Joya Eason. [address], [address], [place], [place], [address], [place]. tel:[phone] Referring Provider: Jenaro Hinson MD P, [address], [place], [id number]. tel:[phone] [facility], [address] [place] [address], [id number], tel:[phone] OPH CONSULT KAREN CHAPPELL CE post op (chief complaint) Pseudoaphakia Sep-1 8 Derheimer OD Muriel. [address], [address], [place], [address], [place]. tel:[phone] Referring Provider: Muriel Ross OD, [address], [place], [id number]. tel:[phone] [facility], [address] [place] [address], [id number], tel:[phone] OPH CONSULT KAREN CHAPPELL Post-Op (chief complaint) Pseudoaphakia Sep-0 8 Derheimer OD Muriel. [address], [address], [place]. tel:[phone] Referring Provider: Muriel Ross OD, [address] [place] [address], [id number]. tel:[phone] [facility], [address] [place] [address], [id number], tel:[phone] [facility] No Information Sep-0 8 Joya Eason. [address], [address], [address], [place]. tel:[phone] Referring Provider: Jenaro Stephens, [address] [place] [address], [id number]. tel:[phone] [facility], [address] [place] [address], [id number], tel:[phone] OPH CONSULT KAREN CHAPPELL cataracts (chief complaint) diabetic (chief complaint) Age-related nuclear cataract, bilateralExudat nehal age-related macular degeneration of both eyes with inactive choroidal neovascularizat ionType 2 diabetes w/o complicationOth er vitreous opacities, bilateralKerato conjunct sicca, not specified as Sjogren's, bilateral 8 Joya Eason. [address], [address], [place], [place], [address], [place]. tel:[phone] Referring Provider: Jenaro Hinson MD P, [address], [place], [place], [address]. tel:[phone] Family History Family Member Type Diagnosis Age At Onset No Information Payers Payer name Insurance type Covered democrat ID Authoriza tion(s) [place]IC[place] OF [place] MB [id number] [facility] [id number] Social History Type Description Quantity Date Captured Comments Sex Male Smoking Status No Information Chief Complaint And Reason For Visit From encounter dated '03/11/2018 10:30'. cat sx post op (chief complaint). Description: Patient presents for one week cat sx post op, OS, 2nd eye, STD IOL aim dist OU. Pt reports no improvement in VA OU since surgery. Pt has a h/o AMD OU. Patient is followed by Dr. Strickland for his Retina, but he only goes once a year. Plan Of Treatment Date Type Action Status No Information History Of Present Illness Encounter Date Complaint History Of Prese nt Illness cat sx post op Patient presents for one week cat sx post op, OS, 2nd eye, STD IOL aim dist OU. Pt reports no improvement in VA OU since surgery. Pt has a h/o AMD OU. Patient is followed by Dr. Strickland for his Retina, but he only goes once a year. Post-Op The status of th e patient has improved. The patient reports no pain. Additional information: STND DVh/o wet AMD Ref'd [facility] Dr [facility]. CE post op The 77 year old male presents for a 1 week CE post op in the right eye. Pt states vision is doing well.STND DVh/o wet AMD OS scheduled [facility] Post-Op The status of th e patient has not changed. The patient reports no pain. Additional information: Stnd DVh/o Wet AMDOS scheduled 03/03/18. cataracts The 77 year old male presents for evaluation of cataracts in the right eye and left eye. Both eyes are affected and the condition is worsening x yrs. The pt reports glares, halos and blurry vision x 15 yrs. The pt states he has macular degeneration and is starting to gradually lose his peripheral vision from cataracts. The pt was referred by Dr. Knight (Leona Alcantar and (JG pt).Tear [id number] diabetic The patient is p resent for a diabetic evaluation in the right eye and left eye. The symptom is constant and stable. Pt does not monitor his bs and does not know what his last A1C is. Pt is currently followed by Dr. Ferreira. Instructions Date Instruction Additional Infor mation Impression/Plan Related to Pseud oaphakia Impression/Plan Related to Pseud oaphakia Impression/Plan Related to Pseud oaphakia Impression/Plan Related to Pseud oaphakia Impression/Plan Related to Kerat oconjunct sicca, not specified as Sjogren's, bilateral Impression/Plan Related to Other vitreous opacities, bilateral Impression/Plan Related to Type 2 diabetes w/o complication Impression/Plan Related to Age-r elated nuclear cataract, bilateral Impression/Plan Related to Exuda tive age-related macular degeneration of both eyes with inactive choroidal neovascularization Assessments Type Assessment Date assessment Pseudoaphakia
[2024-07-18 11:52] LABS: Add Urine Microscopic? YES; Appearance Urine Clear (Clear); Bacteria Urine 4+ /hpf; Bilirubin Urine Negative (Negative); Blood Urine Negative (Negative); Color Urine Yellow (Yellow); Glucose Urine UA Negative (Negative); Ketones Urine Negative (Negative); Leukocyte Esterase Ur 2+ LEU/UL (Negative); Need Manual Microscopic Reviewed; Nitrate Urine Negative (Negative); Non Pathogenic Casts 0-2; Protein Urine Negative (Negative); RBC Urine 0-2 /hpf (0-2); Specific Grav Ur 1.013 (1.001-1.035); Squamous Epithelial Cell Urine None Seen /hpf (Few); Urobilinogen Urine 0.2 mg/dL (<2.0); WBC Urine 21-50 /hpf (0-3); pH Urine 6.5 (5.0-9.0)
--- NOTE | 2024-07-18 12:43 | ECG_ITS ---
Test Date: 2024-07-18 09:43:45 Measurements Intervals [place] Rate: 59 P: 0 FL: 0 QRS: -33 QRSD: 88 T: 17 QT: 405 QTc: 403 Interpretive Statements ATRIAL FIBRILLATION WITH SLOW VENTRICULAR RESPONSE LEFT AXIS DEVIATION LOW QRS VOLTAGE IN PRECORDIAL LEADS ANTEROSEPTAL INFARCT, AGE INDETERMINATE INFERIOR INFARCT, AGE INDETERMINATE BORDERLINE ST ABNORMALITY- HIGH LATERAL LEADS ABNORMAL ECG No previous ECG available for comparison Electronically Signed On 07-18-2024 19:09:06 MARKETING BUSINESS ANALYST by Devon Jarvis D.O.
[2024-07-18 13:14] LABS: Troponin I < 0.012 ng/mL (0.000-0.034)
== END 2024-07-18 14:49 | disposition home or self-care (01) ==
PROVIDERS: Emergency Provider Emergency Medicine; PCP Family Medicine
DX: R07.89 Other chest pain (principal); N39.0 Urinary tract infection, site not specified; K44.9 Diaphragmatic hernia without obstruction or gangrene; I10 Essential (primary) hypertension; I48.0 Paroxysmal atrial fibrillation; E78.2 Mixed hyperlipidemia; N40.0 Benign prostatic hyperplasia without lower urinary tract symptoms; K21.9 Gastro-esophageal reflux disease without esophagitis; H35.30 Unspecified macular degeneration; H54.8 Legal blindness, as defined in USA; G47.33 Obstructive sleep apnea (adult) (pediatric); F32.A Depression, unspecified; Z85.51 Personal history of malignant neoplasm of bladder; Z79.01 Long term (current) use of anticoagulants; Z79.84 Long term (current) use of oral hypoglycemic drugs; Z79.899 Other long term (current) drug therapy; I51.7 Cardiomegaly; R94.31 Abnormal electrocardiogram [ECG] [EKG]
CPT/HCPCS: 36415; 71045; 71275; 74174; 80053; 81001; 83880; 84484; 85025; 85610; 85730; 87086; 87181; 87637; 93005; 96365; 99284; J0696; Q9967

== ENCOUNTER 2024-09-06 16:30 | Emergency (ER) | payer MEDICARE, SELFPAY ==
--- NOTE | ~2024-09-06 | CT_ITS ---
History: Fall PROCEDURE: CT head without contrast. COMPARISON: 06/28/2022 TECHNIQUE: Axial imaging of the head performed from the skull base to the vertex without IV contrast. Sagittal a nd coronal reformations obtained. DLP: 681 mGy-cm FINDINGS: Left frontal scalp hematoma with subtle increased attenuation within the sulci possibly artifactual, given the patient's history, cannot acute subarachnoid hemorrhage for which short-term follow-up is n eeded confirmation. The ventricles are enlarged. The dilatation of the ventricles is proportional to the degree of sulcal prominence, not uncommon in the senescent brain. Decreased attenuation is identified within the periventricular white matter, likely secondary to micr ovascular ischemic disease, in a patient of this age. There is no mass, mass effect or midline shift. Visualized paranasal sinuses are clear. The mastoid air cells are well aerated. No acute displaced fractures within the overlying cranium. Impression: Findings deep to the left frontal scalp hematoma for which a small subarachnoid hemorrhage cannot be excluded and for which short-term follow-up is needed for confirmation. Reviewed, dictated and finalized at location A. Impression: Findings deep to the left frontal scalp hematoma for which a small subarachnoid hemorrhage cannot be excluded and for which short-term follow-up is needed for confirmation.
--- NOTE | ~2024-09-06 | CT_ITS ---
History: Fall PROCEDURE: CT cervical spine without intravenous contrast. COMPARISON: 01/13/2022 TECHNIQUE: Multiple contiguous axial images of the cervical spine were performed without the administration of i ntravenous contrast. DLP: 655 mGy-cm FINDINGS: Straightening and slight reversal of the normal curvature of the cervical spine is identified, likely muscular in origin. Significant degenerative disease is identified, with osteophyte formation and disc space narrowing. No acute fractures are present. The bilateral lung apices are unremarkable. No soft tissue abnormality is present. The airway is patent. Impression: Straightening and slight reversal of the normal curvature of the cervical spine, likely muscular in o rigin. Severe degenerative disease, without acute fracture. Reviewed, dictated and finalized at location A. Impression: Straightening and slight reversal of the normal curvature of the cervical spine , likely muscular in origin. Severe degenerative disease, without acute fracture.
[2024-09-06 16:49] VITALS: BP 147/68; PULSE 114; RESP 16; TEMP 36.4; O2SAT 99
--- NOTE | 2024-09-06 16:54 | ED.FALL ---
HPI - Fall General Chief Complaint: Fall <Shanelle Pace PA-C - Last Filed: 09/06/24 19:01> Stated Complaint: Fall, +blood thinner, No LOC <Shanelle Pace PA-C - Last Filed: 09/06/24 19:01> Time Seen by Provider: 09/06/24 17:53 <Shanelle Pace PA-C - Last Filed: 09/06/24 19:01> Focused HPI: 84 y/o M presents to the ED with at bedside for a fall and head injury that occurred around 2:30. Pt has a hx of dementia. is at bedside who assists with hx. Pt was home alone when he attempted to walk to a different chair while using his recliner, tripped on a cord and fell to the ground. He did hit his head and presents with an abrasion and hematoma to his left forehead. Denies LOC. States he pressed his life alert button and EMS arrived and transported him here. He denies neck pain, back pain or other injuries acquired. Last tdap 2012. Patient is on warfarin for AFib. GENERAL: Well-appearing, well-nourished, and in no acute distress. HEAD: Normocephalic. Hematoma and abrasion to left forehead CHEST: Clear to auscultation. ?No respiratory distress. No tenderness to chest wall EXT: No tenderness to BUE or BLE HEART: Tachycardic and rhythm.? NEURO: No focal deficits Patient screened in triage and initial orders placed.? ?Additional care and disposition to be based upon?diagnostic testing and treatment. <Shanelle Pace PA-C - Last Filed: 09/06/24 19:01> History of Present Illness HPI Narrative: Agree with above MSE <Daniela Sutton MD - Last Filed: 09/06/24 21:26> Related Data Home Medications: Home Medications ?Medication ?Instructions ?Recorded ?Confirmed ?Last Taken ?Type tamsulosin 0.4 mg capsule 0.4 mg PO DAILY 12/15/19 08/27/23 02/27/20 History cholecalciferol (vitamin D3) 50 50 mcg PO DAILY 01/25/20 08/27/23 02/28/20 History mcg (2,000 unit) capsule melatonin 10 mg capsule 10 mg PO QHS 11/21/21 08/27/23 Unknown History vibegron 75 mg tablet (Gemtesa) 75 mg PO DAILY 02/10/23 08/27/23 Unknown History <Shanelle Pace PA-C - Last Filed: 09/06/24 19:01> Allergies/Adverse Reactions: Allergies Allergy/AdvReac Type Severity Reaction Status Date / Time No Known Allergies Allergy Verified 09/06/24 16:31 <Shanelle Pace PA-C - Last Filed: 09/06/24 19:01> Review of Systems Review of Systems: All systems reviewed & are unremarkable except as noted in HPI and below <Shanelle Pace PA-C - Last Filed: 09/06/24 19:01> [facility] Past Medical History Medical History: Medical History Acute UTI Foreign body in left ear Paroxysmal atrial fibrillation On warfarin for stroke prophylaxis due to atrial fibrillation. 2.2022 [id number]: 4, HASBLED 3( when INR fluctuating), 2 ( when inr stable) Bilateral leg weakness Bradycardia (~12/2019) At which time his metoprolol was discontinued. 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 Hearing loss Current use of superintendent terminal anticoagulation On warfarin for stroke prophylaxis due to atrial fibrillation. 2.2022 [id number]: 4, HASBLED 3( when INR fluctuating), 2 ( when inr stable) Essential hypertension Hiatal hernia Mixed hyperlipidemia Personal history of malignant neoplasm of bladder <Shanelle Pace PA-C - Last Filed: 09/06/24 19:01> Surgical History Surgical History: Surgical History History of bladder surgery Tumor removal History of tonsillectomy History of appendectomy <Shanelle Pace PA-C - Last Filed: 09/06/24 19:01> Family History Family History: Family History Other Adopted <Shanelle Pace PA-C - Last Filed: 09/06/24 19:01> Social History Social History: Social History Social History: Lives at home with his to whom he has been 50 years. He is typically independent with his activities. He enjoys working in his home wood shop. He has 2 adult children. His primary care provider is Dr. Muriel Ferreira. He designates his , Celina Stewart as his surrogate decision maker. He would like to be a full code Smoking status: Never smoker Alcohol intake: never Substance use: never Substance use type: does not use Do You Feel Safe in your Home?: Yes Lack of Transportation: No Lack of Food: Never True Current Housing: I Have Housing Concerned About Future Housing: No Difficulty Paying Gas/Electric Bills: No Difficulty Paying for Meds: No Currently Unemployed: No Education: Master's Degree or Higher Difficulty w/ Childcare or Family Care: No Living arrangements: with family Additional living arrangements comments: Spiritual care concerns: No <Shanelle Pace PA-C - Last Filed: 09/06/24 19:01> Exam Narrative: GENERAL: Well-appearing, well-nourished, and in no acute distress. HEAD: Normocephalic. Hematoma to the left forehead with overlying abrasion, no active bleeding EYES: PERRLA and EOMI. ENT: Nares clear, no rhinorrhea or epistaxis. Mucous membranes moist. NECK: No midline cervical spinous tenderness, crepitus, step-offs or deformities BACK: No midline thoracolumbar spinous tenderness, crepitus, step-offs or deformities CHEST: Clear to auscultation. No respiratory distress. No tenderness to chest wall HEART: Regular rate and rhythm. No murmur heard. Normal peripheral pulses. ABDOMEN: Soft, nontender, nondistended, normal active bowel sounds. EXTREMITIES: Normal range of motion. No edema. No tenderness to BUE are BLE SKIN: Warm, dry, no rash. NEURO: No focal deficits. Alert and oriented x3. Cranial nerves 2-12 intact. Strength out of 5 in BUE and BLE. Sensation intact throughout <Shanelle Pace PA-C - Last Filed: 09/06/24 19:01> Course PATIENT ACCESS ASSOCIATE/PA Physician Supervision I agree with midlevel documentation; I performed the medical decision making component of this evaluation. Briefly, patient presents with a fall, CT possible subarachnoid hemorrhage, he is on warfarin so this is reversed and he will be transferred to [facility] for neurosurgery consultation. Protecting airway without focal neurologic signs at this time. <Daniela Sutton MD - Last Filed: 09/06/24 21:26> Vital Signs Vital signs: Vital Signs Temperature 97.6 F 09/06/24 16:49 Pulse Rate 114 H 09/06/24 16:49 Respiratory Rate 16 09/06/24 16:49 Blood Pressure 147/68 H 09/06/24 16:49 Pulse Oximetry 99 09/06/24 16:49 Temperature 97.6 F 09/06/24 16:49 Pulse Rate 69 09/06/24 19:15 Respiratory Rate 16 09/06/24 19:15 Blood Pressure 157/101 H 09/06/24 18:46 Pulse Oximetry 100 09/06/24 19:15 <Shanelle Pace PA-C - Last Filed: 09/06/24 19:01> Vital Signs Temperature 97.6 F 09/06/24 16:49 Pulse Rate 114 H 09/06/24 16:49 Respiratory Rate 16 09/06/24 16:49 Blood Pressure 147/68 H 09/06/24 16:49 Pulse Oximetry 99 09/06/24 16:49 Temperature 97.6 F 09/06/24 16:49 Pulse Rate 69 09/06/24 19:15 Respiratory Rate 16 09/06/24 19:15 Blood Pressure 157/101 H 09/06/24 18:46 Pulse Oximetry 100 09/06/24 19:15 <Daniela Sutton MD - Last Filed: 09/06/24 21:26> MDM - Fall MDM Narrative Medical decision making narrative: 84-year-old male with history of AFib on warfarin presents to the emergency department with at bedside for a head injury and mechanical ground level fall that occurred at 2:30 p.m.. Patient did hit his head but denies LOC. Triage vitals with tachycardia 114 which has since improved 70s in normal sinus rhythm. Exam significant for hematoma with overlying abrasion to the left forehead, patient otherwise appears atraumatic. He has no focal deficits on exam. CT brain does show findings due to the left frontal scalp hematoma for which is small subarachnoid hemorrhage cannot be excluded and for which short-term follow-up is needed for confirmation. CT cervical spine shows straightening and slight reversal of the normal curvature of the cervical spine which is likely muscular in origin, there is severe degenerative disease without acute fracture. Patient and family updated on results. Patient's head of the bed elevated. Given he is on warfarin, feel he would benefit from transfer to tertiary center with trauma consult and neurosurgery consult, and repeat imaging. Patient and family agreeable with this, requesting [facility]. Discussed with [facility] ED who accepts patient for transfer. Accepting physician Dr. Kahn. INR is elevated at 2.6. Kcentra started prior to transfer. [facility] ED updated and are agreeable with starting Kcentra, advise to hold vitamin K at this time. <Shanelle Pace PA-C - Last Filed: 09/06/24 19:01> Lab Data Result diagrams: 09/06/24 18:08 09/06/24 18:08 <Shanelle Pace PA-C - Last Filed: 09/06/24 19:01> Labs: Lab Results 09/06/24 Range/Units 18:08 WBC 6.3 (4.5-10.0) K/mm3 RBC 4.22 L (4.6-6.20) M/mm3 Hgb 13.3 L (14.0-18.0) g/dL Hct 40.8 L (42.0-52.0) % MCV 96.7 (80-100) fl MCH 31.5 (26-34) pg MCHC 32.6 (32-36) g/dl RDW 12.7 (11.5-14.5) % Plt Count 219 (150-375) k/mm3 MPV 9.0 (7.4-10.4) fl Immature Gran % (Auto) 0.3 (0-0.5) % Neut % (Auto) 72.6 (45.5-73.1) % Lymph % (Auto) 17.1 L (18.3-44.2) % [place] % (Auto) 8.1 (2.6-8.5) % Eos % (Auto) 0.5 (0-4.4) % Baso % (Auto) 1.4 H (0.2-1.2) % Lymph # (Auto) 1.07 (0.9-3.2) K/mm3 [place] # (Auto) 0.5 (0.1-0.6) K/mm3 Eos # (Auto) 0.0 (0-0.3) K/mm3 Baso # (Auto) 0.1 (0.0-0.1) K/mm3 Abs Immat Gran (auto) 0.02 (0.00-0.031) K/mm3 Absolute Neuts (auto) 4.6 (1.3-6.7) K/mm3 Absolute Nucleated RBC 0.000 (0.0-0.012) K/mm3 Nucleated RBC % 0.0 (0.0-0.2) % PT 27.8 H (11.1-14.7) Seconds INR 2.6 APTT 38.1 H (22.3-36.8) Seconds Sodium 133 L (137-145) mmol/L Potassium 4.6 (3.4-5.0) mmol/L Chloride 95 L (98-107) mmol/L Carbon Dioxide 26 (22-30) mmol/L Anion Gap 12 (4-12) mmol/L BUN 13 (9-20) mg/dL Creatinine 0.89 (0.7-1.3) mg/dL Estim Creat Clear Calc 69 ml/min Estimated GFR > 60 (59 - ) Glucose 152 H (65-110) mg/dL Calcium 9.2 (8.4-10.2) mg/dL Total Bilirubin 0.8 (0.2-1.3) mg/dL AST 37 (17-59) U/L ALT 32 (6-50) U/L Alkaline Phosphatase 100 (38-126) U/L Total Protein 8.0 (6.3-8.2) g/dL Albumin 4.5 (3.5-5.1) g/dL <Shanelle Pace PA-C - Last Filed: 09/06/24 19:01> Lab Results 09/06/24 Range/Units 18:08 WBC 6.3 (4.5-10.0) K/mm3 RBC 4.22 L (4.6-6.20) M/mm3 Hgb 13.3 L (14.0-18.0) g/dL Hct 40.8 L (42.0-52.0) % MCV 96.7 (80-100) fl MCH 31.5 (26-34) pg MCHC 32.6 (32-36) g/dl RDW 12.7 (11.5-14.5) % Plt Count 219 (150-375) k/mm3 MPV 9.0 (7.4-10.4) fl Immature Gran % (Auto) 0.3 (0-0.5) % Neut % (Auto) 72.6 (45.5-73.1) % Lymph % (Auto) 17.1 L (18.3-44.2) % [place] % (Auto) 8.1 (2.6-8.5) % Eos % (Auto) 0.5 (0-4.4) % Baso % (Auto) 1.4 H (0.2-1.2) % Lymph # (Auto) 1.07 (0.9-3.2) K/mm3 [place] # (Auto) 0.5 (0.1-0.6) K/mm3 Eos # (Auto) 0.0 (0-0.3) K/mm3 Baso # (Auto) 0.1 (0.0-0.1) K/mm3 Abs Immat Gran (auto) 0.02 (0.00-0.031) K/mm3 Absolute Neuts (auto) 4.6 (1.3-6.7) K/mm3 Absolute Nucleated RBC 0.000 (0.0-0.012) K/mm3 Nucleated RBC % 0.0 (0.0-0.2) % PT 27.8 H (11.1-14.7) Seconds INR 2.6 APTT 38.1 H (22.3-36.8) Seconds Sodium 133 L (137-145) mmol/L Potassium 4.6 (3.4-5.0) mmol/L Chloride 95 L (98-107) mmol/L Carbon Dioxide 26 (22-30) mmol/L Anion Gap 12 (4-12) mmol/L BUN 13 (9-20) mg/dL Creatinine 0.89 (0.7-1.3) mg/dL Estim Creat Clear Calc 69 ml/min Estimated GFR > 60 (59 - ) Glucose 152 H (65-110) mg/dL Calcium 9.2 (8.4-10.2) mg/dL Total Bilirubin 0.8 (0.2-1.3) mg/dL AST 37 (17-59) U/L ALT 32 (6-50) U/L Alkaline Phosphatase 100 (38-126) U/L Total Protein 8.0 (6.3-8.2) g/dL Albumin 4.5 (3.5-5.1) g/dL <Daniela Sutton MD - Last Filed: 09/06/24 21:26> Critical Care Time Critical Care Time Critical Care Time: Yes <Daniela Sutton MD - Last Filed: 09/06/24 21:26> Total Critical Care Time: 31 <Daniela Sutton MD - Last Filed: 09/06/24 21:26> Discharge Plan Discharge Clinical Impression: Closed head injury Qualifiers: Encounter type: initial encounter Qualified Code(s): S09.90XA - Unspecified injury of head, initial encounter Hematoma of frontal scalp Qualifiers: Encounter type: initial encounter Qualified Code(s): S00.03XA - Contusion of scalp, initial encounter <Shanelle Pace PA-C - Last Filed: 09/06/24 19:01> Patient Disposition: Acute Care Hospital <Shanelle Pace PA-C - Last Filed: 09/06/24 19:01> Condition: Stable <Shanelle Pace PA-C - Last Filed: 09/06/24 19:01> Patient Language: Serbian <Shanelle Pace PA-C - Last Filed: 09/06/24 19:01> Prescriptions: No Action Gemtesa 75 mg tablet 75 mg PO DAILY tamsulosin 0.4 mg capsule 0.4 mg PO DAILY cholecalciferol (vitamin D3) 50 mcg (2,000 unit) capsule 50 mcg PO DAILY melatonin 10 mg capsule 10 mg PO QHS cephalexin 500 mg capsule 500 mg PO Q8H 7 Days Qty: 21 0RF phenazopyridine [Pyridium] 100 mg tablet 100 mg PO TID PRN (Reason: pain) Qty: 6 0RF warfarin 1 mg tablet 3 mg PO DAILY Qty: 270 3RF Rx Instructions: Take 3 mg q day with 4mg q day for total daily dose of 7 mg glipizide 5 mg tablet extended release 24hr 5 mg PO DAILY Qty: 90 2RF atorvastatin 20 mg tablet 20 mg PO DAILY Qty: 90 1RF Rx Instructions: DUE FOR APPOINTMENT spironolactone 25 mg tablet 25 mg PO DAILY Qty: 90 0RF Rx Instructions: DUE FOR AN APPOINTMENT sertraline 50 mg tablet 50 mg PO DAILY Qty: 90 0RF Rx Instructions: DUE FOR AN APPOINTMENT metformin 500 mg tablet extended release 24 hr 1,000 mg PO DAILY Qty: 180 0RF Rx Instructions: NEEDS APPOINTMENT FOR FURTHER REFILLS omeprazole 40 mg capsule,delayed release(DR/EC) See Rx Instructions .ROUTE .COMPLEX Qty: 90 0RF Dose Instruction: TAKE 1 CAPSULE BY MOUTH DAILY Rx Instructions: TAKE 1 CAPSULE BY MOUTH DAILY losartan 25 mg tablet See Rx Instructions .ROUTE .COMPLEX Qty: 90 1RF Dose Instruction: TAKE 1 TABLET BY MOUTH DAILY Rx Instructions: TAKE 1 TABLET BY MOUTH DAILY warfarin 4 mg tablet 4 mg PO DAILY Qty: 90 0RF Rx Instructions: take 4mg tab q day with 3 mg q day to equal total daily dose of 7 mg NEEDS APPOINTMENT,LAST REFILL <Shanelle Pace PA-C - Last Filed: 09/06/24 19:01> Follow-up/Referrals: Muriel Ferreira MD [Primary Care Provider] - <Shanelle Pace PA-C - Last Filed: 09/06/24 19:01>
--- OUTSIDE RECORDS SUMMARY | 2024-09-06 16:59 | XMS_ITS | Continuity of Care Document ---
Author Organization [facility] Address [address] [facility] [address] [place] [address] Phone Care Team Providers Care Budget Examiner Name Role Phone Vandana OD OD, Muriel [...] Providers Copied on Encounter [facility], [address] [place] [address], [id number], tel:[phone] OPH CONSULT KAREN CHAPPELL cat sx post op (chief complaint) Pseudoaphakia Feb- 8 Derheimer OD Muriel. [address], [address], [place], [place], [id number], [place]. tel:[phone] Referring Provider: Muriel Ross OD, [address], [place], [address] . tel:[phone] [facility], [address] [place] [address], [place], [place], [id number], tel:[phone] OPH CONSULT KAREN CHAPPELL Post-Op (chief complaint) Pseudoaphakia Feb- 8 Derheimer OD Muriel. [address], [address], [place], [place], [id number], [place]. tel:[phone] Referring Provider: Muriel Ross OD, [address], [place], [address] . tel:[phone] [facility], [address] [place] [address], [place], [place], [id number], tel:[phone] [facility] No Information Feb- 0 8 Joya Eason. [address], [address], [place], [place], [address], [place]. tel:[phone] Referring Provider: Jenaro Hinson MD P, [address], [place], [address] . tel:[phone] [facility], [address] [place] [address], [id number], tel:[phone] OPH CONSULT KAREN CHAPPELL CE post op (chief complaint) Pseudoaphakia Sep-1 8 Derheimer OD Muriel. [address], [address], [place]. tel:[phone] Referring Provider: Muriel Ross OD, [address], [place], [address] . tel:[phone] [facility], [address] [place] [address], [id number], tel:[phone] OPH CONSULT KAREN CHAPPELL Post-Op (chief complaint) Pseudoaphakia Sep-0 8 Derheimer OD Muriel. [address], [address], [place], [place], [id number], [place]. tel:[phone] Referring Provider: Muriel Ross OD, [address], [place], [address] . tel:[phone] [facility], [address] [place] [address], [id number], tel:[phone] [facility] No Information Sep-0 8 Joya Eason. [address], [id number], [place]. tel:[phone] Referring Provider: Jenaro Stephens, [address], [place], [address] . tel:[phone] [facility], [address] [place] [address], [id number], tel:[phone] OPH CONSULT KAREN CHAPPELL cataracts (chief complaint) diabetic (chief complaint) Age-related nuclear cataract, bilateralExudat nehal age-related macular degeneration of both eyes with inactive choroidal neovascularizat ionType 2 diabetes w/o complicationOth er vitreous opacities, bilateralKerato conjunct sicca, not specified as Sjogren's, bilateral Joya Eason. [address], [address], [place], [place], [id number], [place]. tel:[phone] Referring Provider: Jenaro Hinson MD P, [address], [place], [address] . tel:[phone] Family History Family Member Type Diagnosis Age At Onset No Information Payers Payer name Insurance type Covered libertarian ID Authoriza tion(s) [employer] MB [id number] [facility] [id number] Social History Type Description Quantity Date Captured [...] but he only goes once a year. Reason For Referral Reason For Referral No Information History Of Present Illness Encounter [...] DVh/o wet AMD [facility] post op The 77 year old male presents for a 1 week CE post op in the right eye. Pt states vision is doing well.STND DVh/o wet AMD OS scheduled 03/03Ref'd [facility] Post-Op The status of th e patient [...] Dr. Knight (Leona Alcantar and (JG pt).Tear Cdw170/300 diabetic The patient is p resent for a diabetic evaluation in the right eye and left eye. The symptom is constant and stable. Pt does not monitor his bs and does not know what his last A1C is. Pt is currently followed by Dr. Ferreira. 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
[2024-09-06 17:58] VITALS: BP 158/85; PULSE 75; RESP 15; O2SAT 99
[2024-09-06] MEDS: TETANUS,DIPHTHERIA,AC PERTUSSIS ADULT (0.5 ML) BOOSTRIX IM (18:00)
--- OUTSIDE RECORDS SUMMARY | 2024-09-06 18:08 | XMS_ITS | Continuity of Care Document ---
Author Organization [facility] Address [address] [place] [address] Phone Care Team Providers Care Athletic Field Custodian Name Role Phone Vandana OD OD, Muriel [...] Providers Copied on Encounter [facility], [address] [place] [address], [id number], tel:[phone] OPH CONSULT KAREN CHAPPELL cat sx post op (chief complaint) Pseudoaphakia Feb- 8 Derheimer OD Muriel. [address], [address], [place], [place], [id number], [place]. tel:[phone] Referring Provider: Muriel Ross OD, [address], [place], [address] . tel:[phone] [facility], [address] [place] [address], [place], [place], [id number], tel:[phone] OPH CONSULT KAREN CHAPPELL Post-Op (chief complaint) Pseudoaphakia Feb- 8 Derheimer OD Muriel. [address], [address], [place], [place], [id number], [place]. tel:[phone] Referring Provider: Muriel Ross OD, [address], [place], [address] . tel:[phone] [facility], [address] [place] [address], [place], [place], [id number], tel:[phone] [facility] No Information Feb- 0 8 Joya Eason. [address], [address], [place], [place], [address], [place]. tel:[phone] Referring Provider: Jenaro Hinson MD P, [address], [address] . tel:[phone] [facility], [address] [place] [address], [id number], tel:[phone] OPH CONSULT KAREN CHAPPELL CE post op (chief complaint) Pseudoaphakia Sep-1 8 Derheimer OD Muriel. [address], [address], [place]. tel:[phone] Referring Provider: Muriel Ross OD, [address], [place], [address] . tel:[phone] [facility], [address] [place] [address], [id number], tel:[phone] OPH CONSULT KAREN CHAPPELL Post-Op (chief complaint) Pseudoaphakia Sep-0 8 Derheimer OD Muriel. [address], [address], [place], [place], [address], [place]. tel:[phone] Referring Provider: Muriel Ross OD, [address], [place], [address] . tel:[phone] [facility], [address] [place] [address], [id number], tel:[phone] [facility] No Information Sep-0 8 Joya Eason. [address], [address], [place]. tel:[phone] Referring Provider: Jenaro Stephens, [address], [place], [address] . tel:[phone] [facility], [address] [place] [address], [id number], tel:[phone] OPH CONSULT KAREN CHAPPELL cataracts (chief complaint) diabetic (chief complaint) Age-related nuclear cataract, bilateralExudat nehal age-related macular degeneration of both eyes with inactive choroidal neovascularizat ionType 2 diabetes w/o complicationOth er vitreous opacities, bilateralKerato conjunct sicca, not specified as Sjogren's, bilateral Joya Eason. [address], [place], [place], [address], [place]. tel:[phone] Referring Provider: Jenaro Hinson MD P, [address], [place], [address] . tel:[phone] Family History Family Member Type Diagnosis Age At Onset No Information Payers Payer name Insurance type Covered democrat ID Authoriza tion(s) [employer] [employer] [place] [id number] [facility] [id number] Social History Type Description Quantity Date Captured [...] DVh/o wet AMD [facility] post [facility] The 77 year old male presents for a 1 week CE post op in the right eye. Pt states vision is doing well.STND DVh/o wet AMD OS scheduled 03/03Ref'd [facility] Dr [facility] Post-Op The status of th e [...] Dr. 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
[2024-09-06 18:11] VITALS: BP 158/85; PULSE 79; RESP 20; O2SAT 100
[2024-09-06 18:13] LABS: Basophils Absolute Auto 0.1 K/mm3 (0.0-0.1); Basophils Percent Auto 1.4 % (0.2-1.2); Eosinophils Percent Auto 0.5 % (0-4.4); Hematocrit 40.8 % (42.0-52.0); Hemoglobin 13.3 g/dL (14.0-18.0); Immature Granulocyte Absolute 0.02 K/mm3 (0.00-0.031); Immature Granulocyte Percent A 0.3 % (0-0.5); Lymphocytes Absolute Auto 1.07 K/mm3 (0.9-3.2); Lymphocytes Percent Auto 17.1 % (18.3-44.2); Mean Corpuscular HGB Conc 32.6 g/dl (32-36); Mean Corpuscular Hemoglobin 31.5 pg (26-34); Mean Corpuscular Volume 96.7 fl (80-100); Monocytes Absolute Auto 0.5 K/mm3 (0.1-0.6); Monocytes Percent Auto 8.1 % (2.6-8.5); Neutrophils Absolute Auto 4.6 K/mm3 (1.3-6.7); Neutrophils Percent Auto 72.6 % (45.5-73.1); Platelet Count Result 219 k/mm3 (150-375); Red Blood Count 4.22 M/mm3 (4.6-6.20); Red Cell Distribution Width 12.7 % (11.5-14.5); White Blood Count 6.3 K/mm3 (4.5-10.0)
[2024-09-06 18:26] LABS: Alanine Aminotransferase 32 U/L (6-50); Albumin Level 4.5 g/dL (3.5-5.1); Alkaline Phosphatase 100 U/L (38-126); Anion Gap 12 mmol/L (4-12); Aspartate Amino Transferase 37 U/L (17-59); Bilirubin,Total 0.8 mg/dL (0.2-1.3); Blood Urea Nitrogen 13 mg/dL (9-20); Calcium 9.2 mg/dL (8.4-10.2); Carbon Dioxide 26 mmol/L (22-30); Chloride 95 mmol/L (98-107); Estimated CRCL calculation 69 ml/min; Estimated Glomerular Filt Rate > 60; Glucose 152 mg/dL (65-110); Potassium 4.6 mmol/L (3.4-5.0); Sodium 133 mmol/L (137-145)
[2024-09-06 18:33] LABS: INR 2.6; Partial Thromboplastin Time 38.1 Seconds (22.3-36.8); Prothrombin Time 27.8 Seconds (11.1-14.7)
[2024-09-06 18:46] VITALS: BP 157/101; PULSE 69; RESP 14; O2SAT 100
[2024-09-06 19:00] VITALS: PULSE 78; RESP 17; O2SAT 99
[2024-09-06 19:15] VITALS: PULSE 69; RESP 16; O2SAT 100
[2024-09-06] MEDS: HUMAN PROTHROMBIN COMPLEX(PCC) 500 UNITS, HUMAN PROTHROMBIN COMPLEX(PCC) 2,000 UNITS in... 504 UNITS IV CONT (19:16)
== END 2024-09-06 19:22 | disposition short-term general hospital (02) ==
PROVIDERS: Emergency Provider Physician Assistant; PCP Family Medicine
DX: S00.83XA Contusion of other part of head, initial encounter (principal); Z23 Encounter for immunization; F03.90 Unspecified dementia, unspecified severity, without behavioral disturbance, psychotic disturbance, mood disturbance, and anxiety; I48.0 Paroxysmal atrial fibrillation; I10 Essential (primary) hypertension; E78.2 Mixed hyperlipidemia; H35.30 Unspecified macular degeneration; H54.8 Legal blindness, as defined in USA; M19.90 Unspecified osteoarthritis, unspecified site; K21.9 Gastro-esophageal reflux disease without esophagitis; K44.9 Diaphragmatic hernia without obstruction or gangrene; G47.33 Obstructive sleep apnea (adult) (pediatric); F32.A Depression, unspecified; Z85.51 Personal history of malignant neoplasm of bladder; Z79.01 Long term (current) use of anticoagulants; Z79.899 Other long term (current) drug therapy; Z79.84 Long term (current) use of oral hypoglycemic drugs; M50.30 Other cervical disc degeneration, unspecified cervical region; R93.0 Abnormal findings on diagnostic imaging of skull and head, not elsewhere classified; W18.09XA Striking against other object with subsequent fall, initial encounter
CPT/HCPCS: 36415; 70450; 72125; 80053; 85025; 85610; 85730; 90471; 90715; 96374; 99285; J7168